=== PATIENT | female | born 1945 | race Caucasian/White ===

== ENCOUNTER 2017-05-16 16:28 | Inpatient (IN) | payer OTHER, BC ==
[2017-05-16 17:01] VITALS: BMI 24.7
--- NOTE | 2017-05-16 17:20 | PDOC ---
History of Present Illness - General History Source: Family Exam Limitations: Other - History of Present Illness Initial Comments: 05/16/17 18:31 The patient is a 71 year old female, with a significant past medical history of , who presents to the emergency department accompanied by family members with signs of altered mental status for an unknown period of time. As per sister who arrived to the patients home from [place] today, the patient was found to be increasingly confused and with multiple lesions to the head, feet, and other extremities. Sister reports patient was able to recognize her and open the door. Family reports the patient lives at home with her brother. As per brother , patient visited her father at the hospital 1 week ago, and since then she has not wanted to leave the house, has been pulling her hair out, missing meals, and not bathing. Family states patient has been under a lot of stress over the past 6 months, as she has been hypervigilant over her father who has been at a retirement facility. Brother reports patient was last known well one week ago. The patient's brother reports she has had multiple episodes of urinary incontinence and she has complained of dysuria. Patient states the words are not making sense. Patients history is limited due to clinical condition. Allergies: Unable to obtain Past Surgical History: None reported Social History: Unknown if ever smoked, any ETOH or recreational drug use. <Nayan Cao - Last Filed: 05/17/17 00:01> <Cesario Smith - Last Filed: 05/17/17 00:07> - General Chief Complaint: Altered Mental Status Stated Complaint: ALTERED MENTAL STATUS Time Seen by Provider: 05/16/17 17:20 Past History <Nayan Cao - Last Filed: 05/17/17 00:01> - Suicide/Smoking/Psychosocial Hx Smoking History: Unknown if ever smoked <Cesario Smith - Last Filed: 05/17/17 00:07> - Past Medical History Allergies/Adverse Reactions: Allergies Allergy/AdvReac Type Severity Reaction Status Date / Time No Allergy Information Allergy Verified 05/16/17 16:50 Available Home Medications: Ambulatory Orders NK [No Known Home Medication] 05/16/17 Review of Systems - Review of Systems Able to Perform ROS?: No Comments:: 05/16/17 18:31 Pt's history is limited due to clinical condition. <Mary Ellen Caoroccophilip - Last Filed: 05/17/17 00:01> *Physical Exam - Vital Signs Last Vital Signs Temp Pulse Resp BP Pulse Ox 108 H 16 156/86 97 05/16/17 16:50 05/16/17 16:50 05/16/17 16:50 05/16/17 16:50 <Nayan Cao - Last Filed: 05/17/17 00:01> - Vital Signs Last Vital Signs Temp Pulse Resp BP Pulse Ox 108 H 16 156/86 97 05/16/17 16:50 05/16/17 16:50 05/16/17 16:50 05/16/17 16:50 - Physical Exam Comments: 05/16/17 17:06 EXAMINATION on initial evaluation CONSTITUTIONAL: Awake and alert; confused, disheveled, in no apparent distress HEAD: Normocephalic; atraumatic; + numerous excoriated circular lesions to the scalp; EYES: PERRL; EOM intact; no photophobia ENMT: External appears normal; mm-dry NECK: Supple; non-tender; no cervical lymphadenopathy; CARD: Normal S1, S2; no murmurs, rubs, or gallops RESP: Normal chest excursion with respiration; breath sounds clear and equal bilaterally; no wheezes, rhonchi, or rales ABD: Soft, non-distended; non-tender; no palpable organomegaly, no palpable hernias EXT: Normal ROM in all four extremities; non-tender to palpation; distal pulses intact SKIN: Warm, dry, + numerous circular (approximately 0.5 cm in diameter), excoriated lesions to upper chest, upper and mid back and lower extremities; NEURO: Patient oriented to self and place only; confused to date; uncooperative , moving all extremities symmetrically, gait-deferred; <Cesario Smith - Last Filed: 05/17/17 00:07> ED Treatment Course - LABORATORY CBC & Chemistry Diagram: 05/16/17 18:00 05/16/17 22:50 - ADDITIONAL ORDERS Additional order review: 05/16/17 18:00 RBC 5.71 H MCV 89.2 MCHC 32.0 RDW 14.4 MPV 9.9 Neutrophils % 77.9 Lymphocytes % 13.4 Monocytes % 7.9 Eosinophils % 0.3 Basophils % 0.5 - RADIOLOGY Radiograph Interpretation: 05/16/17 20:05 EXAM: CXR REVIEWED BY: Dr. Smith IMPRESSION: No acute pathology. EXAM: Head CT INTERPRETED BY: Dr. Valiente REVIEWED BY: Dr. Smith IMPRESSION: There is no evidence of acute infarction. There is no hemorrhage. If symptoms persist or worsen, consider follow brain MRI. - Medications Given in the ED: ED Medications Discontinued Medications Generic Name Dose Route Start Last Admin Trade Name Lina PRN Reason Stop Dose Admin Lorazepam 1 mg 05/16/17 17:36 05/16/17 17:45 Ativan Injection - IVPUSH 05/16/17 17:37 1 mg ONCE ONE Administration <Nayan Cao - Last Filed: 05/17/17 00:01> - LABORATORY CBC & Chemistry Diagram: 05/16/17 18:00 05/16/17 22:50 <Cesario Smith - Last Filed: 05/17/17 00:07> Medical Decision Making - Medical Decision Making 05/16/17 19:59 Patient 71-year-old female without previous medical history who presents to the ER with altered mental status of unknown duration, appearing confused, disheveled, with dry mucous membranes, with multiple excoriated lesions to scalp , chest, back and extremities (likely self-induced). Will rule out organic cause of the patient's delirium; will obtain CT of head; we'll obtain CBC/CMP/ alcohol level/drug screen/UA/urine culture. EKG shows sinus rhythm at 94, without evidence of acute ischemia; I suspect an acute psychotic break. Patient will likely require admission and a psychiatric evaluation inpatient. 05/16/17 20:08 After several attempts at verbal reassurance, patient received 1 mg of Ativan IV for sedation for expectant management. Upon initial evaluation, patient refused vital signs, evaluation by M.D. or an EKG. After administration of Ativan, patient was minimally somnolent but easily arousable, with oxygen saturation of 98% on room air. 05/16/17 20:37 Patient somnolent, easily arousable, does not cooperate at this time. CT of head and is shown mild atrophy but no evidence of acute intracranial pathology. There are no meningeal signs and I do not believe patient requires an LP at this time. I do not suspect meningoencephalitis. CBC shows elevated hemoglobin and hematocrit likely related to hemoconcentration. CMP reveals significant hyponatremia of 155 with elevated BUN and creatinine. Urinalysis shows no evidence of pyuria. Will stop normal saline infusion and will initiate D5W infusion at 125 mL an hour. Will admit with continuous hydration and psychiatric evaluation. 05/17/17 00:07 Repeat CMP reveals sodium 151 and potassium of 3. We'll administer 40 meq of kdur. <Cesario Smith - Last Filed: 05/17/17 00:07> *DC/Admit/Observation/Transfer - Attestations Scribe Attestion: 05/16/17 18:31 Documentation prepared by Nayan Cao, acting as biomedical field service engineer for Cesario Smith MD. <Nayan Cao - Last Filed: 05/17/17 00:01> - Discharge Dispostion Admit: Yes - Attestations Physician Attestion: 05/16/17 19:50 The documentation was prepared by the scribe under my direct supervision. I have reviewed the documentation which correctly represents the findings, medical decision-making and critical action taken by me. <Cesario Smith - Last Filed: 05/17/17 00:07> Diagnosis at time of Disposition: Hypernatremia Altered mental status Qualifiers: Altered mental status type: unspecified Qualified Code(s): R41.82 - Altered mental status, unspecified - Discharge Dispostion Condition at time of disposition: Fair
[2017-05-16] MEDS ORDERED: LORazepam 2 MG/ML SDV VIAL ONE (17:31)
[2017-05-16 18:11] LABS: BASOPHIL 0.5 % (0-2.0); EOSINOPHIL 0.3 % (0-4.5); MCH 28.5 pg (25.7-33.7); MEAN CELL VOLUME 89.2 fl (80-96); MEAN PLT VOLUME 9.9 fl (7.5-11.1); NEUTROPHILS 77.9 % (42.8-82.8); PLATELET COUNT 266 K/MM3 (134-434); RDW 14.4 % (11.6-15.6); WHITE BLOOD COUNT 11.4 K/mm3 (4.0-10.0)
[2017-05-16] MEDS ORDERED: SODIUM CHLORIDE 1,000 ML IV STA (18:20)
[2017-05-16 18:29] LABS: INR 1.18 (0.82-1.09); PROTHROMBIN TIME (PATIENT) 13.3 SEC (9.98-11.88)
[2017-05-16 18:48] LABS: ALBUMIN 3.7 g/dl (3.4-5.0); ANION GAP 10 (8-16); BILIRUBIN,TOTAL 0.9 mg/dL (0.2-1.0); CALCIUM 9.7 mg/dL (8.5-10.1); CO2 27 mmol/L (21-32); CREATININE 1.2 mg/dL (0.55-1.02); GLUCOSE,RANDOM 188 mg/dL (74-106); MAGNESIUM 2.8 mg/dL (1.8-2.4); SGOT/AST 30 U/L (15-37); SGPT/ALT 57 U/L (12-78); TOT PROT 7.6 g/dl (6.4-8.2)
[2017-05-16 18:51] LABS: ALK PHOS 89 U/L (45-117); CPK 106 IU/L (26-192); TROPONIN I < 0.02 ng/ml (0.00-0.05)
[2017-05-16 19:13] LABS: SALICYLATE < 4.0 mg/dl (0.0-30.0)
[2017-05-16] MEDS ORDERED: DEXTROSE 5%-WATER - 1,000 ML IV SCH ×2 (19:15→23:45)
[2017-05-16 20:09] LABS: URINE APPEARANCE SLCLOUDY; URINE BILIRUBIN NEGATIVE (NEGATIVE); URINE BLOOD NEGATIVE (NEGATIVE); URINE COLOR AMBER; URINE GLUCOSE (UA) 1+ (NEGATIVE); URINE KETONE TRACE (NEGATIVE); URINE NITRITE NEGATIVE (NEGATIVE)
[2017-05-16 20:10] LABS: URINE PROTEIN 1+ (NEGATIVE)
[2017-05-16 20:19] LABS: URINE BACTERIA RARE /hpf (NONE SEEN); URINE HYALINE CAST 9 /lpf; URINE MUCUS FEW; URINE RBC 1 /hpf (0-3); URINE WBC 4 /hpf (3-5)
[2017-05-16 20:22] LABS: URINE MARIJUANA THC NEGATIVE ng/ml (CUTOFF=50)
[2017-05-16 23:18] LABS: URINE LEUK ESTERASE Negative (NEGATIVE)
[2017-05-16 23:34] LABS: ANION GAP 9 (8-16); CALCIUM 8.9 mg/dL (8.5-10.1); CO2 28 mmol/L (21-32); CREATININE 1.1 mg/dL (0.55-1.02); GLUCOSE,RANDOM 271 mg/dL (74-106)
--- NOTE | 2017-05-16 23:35 | HP ---
CHIEF COMPLAINT: Altered Mental Status PCP: None HISTORY OF PRESENT ILLNESS: Ms Ramey is a 71yo F with no significant PMHx, no psychiatric history, who was brought to the ER by her sister due to AMS. History was taken from sister and from ER records of what brother states. 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 The sister (who lives out of town) would talk to her over the phone, and slowly notice a decline in her mental status over the past 1 month, stating her words would get shorter, and her thoughts would make less sense. For the past week she did not want to leave her house, and has been pulling her hair out, skipping meals, not drinking water, or bathing. When the sister came to visit, she saw the patient dry, eyes sunken , unkempt, with urine on the floor, and noticeably paranoia saying "you all are not real". ER course was notable for: (1) VSS, Na+ 155 --> given 1L of D5W in ER --> repeat (2) CT head - mild atrophy, no acute infarction, no hemorrhage (3) 2mg Ativan PAST MEDICAL HISTORY: None PAST SURGICAL HISTORY: None Social History: Lives w/ brother Smoking: Unable to obtain Alcohol: Unable to obtain Drugs: Unable to obtain Family History: No family psych history Allergies No Allergy Information Available Allergy (Verified 05/16/17 16:50) REVIEW OF SYSTEMS Unable to be obtained 2/2 sedation from Ativan Vital Signs Temperature Pulse Rate 108 H 05/16/17 16:50 Respiratory Rate 16 05/16/17 16:50 Blood Pressure 156/86 05/16/17 16:50 O2 Sat by Pulse Oximetry (%) 97 05/16/17 16:50 PHYSICAL EXAMINATION GEN: Sleeping, moves head during head and neck exam HEENT: Unable to assess pupils due to head movements during exam, visible excoriations on scalp CV: S1, S2, RRR LUNG: CTABL anteriorly ABD: Soft, NT, ND, normoactive BS MSK: Scattered excoriations along body NEURO: Unable to assess, pt sleeping Laboratory Last Values WBC 11.4 K/mm3 (4.0-10.0) H 05/16/17 18:00 RBC 5.71 M/mm3 (3.60-5.2) H 05/16/17 18:00 Hgb 16.3 GM/dL (10.7-15.3) H 05/16/17 18:00 Hct 51.0 % (32.4-45.2) H 05/16/17 18:00 MCV 89.2 fl (80-96) 05/16/17 18:00 MCH 28.5 pg (25.7-33.7) 05/16/17 18:00 MCHC 32.0 g/dl (32.0-36.0) 05/16/17 18:00 RDW 14.4 % (11.6-15.6) 05/16/17 18:00 Plt Count 266 K/MM3 (134-434) 05/16/17 18:00 MPV 9.9 fl (7.5-11.1) 05/16/17 18:00 Neutrophils % 77.9 % (42.8-82.8) 05/16/17 18:00 Lymphocytes % 13.4 % (8-40) 05/16/17 18:00 Monocytes % 7.9 % (3.8-10.2) 05/16/17 18:00 Eosinophils % 0.3 % (0-4.5) 05/16/17 18:00 Basophils % 0.5 % (0-2.0) 05/16/17 18:00 PT with INR 13.30 SEC (9.98-11.88) H 05/16/17 18:00 INR 1.18 (0.82-1.09) H 05/16/17 18:00 Sodium 155 mmol/L (136-145) H 05/16/17 18:00 Potassium 3.4 mmol/L (3.5-5.1) L 05/16/17 18:00 Chloride 118 mmol/L (98-107) H 05/16/17 18:00 Carbon Dioxide 27 mmol/L (21-32) 05/16/17 18:00 Anion Gap 10 (8-16) 05/16/17 18:00 BUN 50 mg/dL (7-18) H 05/16/17 18:00 Creatinine 1.2 mg/dL (0.55-1.02) H 05/16/17 18:00 Creat Clearance w eGFR 44.54 (>60) 05/16/17 18:00 Random Glucose 188 mg/dL (74-106) H 05/16/17 18:00 Calcium 9.7 mg/dL (8.5-10.1) 05/16/17 18:00 Magnesium 2.8 mg/dL (1.8-2.4) H 05/16/17 18:00 Total Bilirubin 0.9 mg/dL (0.2-1.0) 05/16/17 18:00 AST 30 U/L (15-37) 05/16/17 18:00 ALT 57 U/L (12-78) 05/16/17 18:00 Alkaline Phosphatase 89 U/L (45-117) 05/16/17 18:00 Ammonia 12.16 umol/L (11-32) 05/16/17 18:00 Creatine Kinase 106 IU/L (26-192) 05/16/17 18:00 Troponin I < 0.02 ng/ml (0.00-0.05) 05/16/17 18:00 Total Protein 7.6 g/dl (6.4-8.2) 05/16/17 18:00 Albumin 3.7 g/dl (3.4-5.0) 05/16/17 18:00 Urine Color Isi 05/16/17 19:52 Urine Appearance Slcloudy 05/16/17 19:52 Urine pH 5.0 (5.0-8.0) 05/16/17 19:52 Urine Protein 1+ (NEGATIVE) H 05/16/17 19:52 Urine Glucose (UA) 1+ (NEGATIVE) H 05/16/17 19:52 Urine Ketones Trace (NEGATIVE) H 05/16/17 19:52 Urine Blood Negative (NEGATIVE) 05/16/17 19:52 Urine Nitrite Negative (NEGATIVE) 05/16/17 19:52 Urine Bilirubin Negative (NEGATIVE) 05/16/17 19:52 Urine Urobilinogen 2.0 mg/dL (0.2-1.0) H 05/16/17 19:52 Urine RBC 1 /hpf (0-3) 05/16/17 19:52 Urine WBC 4 /hpf (3-5) 05/16/17 19:52 Ur Epithelial Cells Rare /hpf (FEW) 05/16/17 19:52 Urine Bacteria Rare /hpf (NONE SEEN) 05/16/17 19:52 Hyaline Casts 9 /lpf 05/16/17 19:52 Urine Mucus Few 05/16/17 19:52 Salicylates < 4.0 mg/dl (0.0-30.0) 05/16/17 18:00 Opiates Screen Negative ng/ml (GZUPUE=426) 05/16/17 18:00 Methadone Screen Negative ng/ml (FQSKAV=629) 05/16/17 18:00 Acetaminophen < 2.0 ug/ml (10.0-30.0) L 05/16/17 18:00 Barbiturate Screen Negative ng/ml (ORZNKC=799) 05/16/17 18:00 Phencyclidine Screen Negative ng/ml (CUTOFF=25) 05/16/17 18:00 Ur Amphetamines Screen Negative ng/ml (YZSCEC=754) 05/16/17 18:00 MDMA (Ecstasy) Screen Negative ng/ml (ZPBVXJ=040) 05/16/17 18:00 Benzodiazepines Screen Negative ng/ml (SCZDZH=317) 05/16/17 18:00 Cocaine Screen Negative ng/ml (AWVHMV=637) 05/16/17 18:00 U Marijuana (THC) Screen Negative ng/ml (CUTOFF=50) 05/16/17 18:00 Alcohol, Quantitative < 5.0 mg/dl (0-5) 05/16/17 18:00 ASSESSMENT/PLAN: Ms Ramey is a 71yo F with no significant PMHx, no psychiatric history, who was brought to the ER by her sister due to gradual onset AMS after poor PO intake. Found to have significant hypernatremia of 155. # Acute Psychosis - likely 2/2 progressive hyperNa due to dehydration (Uosm high ), Utox neg, UA neg, CXR neg, NH3 WNL, unlikely new onset schizo - Free Water deficit 3.4L, s/p 1L of D5W in ER, will stop all fluids, repeat BMPs during night, avoid overcorrecting >10meq in 24hr, restart D5W in AM - Psychiatry on board # Hypokalemia - repleted w/ 40mg PO, corrected w/ latest BMP # FEN - Hold fluids until repeat BMP, diabetic diet # PPx - Heparin SQ TID, PT ordered # Dispo - Admit to med/surg, await new BMP, expect improvement in mental status w/ Na+ correction d/w Dr Ra Matt MD - Internal Medicine Visit type - Emergency Visit Emergency Visit: Yes ED Registration Date: 05/16/17 Care time: The patient presented to the Emergency Department on the above date and was hospitalized for further evaluation of their emergent condition. - New Patient This patient is new to me today: Yes Date on this admission: 05/17/17 - Critical Care Critical Care patient: No
[2017-05-16] MEDS ORDERED: POTASSIUM CHLORIDE TABS 20 MEQ TABLET.ER (FP) PO ONE (23:50)
[2017-05-16] MEDS ORDERED: POTASSIUM CHLORIDE TABS 10 MEQ TABLET.ER (FP) ONE (23:53)
--- NOTE | 2017-05-17 01:11 | PN ---
Teaching Attending Note Name of Resident: Agapito Matt ATTENDING PHYSICIAN STATEMENT I saw and evaluated the patient. I reviewed the resident's note and discussed the case with the resident. I agree with the resident's findings and plan as documented with modifications below. SUBJECTIVE: 71-year-old female without previous medical history brought to ER after her sister who came from [place], noticed that she exhibited unusual behavior and was say that "this is not real". She appeared unkept a home, and was "not making sense". She was brought in to the hospital for further evaluation. As per patient's sister, patient had no history of eating disorder, psych disorder , or substance abuse. She lived at home and cared for her father. Pt found to have hypernatremia- 155meq Na, given 1 L NS IV in ER. It was calculated that she has about 2.5 L free water deficit. OBJECTIVE: Last Vital Signs Temp Pulse Resp BP Pulse Ox 108 H 16 156/86 97 05/16/17 16:50 05/16/17 16:50 05/16/17 16:50 05/16/17 16:50 general- drowsy, unkept heent -excoriations found on head neck -supple, no masses cv-s1+s2+ RRR chest cta b/l abdomen- soft, nontender, BS+ extremities- no pitting edema noted Abnormal Lab Results 05/16/17 05/16/17 05/16/17 18:00 18:00 18:00 WBC 11.4 H RBC 5.71 H Hgb 16.3 H Hct 51.0 H PT with INR 13.30 H INR 1.18 H Sodium 155 H Potassium 3.4 L Chloride 118 H BUN 50 H Creatinine 1.2 H Random Glucose 188 H Magnesium 2.8 H Urine Protein Urine Glucose (UA) Urine Ketones Urine Urobilinogen Acetaminophen 05/16/17 05/16/17 05/16/17 18:00 19:52 22:50 WBC RBC Hgb Hct PT with INR INR Sodium 151 H Potassium 3.0 L Chloride 114 H BUN 47 H Creatinine 1.1 H Random Glucose 271 H D Magnesium Urine Protein 1+ H Urine Glucose (UA) 1+ H Urine Ketones Trace H Urine Urobilinogen 2.0 H Acetaminophen < 2.[address] -negative for acute insults ASSESSMENT AND PLAN: #Altered mental status likely 2/[address] wnl. utox negative. Hypernatremia likely over 48hrs and therefore considered chronic. free water defcit of about 2.5 L. Patient given 1L NS in ER. Na has decreased from 154 to 151 Meq. -STOP IV fluids at this time as we do not want to drop sodium too rapidly -repeat BMP with am labs -can restart IVF in after am labs if a appropriate -would subsequently infuse D5W at about 80cc/hr, being careful NOT to drop Na by more than 12 Meq in 24 hrs -I discussed this with ER atng and housestaff. #Hypokalemia -supplement K PRN #hyperglycemia -insulin sliding scale #SHELL -already received IVF -avoid nephrotoxins #DVT ppx -heparin sc
[2017-05-17] MEDS: HEPARIN NA (PORCINE) 5,000 UNITS/ML 1ML VIAL SQ SCH ×3 (02:21→17:22)
[2017-05-17 03:12] LABS: ANION GAP 8 (8-16); CALCIUM 8.9 mg/dL (8.5-10.1); CO2 30 mmol/L (21-32); CREATININE 0.9 mg/dL (0.55-1.02); GLUCOSE,RANDOM 101 mg/dL (74-106)
[2017-05-17 07:35] LABS: BASOPHIL 0.5 % (0-2.0); EOSINOPHIL 1.3 % (0-4.5); MCH 29.5 pg (25.7-33.7); MCHC 33.4 g/dl (32.0-36.0); MEAN CELL VOLUME 88.1 fl (80-96); MEAN PLT VOLUME 9.6 fl (7.5-11.1); NEUTROPHILS 72.6 % (42.8-82.8); PLATELET COUNT 224 K/MM3 (134-434); RDW 14.4 % (11.6-15.6); WHITE BLOOD COUNT 10.2 K/mm3 (4.0-10.0)
[2017-05-17 08:19] LABS: ANION GAP 9 (8-16); CALCIUM 9.2 mg/dL (8.5-10.1); CO2 28 mmol/L (21-32); GLUCOSE,RANDOM 89 mg/dL (74-106)
[2017-05-17 08:21] LABS: CREATININE 0.8 mg/dL (0.55-1.02)
[2017-05-17] MEDS ORDERED: PT OWN MED DRAWER 7, Y5N ONE ×2 (09:02→11:04)
[2017-05-17] MEDS ORDERED: HALOPERIDOL DECANOATE 100 MG/ML IM ONE ×2 (09:13→10:00)
[2017-05-17] MEDS ORDERED: DEXTROSE 5%-WATER - 1,000 ML IV SCH (09:15)
[2017-05-17] MEDS ORDERED: HALOPERIDOL LACTATE 5 MG/ML IM ONE (10:15)
[2017-05-17] MEDS ORDERED: HALOPERIDOL LACTATE 5 MG/ML IM SCH (10:15)
[2017-05-17] MEDS: DEXTROSE 5%-WATER - 1,000 ML IV SCH (11:30)
--- NOTE | 2017-05-17 11:36 | CON.PSY ---
Psychiatry Consult Chief Complaint: Asked to see this patient, a 71 year old female with change in mental status. History of Present Problem: Patient at her bedside Chart reviewed Labs reviewed Nursing input reviewed Patient was found to be confused at home when her sister came to visit her from [place]. She has no hx of psychiatric illnesses and lives wit her brother. According to chart, patient was lately very active and busy visiting her father at the [place]. Symptoms: reports: Other (Very confused unable to give subjective history) - Current Medications Current Medications: Active Medications Haloperidol (Haldol Injection (Fast Acting) -) 2.5 mg IM ONCE MOJGAN Last Admin: 05/17/17 11:17 Dose: 2.5 mg Heparin Sodium (Porcine) (Heparin -) 5,000 unit SQ Q8H-IV MOJGAN Last Admin: 05/17/17 09:10 Dose: 5,000 unit Dextrose (D5w -) 1,000 mls @ 83 mls/hr IV .Q12H3M MOJGAN - Allergies Allergies: Allergies Allergy/AdvReac Type Severity Reaction Status Date / Time No Allergy Information Allergy Verified 05/16/17 16:50 Available - Current Living Status Usual Living Arrangement: Other (With brother) - Current Mental Status Evaluation Appearance: Bizarre Attitude: Suspicious - Affect Affect: Other (congruent) Appropriateness: Not Appropriate - Mood Mood: Anxious - Speech/Language Expressive: Coherent, Incoherent Receptive: Unable to Receive/Comprehend Spoken Words - Psychomotor Activity Psychomotor Activity: Slowed - Thought Process Thought Process: Loosening of Associations, Transgential - Thought Content Hallucinations: Absent Delusions: Present (" We are all in a cave!") Type: Bizarre - Cognition Attention: Other (Attention gained) Memory, Immediate Recall: Impaired Memory, Remote: Impaired - Abstraction Proverb Interpretation: Impaired Judgement: Severely Impaired - Insight Insight: Impaired - Suicidal Ideation Suicidal Ideation: No - Homicidal Ideation Homicidal Ideation: No Assessment/Plan Patient may have an underlying dementia which an affect her ability to recognize thirst as she may be too confused to know that she is thirsty. Doubt delirium as attention was gained, there was no fluctuating in level of consciousness and speech was intact. Rec: Treat hypernatremia/ Follow up with urine C&S t Stop Ativan Stop Haldol and follow mental status.
[2017-05-17 13:30] LABS: ANION GAP 9 (8-16); CALCIUM 9.3 mg/dL (8.5-10.1); CO2 29 mmol/L (21-32); CREATININE 0.8 mg/dL (0.55-1.02); GLUCOSE,RANDOM 111 mg/dL (74-106)
--- NOTE | 2017-05-17 16:49 | PN ---
Teaching Attending Note Name of Resident: Lana Triplett ATTENDING PHYSICIAN STATEMENT SUBJECTIVE: Patient seen and examined, oriented to self and place, but goes on tangential conversations, does answer most questions appropriately, denies any pain or discomfort. OBJECTIVE: Vital Signs Period Temp Pulse Resp BP Sys/Garrido Pulse Ox Last 24 Hr 97.3 F-98.6 F 84-108 16-20 107-156/70-88 97-97 Intake & Output 05/14/17 05/15/17 05/16/17 05/17/17 23:59 23:59 23:59 23:59 Intake Total 200 Balance 200 Weight 140 lb 140 lb General sitting in chair in no acute distress CVS S1S2 regular Chest CTAB, no rales or wheezing abdomen soft, NT, ND, positive bowel sounds, no CVA tenderness extremities no edema Neuro AA, oriented to self and place, power 5/5, EOMI, facial symmetry, sensation exam limited, no gross focal deficit Current Medications Haloperidol (Haldol Injection (Fast Acting) -) 2.5 mg IM ONCE [facility] Last Admin: 05/17/17 11:17 Dose: 2.5 mg Heparin Sodium (Porcine) (Heparin -) 5,000 unit SQ Q8H-IV MOJGAN Last Admin: 05/17/17 09:10 Dose: 5,000 unit Dextrose (D5w -) 1,000 mls @ 83 mls/hr IV .Q12H3M [facility] Laboratory Results - last 24 hr 05/16/17 05/16/17 05/16/17 18:00 18:00 18:00 WBC 11.4 H RBC 5.71 H Hgb 16.3 H Hct 51.0 H MCV 89.2 MCH 28.5 MCHC 32.0 RDW 14.4 Plt Count 266 MPV 9.9 Neutrophils % 77.9 Lymphocytes % 13.4 Monocytes % 7.9 Eosinophils % 0.3 Basophils % 0.5 PT with INR 13.30 H INR 1.18 H Sodium 155 H Potassium 3.4 L Chloride 118 H Carbon Dioxide 27 Anion Gap 10 BUN 50 H Creatinine 1.2 H Creat Clearance w eGFR 44.54 Random Glucose 188 H Calcium 9.7 Magnesium 2.8 H Total Bilirubin 0.9 AST 30 ALT 57 Alkaline Phosphatase 89 Ammonia Creatine Kinase 106 Troponin I < 0.02 Total Protein 7.6 Albumin 3.7 Urine Color Urine Appearance Urine pH Ur Specific [place] Urine Protein Urine Glucose (UA) Urine Ketones Urine Blood Urine Nitrite Urine Bilirubin Urine Urobilinogen Ur Leukocyte Esterase Urine RBC Urine WBC Ur Epithelial Cells Urine Bacteria Hyaline Casts Urine Mucus Urine Osmolality Ur Random Sodium Salicylates Opiates Screen Methadone Screen Acetaminophen Barbiturate Screen Phencyclidine Screen Ur Amphetamines Screen MDMA (Ecstasy) Screen Benzodiazepines Screen Cocaine Screen U Marijuana (THC) Screen Alcohol, Quantitative 05/16/17 05/16/17 05/16/17 18:00 18:00 18:00 WBC RBC Hgb Hct MCV MCH MCHC RDW Plt Count MPV Neutrophils % Lymphocytes % Monocytes % Eosinophils % Basophils % PT with INR INR Sodium Potassium Chloride Carbon Dioxide Anion Gap BUN Creatinine Creat Clearance w eGFR Random Glucose Calcium Magnesium Total Bilirubin AST ALT Alkaline Phosphatase Ammonia 12.16 Creatine Kinase Troponin I Total Protein Albumin Urine Color Urine Appearance Urine pH Ur Specific [place] Urine Protein Urine Glucose (UA) Urine Ketones Urine Blood Urine Nitrite Urine Bilirubin Urine Urobilinogen Ur Leukocyte Esterase Urine RBC Urine WBC Ur Epithelial Cells Urine Bacteria Hyaline Casts Urine Mucus Urine Osmolality Ur Random Sodium Salicylates Opiates Screen Negative Methadone Screen Negative Acetaminophen Barbiturate Screen Negative Phencyclidine Screen Negative Ur Amphetamines Screen Negative MDMA (Ecstasy) Screen Negative Benzodiazepines Screen Negative Cocaine Screen Negative U Marijuana (THC) Screen Negative Alcohol, Quantitative < 5.0 05/16/17 05/16/17 05/16/17 18:00 19:52 22:50 WBC RBC Hgb Hct MCV MCH MCHC RDW Plt Count MPV Neutrophils % Lymphocytes % Monocytes % Eosinophils % Basophils % PT with INR INR Sodium 151 H Potassium 3.0 L Chloride 114 H Carbon Dioxide 28 Anion Gap 9 BUN 47 H Creatinine 1.1 H Creat Clearance w eGFR Random Glucose 271 H D Calcium 8.9 Magnesium Total Bilirubin AST ALT Alkaline Phosphatase Ammonia Creatine Kinase Troponin I Total Protein Albumin Urine Color Isi Urine Appearance Slcloudy Urine pH 5.0 Ur Specific [place] 1.025 Urine Protein 1+ H Urine Glucose (UA) 1+ H Urine Ketones Trace H Urine Blood Negative Urine Nitrite Negative Urine Bilirubin Negative Urine Urobilinogen 2.0 H Ur Leukocyte Esterase Negative Urine RBC 1 Urine WBC 4 Ur Epithelial Cells Rare Urine Bacteria Rare Hyaline Casts 9 Urine Mucus Few Urine Osmolality Ur Random Sodium Salicylates < 4.0 Opiates Screen Methadone Screen Acetaminophen < 2.0 L Barbiturate Screen Phencyclidine Screen Ur Amphetamines Screen MDMA (Ecstasy) Screen Benzodiazepines Screen Cocaine Screen U Marijuana (THC) Screen Alcohol, Quantitative 05/16/17 05/16/17 05/17/17 23:37 23:37 02:46 WBC RBC Hgb Hct MCV MCH MCHC RDW Plt Count MPV Neutrophils % Lymphocytes % Monocytes % Eosinophils % Basophils % PT with INR INR Sodium 151 H Potassium 4.0 D Chloride 113 H Carbon Dioxide 30 Anion Gap 8 BUN 42 H Creatinine 0.9 Creat Clearance w eGFR Random Glucose 101 D Calcium 8.9 Magnesium Total Bilirubin AST ALT Alkaline Phosphatase Ammonia Creatine Kinase Troponin I Total Protein Albumin Urine Color Urine Appearance Urine pH Ur Specific [place] Urine Protein Urine Glucose (UA) Urine Ketones Urine Blood Urine Nitrite Urine Bilirubin Urine Urobilinogen Ur Leukocyte Esterase Urine RBC Urine WBC Ur Epithelial Cells Urine Bacteria Hyaline Casts Urine Mucus Urine Osmolality 1208 H Ur Random Sodium 223 Salicylates Opiates Screen Methadone Screen Acetaminophen Barbiturate Screen Phencyclidine Screen Ur Amphetamines Screen MDMA (Ecstasy) Screen Benzodiazepines Screen Cocaine Screen U Marijuana (THC) Screen Alcohol, Quantitative 05/17/17 05/17/17 05/17/17 06:00 06:00 12:35 WBC 10.2 H RBC 4.88 Hgb 14.4 D Hct 43.0 D MCV 88.1 MCH 29.5 MCHC 33.4 RDW 14.4 Plt Count 224 MPV 9.6 Neutrophils % 72.6 Lymphocytes % 16.3 D Monocytes % 9.3 Eosinophils % 1.3 D Basophils % 0.5 PT with INR INR Sodium 151 H 151 H Potassium 3.7 3.7 Chloride 114 H 113 H Carbon Dioxide 28 29 Anion Gap 9 9 BUN 41 H 38 H Creatinine 0.8 0.8 Creat Clearance w eGFR Random Glucose 89 111 H D Calcium 9.2 9.3 Magnesium Total Bilirubin AST ALT Alkaline Phosphatase Ammonia Creatine Kinase Troponin I Total Protein Albumin Urine Color Urine Appearance Urine pH Ur Specific [place] Urine Protein Urine Glucose (UA) Urine Ketones Urine Blood Urine Nitrite Urine Bilirubin Urine Urobilinogen Ur Leukocyte Esterase Urine RBC Urine WBC Ur Epithelial Cells Urine Bacteria Hyaline Casts Urine Mucus Urine Osmolality Ur Random Sodium Salicylates Opiates Screen Methadone Screen Acetaminophen Barbiturate Screen Phencyclidine Screen Ur Amphetamines Screen MDMA (Ecstasy) Screen Benzodiazepines Screen Cocaine Screen U Marijuana (THC) Screen Alcohol, Quantitative ASSESSMENT AND PLAN: 71 yof with AMS/paranoia, Hypernatremia. -AMS, ?enecephalopathy from hypernatremia, vs Acute psychosis from recent stressors that was exacerbated by her dehydration/hypernatremia -Hypovolumic hypernatremia Plan Resumed D5wat 80 ml/hr this AM, repeat Na unchanged, increase to 100 ml/hr, repeat BMP at 8 pm today, encourage PO intake, Neuro checks. Psychiatry input appreciated. Hold ativan and haldol. urinalysis neg, unlikely that UTI is contributing to current symptoms. Monitor for now. Change heparin to lovenox for DVTPPx. Dispo pending improvement in hypernatremia. Further dispo outpatient vs psych to be determined based on hospital course.
[2017-05-17 21:01] LABS: ANION GAP 8 (8-16); CALCIUM 9.3 mg/dL (8.5-10.1); CO2 28 mmol/L (21-32); CREATININE 0.8 mg/dL (0.55-1.02); GLUCOSE,RANDOM 128 mg/dL (74-106)
[2017-05-17] MEDS ORDERED: POTASSIUM CHLORIDE TABS 20 MEQ TABLET.ER (FP) PO ONE (22:48)
[2017-05-18] MEDS: DEXTROSE 5%-WATER - 1,000 ML IV SCH ×2 (00:43→13:45)
[2017-05-18] MEDS: HEPARIN NA (PORCINE) 5,000 UNITS/ML 1ML VIAL SQ SCH (02:04)
[2017-05-18] MEDS ORDERED: POTASSIUM CHLORIDE TABS 20 MEQ TABLET.ER (FP) PO ONE (07:43)
[2017-05-18 08:09] LABS: BASOPHIL 0.6 % (0-2.0); EOSINOPHIL 1.9 % (0-4.5); MCH 29.4 pg (25.7-33.7); MCHC 33.7 g/dl (32.0-36.0); MEAN CELL VOLUME 87.4 fl (80-96); MEAN PLT VOLUME 11.5 fl (7.5-11.1); NEUTROPHILS 63.6 % (42.8-82.8); PLATELET COUNT 153 K/MM3 (134-434); RDW 14.4 % (11.6-15.6); WHITE BLOOD COUNT 8.4 K/mm3 (4.0-10.0)
[2017-05-18 08:40] LABS: ALBUMIN 3.2 g/dl (3.4-5.0); ANION GAP 8 (8-16); CALCIUM 8.7 mg/dL (8.5-10.1); CO2 26 mmol/L (21-32); GLUCOSE,RANDOM 136 mg/dL (74-106)
[2017-05-18 08:44] LABS: ALK PHOS 77 U/L (45-117); BILIRUBIN,TOTAL 1.5 mg/dL (0.2-1.0); CREATININE 0.7 mg/dL (0.55-1.02); SGOT/AST 66 U/L (15-37); SGPT/ALT 83 U/L (12-78); TOT PROT 6.3 g/dl (6.4-8.2)
[2017-05-18] MEDS: ENOXAPARIN NA (PORCINE) 40 MG/0.4 ML DISP.SYRIN SQ SCH (09:58)
[2017-05-18 16:06] LABS: ANION GAP 7 (8-16); CALCIUM 9.1 mg/dL (8.5-10.1); CO2 28 mmol/L (21-32); CREATININE 0.7 mg/dL (0.55-1.02); GLUCOSE,RANDOM 117 mg/dL (74-106)
--- NOTE | 2017-05-18 17:07 | PN ---
Teaching Attending Note Name of Resident: Agapito Matt ATTENDING PHYSICIAN STATEMENT time of evaluation 9:30 AM I saw and evaluated the patient. I reviewed the resident's note and discussed the case with the resident. I agree with the resident's findings and plan as documented. SUBJECTIVE: patient seen and examined, oriented to self only, feels has not been alive for a few weeks, tangential conversations, though responds to ROS appropriately. No complaints. OBJECTIVE: Vital Signs Period Temp Pulse Resp BP Sys/Garrido Pulse Ox Last 24 Hr 97.3 F-98.9 F 84-99 18-20 116-158/56-94 97-98 Intake & Output 05/15/17 05/16/17 05/17/17 05/18/17 23:59 23:59 23:59 23:59 Intake Total 1736 0 Output Total 600 Balance 1736 -600 Weight 140 lb 140 lb general lying in bed in no acute distress CVS S1S2 regular Chest CTAB, no rales or wheezing abdomen soft, NT, ND, positive bowel sounds extremities no edema Neuro AA, oriented to self, but tangential in her conversations, facial symmetry , power 5/5, sensation positive to light touch, no pronator drift Current Medications Enoxaparin Sodium (Lovenox -) 40 mg SQ DAILY [facility] Last Admin: 05/18/17 09:58 Dose: 40 mg Dextrose/Sodium Chloride (D5-1/2ns -) 1,000 mls @ 75 mls/hr IV ASDIR [facility] Laboratory Results - last 24 hr 05/17/17 05/18/17 05/18/17 20:00 07:00 07:00 WBC 8.4 RBC 4.68 Hgb 13.8 Hct 40.9 MCV 87.4 MCH 29.4 MCHC 33.7 RDW 14.4 Plt Count 153 D MPV 11.5 H D Neutrophils % 63.6 Lymphocytes % 24.9 D Monocytes % 9.0 Eosinophils % 1.9 Basophils % 0.6 Sodium 149 H 146 H Potassium 3.4 L 3.6 Chloride 113 H 112 H Carbon Dioxide 28 26 Anion Gap 8 8 BUN 32 H 26 H Creatinine 0.8 0.7 Creat Clearance w eGFR > 60 Random Glucose 128 H 136 H Calcium 9.3 8.7 Total Bilirubin 1.5 H D Direct Bilirubin Cancelled AST 66 H D ALT 83 H D Alkaline Phosphatase 77 Total Protein 6.3 L Albumin 3.2 L 10/30/17 14:40 WBC RBC Hgb Hct MCV MCH MCHC RDW Plt Count MPV Neutrophils % Lymphocytes % Monocytes % Eosinophils % Basophils % Sodium 144 Potassium 3.8 Chloride 109 H Carbon Dioxide 28 Anion Gap 7 L BUN 19 H D Creatinine 0.7 Creat Clearance w eGFR Random Glucose 117 H Calcium 9.1 Total Bilirubin Direct Bilirubin AST ALT Alkaline Phosphatase Total Protein Albumin ASSESSMENT AND PLAN: 71 yof with AMS/paranoia, Hypernatremia. -AMS, ?Encephalopathy from hypernatremia, vs Acute psychosis from recent stressors that was exacerbated by her dehydration/hypernatremia -Hypovolumic hypernatremia Plan Na improving, change IVF to D51/2NS, repeat Na in AM. suspect all from poor po intake and hypovolumia. Encourage oral intake. Psychiatry input appreciated. Hold ativan and haldol. urinalysis neg, unlikely that UTI is contributing to current symptoms. Monitor for now. Dispo Continues to be paranoid inspite of appropriate Na correction. Unlikely metabolic. suspect underlying psychiatric concerns exacerbated from above. Discuss with psychiatry about disposition plan,?inpatient psych.
--- NOTE | 2017-05-18 17:09 | PN ---
Physical Exam: SUBJECTIVE: Patient seen and examined this AM. States she feels she is , and we are all ghosts. Not oriented. Calm, not combative. OBJECTIVE: Vital Signs Period Temp Pulse Resp BP Sys/Garrido Pulse Ox Last 24 Hr 97.3 F-98.9 F 84-99 18-20 116-158/56-94 97-98 GEN: Awake, alert, not oriented, believes she is , tangential with conversations, not combative HEENT: PERRLA, EOMi CV: S1, S2, RRR LUNG: CTABL ABD: Soft, NT, ND, normoactive BS MSK: Scattered excoriations along body NEURO: Difficult to assess, patient is tangential in thoughts Laboratory Last Values WBC 8.4 K/mm3 (4.0-10.0) 05/18/17 07:00 RBC 4.68 M/mm3 (3.60-5.2) 05/18/17 07:00 Hgb 13.8 GM/dL (10.7-15.3) 05/18/17 07:00 Hct 40.9 % (32.4-45.2) 05/18/17 07:00 MCV 87.4 fl (80-96) 05/18/17 07:00 MCH 29.4 pg (25.7-33.7) 05/18/17 07:00 MCHC 33.7 g/dl (32.0-36.0) 05/18/17 07:00 RDW 14.4 % (11.6-15.6) 05/18/17 07:00 Plt Count 153 K/MM3 (134-434) D 05/18/17 07:00 MPV 11.5 fl (7.5-11.1) H D 05/18/17 07:00 Neutrophils % 63.6 % (42.8-82.8) 05/18/17 07:00 Lymphocytes % 24.9 % (8-40) D 05/18/17 07:00 Monocytes % 9.0 % (3.8-10.2) 05/18/17 07:00 Eosinophils % 1.9 % (0-4.5) 05/18/17 07:00 Basophils % 0.6 % (0-2.0) 05/18/17 07:00 PT with INR 13.30 SEC (9.98-11.88) H 05/16/17 18:00 INR 1.18 (0.82-1.09) H 05/16/17 18:00 Sodium 144 mmol/L (136-145) 05/18/17 14:40 Potassium 3.8 mmol/L (3.5-5.1) 05/18/17 14:40 Chloride 109 mmol/L (98-107) H 05/18/17 14:40 Carbon Dioxide 28 mmol/L (21-32) 05/18/17 14:40 Anion Gap 7 (8-16) L 05/18/17 14:40 BUN 19 mg/dL (7-18) H D 05/18/17 14:40 Creatinine 0.7 mg/dL (0.55-1.02) 05/18/17 14:40 Creat Clearance w eGFR > 60 (>60) 05/18/17 07:00 Random Glucose 117 mg/dL (74-106) H 05/18/17 14:40 Calcium 9.1 mg/dL (8.5-10.1) 05/18/17 14:40 Magnesium 2.8 mg/dL (1.8-2.4) H 05/16/17 18:00 Total Bilirubin 1.5 mg/dL (0.2-1.0) H D 05/18/17 07:00 Direct Bilirubin Cancelled 05/18/17 07:00 AST 66 U/L (15-37) H D 05/18/17 07:00 ALT 83 U/L (12-78) H D 05/18/17 07:00 Alkaline Phosphatase 77 U/L (45-117) 05/18/17 07:00 Ammonia 12.16 umol/L (11-32) 05/16/17 18:00 Creatine Kinase 106 IU/L (26-192) 05/16/17 18:00 Troponin I < 0.02 ng/ml (0.00-0.05) 05/16/17 18:00 Total Protein 6.3 g/dl (6.4-8.2) L 05/18/17 07:00 Albumin 3.2 g/dl (3.4-5.0) L 05/18/17 07:00 Urine Color Isi 05/16/17 19:52 Urine Appearance Slcloudy 05/16/17 19:52 Urine pH 5.0 (5.0-8.0) 05/16/17 19:52 Ur Specific [place] 1.025 (1.005-1.025) 05/16/17 19:52 Urine Protein 1+ (NEGATIVE) H 05/16/17 19:52 Urine Glucose (UA) 1+ (NEGATIVE) H 05/16/17 19:52 Urine Ketones Trace (NEGATIVE) H 05/16/17 19:52 Urine Blood Negative (NEGATIVE) 05/16/17 19:52 Urine Nitrite Negative (NEGATIVE) 05/16/17 19:52 Urine Bilirubin Negative (NEGATIVE) 05/16/17 19:52 Urine Urobilinogen 2.0 mg/dL (0.2-1.0) H 05/16/17 19:52 Ur Leukocyte Esterase Negative (NEGATIVE) 05/16/17 19:52 Urine RBC 1 /hpf (0-3) 05/16/17 19:52 Urine WBC 4 /hpf (3-5) 05/16/17 19:52 Ur Epithelial Cells Rare /hpf (FEW) 05/16/17 19:52 Urine Bacteria Rare /hpf (NONE SEEN) 05/16/17 19:52 Hyaline Casts 9 /lpf 05/16/17 19:52 Urine Mucus Few 05/16/17 19:52 Urine Osmolality 1208 mosm/kg (300-900) H 05/16/17 23:37 Ur Random Sodium 223 MMOL/L 05/16/17 23:37 Salicylates < 4.0 mg/dl (0.0-30.0) 05/16/17 18:00 Opiates Screen Negative ng/ml (SSAQGP=558) 05/16/17 18:00 Methadone Screen Negative ng/ml (UCWOND=939) 05/16/17 18:00 Acetaminophen < 2.0 ug/ml (10.0-30.0) L 05/16/17 18:00 Barbiturate Screen Negative ng/ml (ENFBJT=571) 05/16/17 18:00 Phencyclidine Screen Negative ng/ml (CUTOFF=25) 05/16/17 18:00 Ur Amphetamines Screen Negative ng/ml (KLJRJC=163) 05/16/17 18:00 MDMA (Ecstasy) Screen Negative ng/ml (KZTJNO=741) 05/16/17 18:00 Benzodiazepines Screen Negative ng/ml (RZEJKM=424) 05/16/17 18:00 Cocaine Screen Negative ng/ml (BOUAVP=739) 05/16/17 18:00 U Marijuana (THC) Screen Negative ng/ml (CUTOFF=50) 05/16/17 18:00 Alcohol, Quantitative < 5.0 mg/dl (0-5) 05/16/17 18:00 Active Medications Generic Name Dose Route Start Last Admin Trade Name Lina PRN Reason Stop Dose Admin Enoxaparin Sodium 40 mg 05/18/17 10:00 05/18/17 09:58 Lovenox - SQ 40 mg DAILY MOJGAN Administration Dextrose/Sodium Chloride 1,000 mls @ 75 mls/hr 05/18/17 16:30 D5-1/2ns - IV ASDIR MOJGAN ASSESSMENT/PLAN: Ms Ramey is a 71yo F with no significant PMHx, no psychiatric history, who was brought to the ER by her sister due to gradual onset AMS after poor PO intake. Found to have significant hypernatremia of 155. # Acute on Chronic Encephalopathy - likely underlying dementia or psychiatric condition exacerbated by progressive hyperNa due to dehydration, Utox neg, UA neg, CXR neg, NH3 WNL - s/p D5W, Na+ corrected, changed to D5-1/2NS, still confused, Psychiatry believes underlying non-metabolic process ?dementia ?psychiatric condition, will discuss long-term care w/ family # Hypokalemia - resolved # FEN - D5 1/2NS, diabetic diet # PPx - Heparin SQ TID, PT ordered # Dispo - Psychiatry to see today, if recommend long-term care will have discussion w/ family tmrw with CM on board d/w Dr Uziel Matt MD - Internal Medicine Visit type - Emergency Visit Emergency Visit: No - New Patient This patient is new to me today: No - Critical Care Critical Care patient: No - Discharge Referral Referred to [facility] No
[2017-05-18] MEDS: DEXTROSE 5%-0.45% SALINE 1,000 ML IV SCH (18:11)
--- NOTE | 2017-05-18 18:49 | PN ---
Progress Note (short form) - Note Progress Note: Psych follow up. Patient seen, case reviewed, case discussed with . 71 year old female admitted with an acute onset of paranoia, confusion and paranoia. hypernatremia has been corrected , However swhe continues to be confused, disoriented and with some delusional thoughts. she is also accusing people being imposters. Refusing to eat because4 she feels her vfood is poisoned. Consusion aPPEARS TO BE THE PREDOMINANT SYMPTOM AT TYHIS TIME. Past Psych: No history of any previuos psych Illness. She had been actively involved in caring for ailing father, who apparantly . Rec: will start Zyprexa 5mg po hs fpr paranoia and restlessness. 2) patient clearly needs Shelter care to stabilize her physical and mental status. [facility] probably the best place for this captient due to her severe cognitive impairment. 3) would suggest Neuro consult with .
[2017-05-18] MEDS: OLANZapine 5 MG TABLET PO SCH (21:09)
[2017-05-18] MEDS ORDERED: OLANZapine 5 MG TABLET PO SCH (22:00)
--- NOTE | 2017-05-19 09:16 | PN ---
Physical Exam: SUBJECTIVE: Patient seen and examined. Still believes she is . Believes we are poisoning her food. Still AAOx0. Refused Zyprexa last night. No CP, SOB. Not eating food well. OBJECTIVE: Vital Signs Period Temp Pulse Resp BP Sys/Garrido Pulse Ox Last 24 Hr 97.6 F-98.4 F 82-99 18-20 133-147/72-94 98 GEN: Awake, alert, not oriented, believes she is not alive and everyone is poisoning her, tangential with conversations, not combative HEENT: PERRLA, EOMi CV: S1, S2, RRR LUNG: CTABL ABD: Soft, NT, ND, normoactive BS MSK: Scattered excoriations along body NEURO: Difficult to assess, patient is still tangential in thoughts Laboratory Results - last 24 hr 05/18/17 05/18/17 07:00 14:40 Sodium 146 H 144 Potassium 3.6 3.8 Chloride 112 H 109 H Carbon Dioxide 26 28 Anion Gap 8 7 L BUN 26 H 19 H D Creatinine 0.7 0.7 Creat Clearance w eGFR > 60 Random Glucose 136 H 117 H Calcium 8.7 9.1 Total Bilirubin 1.5 H D Direct Bilirubin Cancelled AST 66 H D ALT 83 H D Alkaline Phosphatase 77 Total Protein 6.3 L Albumin 3.2 L Active Medications Generic Name Dose Route Start Last Admin Trade Name Freq PRN Reason Stop Dose Admin Enoxaparin Sodium 40 mg 05/18/17 10:00 05/18/17 09:58 Lovenox - SQ 40 mg DAILY MOJGAN Administration Dextrose/Sodium Chloride 1,000 mls @ 75 mls/hr 05/18/17 16:30 05/18/17 18:11 D5-1/2ns - IV 75 mls/hr ASDIR MOJGAN Administration Olanzapine 5 mg 05/18/17 22:00 05/18/17 21:09 Zyprexa - PO Not Given HS MOJGAN ASSESSMENT/PLAN: Ms Ramey is a 71yo F with no significant PMHx, no psychiatric history, who was brought to the ER by her sister due to gradual onset AMS after poor PO intake. Found to have significant hypernatremia of 155. # Acute on Chronic Encephalopathy - metabolic w/u negative, likely underlying dementia or psychiatric condition exacerbated by recent stressors - Na+ corrected, on D5-1/2NS, still confused, likely underlying non- metabolic process ?dementia ?psychiatric condition - Discussed with pts family who agrees to SNF placement as for now; Pt did fail PT so qualifies for SNF, SW on the case - Will d/c claudia vest for now due to hopeful SNF placement tmrw - Avoid haldol, ativan; encourage night-time Zyprexa # Hypokalemia - resolved # FEN - D5 1/2NS @ 75cc/hr, diabetic diet # PPx - Heparin SQ TID, PT ordered # Dispo - Hopeful transfer to SNF tmrw, failed PT, will need long-term care for psychiatric disease Agapito Matt MD - Internal Medicine Visit type - Emergency Visit Emergency Visit: No - New Patient This patient is new to me today: No - Critical Care Critical Care patient: No - Discharge Referral Referred to [facility] No
[2017-05-19] MEDS: DEXTROSE 5%-0.45% SALINE 1,000 ML IV SCH (10:12)
[2017-05-19] MEDS: ENOXAPARIN NA (PORCINE) 40 MG/0.4 ML DISP.SYRIN SQ SCH (10:13)
[2017-05-19 11:25] LABS: ANION GAP 7 (8-16); CALCIUM 8.7 mg/dL (8.5-10.1); CO2 29 mmol/L (21-32); CREATININE 0.7 mg/dL (0.55-1.02); GLUCOSE,RANDOM 121 mg/dL (74-106)
--- NOTE | 2017-05-19 13:07 | CONSULT ---
Consult - text type - Consultation Consultation Note: Neurology History of Present Illness The patient is a 71 year old female, with reportedly no significant past medical history who presented to the emergency department reportedly accompanied by family members with signs of altered mental status for an unknown period of time. As per sister who arrived to the patients home from [place] n day of admission, the patient was found to be increasingly confused and with multiple lesions to the head, feet, and other extremities. Sister reports patient was able to recognize her and open the door. Family reports the patient lives at home with her brother. As per brother, patient visited her father at the hospital 1 week ago, and since then she has not wanted to leave the house, has been pulling her hair out, missing meals, and not bathing. Family states patient has been under a lot of stress over the past 6 months, as she has been hypervigilant over her father who has been at a retirement facility. The patient's brother reports she has had multiple episodes of urinary incontinence and she has complained of dysuria. Patient states the words are not making sense. the patient was admitted for further evaluation and management. She completed a noncontrast head CT which did not show any acute changes. During my evaluation, she was minimally verbal and if I asked what was bothering her she would not respond. She was asking if it will ever end, if asked hat she meant by that, she would say will the day ever end? She was seen by psychiatry and has been put on medication. She seems very guarded during my evaluation and possibly internally preoccupied. Unclear if recent stressors may have but will evaluate for any organic etiology. Past History - Suicide/Smoking/Psychosocial Hx Smoking History: Unknown if ever smoked - Past Medical History Allergies/Adverse Reactions: Allergies Allergy/AdvReac Type Severity Reaction Status Date / Time No Allergy Information Allergy Verified 05/16/17 16:50 Available Home Medications: Ambulatory Orders NK [No Known Home Medication] 05/16/17 Review of Systems Pt's history is limited due to clinical condition. *Physical Exam Vital Signs Period Temp Pulse Resp BP Sys/Garrido Pulse Ox Last 24 Hr 97.6 F-97.9 F 75-95 18-20 114-139/72-77 98-98 CONSTITUTIONAL: Awake and alert; confused, disheveled, in no apparent distress HEAD: Normocephalic; atraumatic; + numerous excoriated circular lesions to the scalp; EYES: PERRL; EOM intact; no photophobia ENMT: External appears normal; mm-dry NECK: Supple; non-tender; no cervical lymphadenopathy; CARD: Normal S1, S2; no murmurs, rubs, or gallops RESP: Normal chest excursion with respiration; breath sounds clear and equal bilaterally; no wheezes, rhonchi, or rales ABD: Soft, non-distended; non-tender; no palpable organomegaly, no palpable hernias EXT: Normal ROM in all four extremities; non-tender to palpation; distal pulses intact SKIN: Warm, dry, + numerous circular (approximately 0.5 cm in diameter), excoriated lesions to upper chest, upper and mid back and lower extremities; NEURO: Patient oriented to self and place only; confused to date; uncooperative , moving all extremities symmetrically, gait-deferred; CBCD WBC 8.4 K/mm3 (4.0-10.0) 05/18/17 07:00 RBC 4.68 M/mm3 (3.60-5.2) 05/18/17 07:00 Hgb 13.8 GM/dL (10.7-15.3) 05/18/17 07:00 Hct 40.9 % (32.4-45.2) 05/18/17 07:00 MCV 87.4 fl (80-96) 05/18/17 07:00 MCHC 33.7 g/dl (32.0-36.0) 05/18/17 07:00 RDW 14.4 % (11.6-15.6) 05/18/17 07:00 Plt Count 153 K/MM3 (134-434) D 05/18/17 07:00 MPV 11.5 fl (7.5-11.1) H D 05/18/17 07:00 CMP Sodium 143 mmol/L (136-145) 05/19/17 10:40 Potassium 4.2 mmol/L (3.5-5.1) 05/19/17 10:40 Chloride 107 mmol/L (98-107) 05/19/17 10:40 Carbon Dioxide 29 mmol/L (21-32) 05/19/17 10:40 Anion Gap 7 (8-16) L 05/19/17 10:40 BUN 13 mg/dL (7-18) D 05/19/17 10:40 Creatinine 0.7 mg/dL (0.55-1.02) 05/19/17 10:40 Creat Clearance w eGFR > 60 (>60) 05/18/17 07:00 Calcium 8.7 mg/dL (8.5-10.1) 05/19/17 10:40 Total Bilirubin 1.5 mg/dL (0.2-1.0) H D 05/18/17 07:00 AST 66 U/L (15-37) H D 05/18/17 07:00 ALT 83 U/L (12-78) H D 05/18/17 07:00 Alkaline Phosphatase 77 U/L (45-117) 05/18/17 07:00 Total Protein 6.3 g/dl (6.4-8.2) L 05/18/17 07:00 Albumin 3.2 g/dl (3.4-5.0) L 05/18/17 07:00 - RADIOLOGY EXAM: CXR IMPRESSION: No acute pathology. EXAM: Head CT INTERPRETED BY: Dr. Valiente IMPRESSION: There is no evidence of acute infarction. There is no hemorrhage. If symptoms persist or worsen, consider follow brain MRI. Medical Decision Making 71 year old female, with reportedly no significant past medical history who presented to the emergency department reportedly accompanied by family members with signs of altered mental status for an unknown period of time. She completed a noncontrast head CT which did not show any acute changes. She was seen by psychiatry and has been put on medication. Follow up Psych recommendation She seems very guarded during my evaluation and possibly internally preoccupied. Unclear if recent stressors may have but will evaluate for any organic etiology. MRI brain ordered Monitor labs/lytes Check for possible sources of infection Hypernatremia has improved Increased PO and IV hydration Reorientation as much as able
--- NOTE | 2017-05-19 20:33 | PN ---
Teaching Attending Note Name of Resident: Agapito Matt ATTENDING PHYSICIAN STATEMENT I saw and evaluated the patient. I reviewed the resident's note and discussed the case with the resident. I agree with the resident's findings and plan as documented. SUBJECTIVE: Patient comfortable lying in bed. She is alert, oriented to person. At times, she is paranoid. OBJECTIVE: Vital Signs Period Temp Pulse Resp BP Sys/Garrido Pulse Ox Last 24 Hr 97.6 F-98.5 F 75-88 18-20 114-139/72-78 98-98 HEART: S1S2, RRR LUNGS: Clear ABDOMEN: Soft, non-tender, non-distended, normal BS EXTREMITIES: No edema Current Medications Generic Name Dose Route Start Last Admin Trade Name Freq PRN Reason Stop Dose Admin Enoxaparin Sodium 40 mg 05/18/17 10:00 05/19/17 10:13 Lovenox - SQ 40 mg DAILY MOJGAN Administration Dextrose/Sodium Chloride 1,000 mls @ 75 mls/hr 05/18/17 16:30 05/19/17 10:12 D5-1/2ns - IV 75 mls/hr ASDIR MOJGAN Administration Olanzapine 5 mg 05/18/17 22:00 05/18/17 21:09 Zyprexa - PO Not Given HS MOJGAN ASSESSMENT AND PLAN: This is a 71 year old woman with no significant medical history who presented to the ER with confusion and poor oral intake. 1. Encephalopathy with paranoia - Etiology unclear - Remains confused after sodium has been corrected - Continue Zyprexa - Possible dementia - MRI of brain ordered 2. Hypernatremia - Improved 3. Hypokalemia - Improved
[2017-05-19] MEDS: OLANZapine 5 MG TABLET PO SCH ×2 (22:26→22:31)
[2017-05-20] MEDS: DEXTROSE 5%-0.45% SALINE 1,000 ML IV SCH ×2 (01:54→18:06)
--- NOTE | 2017-05-20 08:37 | CON.PSL ---
Psychology Consult Consult Specialty:: Clinical Psychology and Neuropsychology Reason for Consultation:: Pt. exhibits mental confusion, no appetite and unable to care for personal needs. History Provided By: Patient Limitations to Obtaining History: Clinical Condition Current Medications: Active Medications Enoxaparin Sodium (Lovenox -) 40 mg SQ DAILY [facility] Last Admin: 05/19/17 10:13 Dose: 40 mg Dextrose/Sodium Chloride (D5-1/2ns -) 1,000 mls @ 75 mls/hr IV ASDIR [facility] Last Admin: 05/20/17 01:54 Dose: 75 mls/hr Olanzapine (Zyprexa -) 5 mg PO HS [facility] Last Admin: 05/19/17 22:31 Dose: Not Given Allergies: Allergies Allergy/AdvReac Type Severity Reaction Status Date / Time No Known Allergies Allergy Verified 05/18/17 19:19 Does patient have pain?: No (Pt. denies pain.) Hx Alcohol Use: No Hx Substance Use: No Hx Substance Use Treatment: No - Family History Family History: Unremarkable (The patient did not indicate any issues regarding her family. She stated that she lived with her brother. 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 It did not appear to be a language barrier but a processing deficit.) Danger to Self and Others: No (She denied thoughts of sucidality and does not present as a danger to others.) Sleep: Poorly Appetite: Poor Serial Sevens Intact: No (She could not spell world backwards either.) Repeats 3 words told earlier: 2/3 Support System: Family (She could not state if she engaged in pleasurable activities. The patient was very confused about many of the questions posed to her.) Assessment/Plan The patient demonstrated limited awareness of her conditions, understanding of questions posed to her and ability to perform basic arithmetic as well as recall of three simple words. The patient indicated that she experiences auditory hallucinations but they are not command hallucinations. A Brain MRI is recommended to ascertain if a lesion can account for her altered mental state. It is recommended that she receive a neuropsychological assessment if she is transferred to a rehabilitation facility. The patient is incapable of making decisions for herself at this time. The patient will be seen again while she remains in this facility.
[2017-05-20 09:36] LABS: ANION GAP 9 (8-16); CALCIUM 8.5 mg/dL (8.5-10.1); CO2 26 mmol/L (21-32); CREATININE 0.6 mg/dL (0.55-1.02); GLUCOSE,RANDOM 112 mg/dL (74-106)
[2017-05-20] MEDS: ENOXAPARIN NA (PORCINE) 40 MG/0.4 ML DISP.SYRIN SQ SCH (09:43)
--- NOTE | 2017-05-20 10:39 | PN ---
Progress Note (short form) - Note Progress Note: Neurology History of Present Illness The patient is a 71 year old female, with reportedly no significant past medical history who presented to the emergency department reportedly accompanied by family members with signs of altered mental status for an unknown period of time. As per sister who arrived to the patients home from [place] n day of admission, the patient was found to be increasingly confused and with multiple lesions to the head, feet, and other extremities. Sister reports patient was able to recognize her and open the door. Family reports the patient lives at home with her brother. As per brother, patient visited her father at the hospital 1 week ago, and since then she has not wanted to leave the house, has been pulling her hair out, missing meals, and not bathing. Family states patient has been under a lot of stress over the past 6 months, as she has been hypervigilant over her father who has been at a [place] [facility] facility. The patient's brother reported she has had multiple episodes of urinary incontinence and she has complained of dysuria. Patient states the words are not making sense. the patient was admitted for further evaluation and management. She completed a noncontrast head CT which did not show any acute changes. During my evaluation, she was minimally verbal but more alert and cooperative today. Seen by neuropsychologist who deemed patient does not have capacity. Also noted auditory hallucinations. Unclear if recent stressors may have but will evaluate for any organic etiology and planning for MRI brain today. Active Medications Enoxaparin Sodium (Lovenox -) 40 mg SQ DAILY [facility] Last Admin: 05/20/17 09:43 Dose: 40 mg Dextrose/Sodium Chloride (D5-1/2ns -) 1,000 mls @ 75 mls/hr IV ASDIR [facility] Last Admin: 05/20/17 01:54 Dose: 75 mls/hr Olanzapine (Zyprexa -) 5 mg PO HS [facility] Last Admin: 05/19/17 22:31 Dose: Not Given *Physical Exam Vital Signs Period Temp Pulse Resp BP Sys/Garrido Pulse Ox Last 24 Hr 97.9 F-98.5 F 75-80 18-20 114-134/72-80 98 CONSTITUTIONAL: Awake and alert; confused, disheveled, in no apparent distress HEAD: Normocephalic; atraumatic; + numerous excoriated circular lesions to the scalp; EYES: PERRL; EOM intact; no photophobia ENMT: External appears normal; mm-dry NECK: Supple; non-tender; no cervical lymphadenopathy; CARD: Normal S1, S2; no murmurs, rubs, or gallops RESP: Normal chest excursion with respiration; breath sounds clear and equal bilaterally; no wheezes, rhonchi, or rales ABD: Soft, non-distended; non-tender; no palpable organomegaly, no palpable hernias EXT: Normal ROM in all four extremities; non-tender to palpation; distal pulses intact SKIN: Warm, dry, + numerous circular (approximately 0.5 cm in diameter), excoriated lesions to upper chest, upper and mid back and lower extremities; NEURO: Patient oriented to self and place only; confused to date; uncooperative , moving all extremities symmetrically, gait-deferred; CBCD WBC 8.4 K/mm3 (4.0-10.0) 05/18/17 07:00 RBC 4.68 M/mm3 (3.60-5.2) 05/18/17 07:00 Hgb 13.8 GM/dL (10.7-15.3) 05/18/17 07:00 Hct 40.9 % (32.4-45.2) 05/18/17 07:00 MCV 87.4 fl (80-96) 05/18/17 07:00 MCHC 33.7 g/dl (32.0-36.0) 05/18/17 07:00 RDW 14.4 % (11.6-15.6) 05/18/17 07:00 Plt Count 153 K/MM3 (134-434) D 05/18/17 07:00 MPV 11.5 fl (7.5-11.1) H D 05/18/17 07:00 CMP Sodium 141 mmol/L (136-145) 05/20/17 08:10 Potassium 3.6 mmol/L (3.5-5.1) 05/20/17 08:10 Chloride 106 mmol/L (98-107) 05/20/17 08:10 Carbon Dioxide 26 mmol/L (21-32) 05/20/17 08:10 Anion Gap 9 (8-16) 05/20/17 08:10 BUN 11 mg/dL (7-18) 05/20/17 08:10 Creatinine 0.6 mg/dL (0.55-1.02) 05/20/17 08:10 Creat Clearance w eGFR > 60 (>60) 05/18/17 07:00 Calcium 8.5 mg/dL (8.5-10.1) 05/20/17 08:10 Total Bilirubin 1.5 mg/dL (0.2-1.0) H D 05/18/17 07:00 AST 66 U/L (15-37) H D 05/18/17 07:00 ALT 83 U/L (12-78) H D 05/18/17 07:00 Alkaline Phosphatase 77 U/L (45-117) 05/18/17 07:00 Total Protein 6.3 g/dl (6.4-8.2) L 05/18/17 07:00 Albumin 3.2 g/dl (3.4-5.0) L 05/18/17 07:00 - RADIOLOGY EXAM: CXR IMPRESSION: No acute pathology. EXAM: Head CT INTERPRETED BY: Dr. Valiente IMPRESSION: There is no evidence of acute infarction. There is no hemorrhage. If symptoms persist or worsen, consider follow brain MRI. Medical Decision Making 71 year old female, with reportedly no significant past medical history who presented to the emergency department reportedly accompanied by family members with signs of altered mental status for an unknown period of time. She completed a noncontrast head CT which did not show any acute changes. She was seen by psychiatry and has been put on medication. Follow up Psych recommendation, likely to be etiology of her condition Has been put on Zyprexa Neuropsych note reviewed as well Deemed not to have decision making capacity Unclear if recent stressors may have but will evaluate for any organic etiology. MRI brain ordered Monitor labs/lytes Check for possible sources of infection Hypernatremia has improved Increased PO and IV hydration Reorientation as much as able
--- NOTE | 2017-05-20 10:44 | PN ---
Physical Exam: SUBJECTIVE: Patient seen and examined. She was off claudia vest last night without trouble. She refused Zyprexa again last night. Has no complaints currently. OBJECTIVE: Vital Signs Period Temp Pulse Resp BP Sys/Garrido Pulse Ox Last 24 Hr 97.9 F-98.5 F 75-80 18-20 114-134/72-80 98 GEN: Awake, alert, oriented to person, place, month, not to year. Memory intact , but seems internally preoccupied, endorses auditory hallucinations HEENT: PERRLA, EOMi CV: S1, S2, RRR LUNG: CTABL ABD: Soft, NT, ND, normoactive BS MSK: Scattered excoriations along body NEURO: Difficult to assess, patient is still tangential in thoughts Laboratory Results - last 24 hr 05/19/17 05/19/17 05/20/17 10:40 20:31 08:10 Sodium 143 141 Potassium 4.2 3.6 Chloride 107 106 Carbon Dioxide 29 26 Anion Gap 7 L 9 BUN 13 D 11 Creatinine 0.7 0.6 POC Glucometer 94 Random Glucose 121 H 112 H Calcium 8.7 8.5 Active Medications Generic Name Dose Route Start Last Admin Trade Name Freq PRN Reason Stop Dose Admin Enoxaparin Sodium 40 mg 05/18/17 10:00 05/20/17 09:43 Lovenox - SQ 40 mg DAILY MOJGAN Administration Dextrose/Sodium Chloride 1,000 mls @ 75 mls/hr 05/18/17 16:30 05/20/17 01:54 D5-1/2ns - IV 75 mls/hr ASDIR MOJGAN Administration Olanzapine 5 mg 05/18/17 22:00 05/19/17 22:31 Zyprexa - PO Not Given HS MOJGAN ASSESSMENT/PLAN: Ms Ramey is a 71yo F with no significant PMHx, no psychiatric history, who was brought to the ER by her sister due to gradual onset AMS after poor PO intake. Found to have significant hypernatremia of 155. # Acute on Chronic Encephalopathy - metabolic w/u negative, likely underlying psychiatric condition exacerbated by recent stressors - Na+ corrected, on D5-1/2NS, still confused, likely underlying psychiatric condition, MRI negative - Would like to d/c home with VNS, but need psychiatry clearance first, if unsafe will find other d/c plan - [place] vest d/c'd for now - Encourage night-time Zyprexa # Hypokalemia - resolved # FEN - D5 1/2NS @ 75cc/hr, diabetic diet # PPx - Heparin SQ TID, PT ordered # Dispo - If psych clears her, she can be discharged home tmrw with VNS. Agapito Matt MD - Internal Medicine Visit type - Emergency Visit Emergency Visit: No - New Patient This patient is new to me today: No - Critical Care Critical Care patient: No - Discharge Referral Referred to [facility] Med P.C.: No
[2017-05-20] MEDS ORDERED: LORazepam 2 MG/ML SDV VIAL IVPUSH ONE (14:45)
--- NOTE | 2017-05-20 18:06 | PN ---
Teaching Attending Note Name of Resident: Agapito Matt ATTENDING PHYSICIAN STATEMENT I saw and evaluated the patient. I reviewed the resident's note and discussed the case with the resident. I agree with the resident's findings and plan as documented. SUBJECTIVE:asymptomatic. states that she has not heard the man's voice while she has been in the hospital. but was giving her commands which was very stressful because she was unable to carry out everything that she told her. she stopped eating because "its a sign you have money and then people will steal from you". also was told she had to live on [address] because she was a felon and not allowed to sleep in her house anymore. As per RN she claims she was hearing voices earlier in the day. OBJECTIVE: Last Vital Signs Temp Pulse Resp BP Pulse Ox 98.4 F 84 20 120/54 95 05/20/17 17:16 05/20/17 17:16 05/20/17 17:16 05/20/17 17:16 05/20/17 09:00 General paranoid, flight of ideas CV S1 S2 RRR no murmur/rub/gallop Lungs CTA B/L no wheezing/rales/rhonchi ASSESSMENT AND PLAN: 71 yo F with no significant medical history who presented to the ER with confusion and poor oral intake. 1. Encephalopathy with paranoia- remains paranoid. MRI done which is negative for acute pathology. concerning with ongoing hallucinations if pt is a threat to herself or others. will need to discuss with psych to confirm does not need inpatient psych placement vs [facility] placement. appears brother declined truck terminal manager placmeent at this time. pt will need more close monitoring. unclear if brother will be able to provide this. on zyprexa. 2. Hypernatremia-due to poor oral intake. resolved. d/c ivf 3. Hypokalemia- Improved 4, leukocytosis- likely reactive. no signs of infection. resolved 5. DVT ppx- lovenox 6. pt is medically optimized to leave acute care setting. however concern about placement. will need to d/w psych about dispo
[2017-05-20] MEDS: OLANZapine 5 MG TABLET PO SCH (21:22)
[2017-05-21] MEDS ORDERED: PT OWN MED DRAWER 7, Y5N ONE (06:56)
--- NOTE | 2017-05-21 08:33 | PN ---
Physical Exam: SUBJECTIVE: Patient seen and examined OBJECTIVE: Vital Signs Period Temp Pulse Resp BP Sys/Garrido Pulse Ox Last 24 Hr 96.7 F-98.4 F 67-86 18-20 107-120/54-76 95-96 GENERAL: The patient is awake, alert, and fully oriented, in no acute distress. HEAD: Normal with no signs of trauma. EYES: PERRL, extraocular movements intact, sclera anicteric, conjunctiva clear. No ptosis. ENT: Ears normal, nares patent, oropharynx clear without exudates, moist mucous membranes. NECK: Trachea midline, full range of motion, supple. LUNGS: Breath sounds equal, clear to auscultation bilaterally, no wheezes, no crackles, no accessory muscle use. HEART: Regular rate and rhythm, S1, S2 without murmur, rub or gallop. ABDOMEN: Soft, nontender, nondistended, normoactive bowel sounds, no guarding, no rebound, no hepatosplenomegaly, no masses. EXTREMITIES: 2+ pulses, warm, well-perfused, no edema. NEUROLOGICAL: Cranial nerves II through XII grossly intact. Normal speech, gait not observed. PSYCH: Normal mood, normal affect. SKIN: Warm, dry, normal turgor, no rashes or lesions noted Laboratory Results - last 24 hr 05/20/17 08:10 Sodium 141 Potassium 3.6 Chloride 106 Carbon Dioxide 26 Anion Gap 9 BUN 11 Creatinine 0.6 Random Glucose 112 H Calcium 8.5 Active Medications Generic Name Dose Route Start Last Admin Trade Name Freq PRN Reason Stop Dose Admin Enoxaparin Sodium 40 mg 05/18/17 10:00 05/20/17 09:43 Lovenox - SQ 40 mg DAILY MOJGAN Administration Olanzapine 5 mg 05/18/17 22:00 05/20/17 21:22 Zyprexa - PO 5 mg HS MOJGAN Administration ASSESSMENT/PLAN: Ms Ramey is a 71yo F with no significant PMHx, no psychiatric history, who was brought to the ER by her sister due to gradual onset AMS after poor PO intake. Found to have significant hypernatremia of 155. # Acute on Chronic Encephalopathy - metabolic w/u negative, likely underlying psychiatric condition exacerbated by recent stressors - Na+ corrected, on D5-1/2NS, still confused, likely underlying psychiatric condition, MRI negative - Would like to d/c home with VNS, but need psychiatry clearance first, if unsafe will find other d/c plan - [facility] d/c'd for now # Hypokalemia - resolved # FEN - D5 1/2NS @ 75cc/hr, diabetic diet # PPx - Heparin SQ TID, PT ordered # Dispo - If psych clears her, she can be discharged home today with VNS. Agapito Matt MD - Internal Medicine
[2017-05-21 08:47] LABS: ANION GAP 10 (8-16); CALCIUM 8.7 mg/dL (8.5-10.1); CO2 28 mmol/L (21-32); CREATININE 0.8 mg/dL (0.55-1.02); GLUCOSE,RANDOM 123 mg/dL (74-106)
[2017-05-21] MEDS: ENOXAPARIN NA (PORCINE) 40 MG/0.4 ML DISP.SYRIN SQ SCH (09:34)
--- NOTE | 2017-05-21 09:44 | PN ---
Progress Note (short form) - Note Progress Note: Neurology History of Present Illness The patient is a 71 year old female, with reportedly no significant past medical history who presented to the emergency department reportedly accompanied by family members with signs of altered mental status for an unknown period of time. As per sister who arrived to the patients home from [place] n day of admission, the patient was found to be increasingly confused and with multiple lesions to the head, feet, and other extremities. Sister reports patient was able to recognize her and open the door. Family reports the patient lives at home with her brother. As per brother, patient visited her father at the hospital 1 week ago, and since then she has not wanted to leave the house, has been pulling her hair out, missing meals, and not bathing. Family states patient has been under a lot of stress over the past 6 months, as she has been hypervigilant over her father who has been at a care home facility. The patient's brother reported she has had multiple episodes of urinary incontinence and she has complained of dysuria. Patient states the words are not making sense. the patient was admitted for further evaluation and management. She completed a noncontrast head CT which did not show any acute changes. During my evaluation, she was minimally verbal but more alert and cooperative today. Seen by neuropsychologist who deemed patient does not have capacity. Also noted auditory hallucinations. Unclear if recent stressors may have but will evaluate for any organic etiology and MRI brain completed and reviewed in detail. The patient was more awake and alert and interactive today, writing letter but still seems to be having hallucinations of a "man that expects her to pay" and states she does not have the money. Active Medications Enoxaparin Sodium (Lovenox -) 40 mg SQ DAILY [facility] Last Admin: 05/21/17 09:34 Dose: 40 mg Olanzapine (Zyprexa -) 5 mg PO HS [facility] Last Admin: 05/20/17 21:22 Dose: 5 mg *Physical Exam Vital Signs Period Temp Pulse Resp BP Sys/Garrido Pulse Ox Last 24 Hr 97.9 F-98.5 F 75-80 18-20 114-134/72-80 98 CONSTITUTIONAL: Awake and alert; confused, disheveled, in no apparent distress HEAD: Normocephalic; atraumatic; + numerous excoriated circular lesions to the scalp; EYES: PERRL; EOM intact; no photophobia ENMT: External appears normal; mm-dry NECK: Supple; non-tender; no cervical lymphadenopathy; CARD: Normal S1, S2; no murmurs, rubs, or gallops RESP: Normal chest excursion with respiration; breath sounds clear and equal bilaterally; no wheezes, rhonchi, or rales ABD: Soft, non-distended; non-tender; no palpable organomegaly, no palpable hernias EXT: Normal ROM in all four extremities; non-tender to palpation; distal pulses intact SKIN: Warm, dry, + numerous circular (approximately 0.5 cm in diameter), excoriated lesions to upper chest, upper and mid back and lower extremities; NEURO: Patient oriented to self and place only; confused to date; uncooperative , moving all extremities symmetrically, gait-deferred; CBCD WBC 8.4 K/mm3 (4.0-10.0) 05/18/17 07:00 RBC 4.68 M/mm3 (3.60-5.2) 05/18/17 07:00 Hgb 13.8 GM/dL (10.7-15.3) 05/18/17 07:00 Hct 40.9 % (32.4-45.2) 05/18/17 07:00 MCV 87.4 fl (80-96) 05/18/17 07:00 MCHC 33.7 g/dl (32.0-36.0) 05/18/17 07:00 RDW 14.4 % (11.6-15.6) 05/18/17 07:00 Plt Count 153 K/MM3 (134-434) D 05/18/17 07:00 MPV 11.5 fl (7.5-11.1) H D 05/18/17 07:00 CMP Sodium 142 mmol/L (136-145) 05/21/17 06:30 Potassium 3.2 mmol/L (3.5-5.1) L 05/21/17 06:30 Chloride 104 mmol/L (98-107) 05/21/17 06:30 Carbon Dioxide 28 mmol/L (21-32) 05/21/17 06:30 Anion Gap 10 (8-16) 05/21/17 06:30 BUN 26 mg/dL (7-18) H D 05/21/17 06:30 Creatinine 0.8 mg/dL (0.55-1.02) D 05/21/17 06:30 Creat Clearance w eGFR > 60 (>60) 05/18/17 07:00 Calcium 8.7 mg/dL (8.5-10.1) 05/21/17 06:30 Total Bilirubin 1.5 mg/dL (0.2-1.0) H D 05/18/17 07:00 AST 66 U/L (15-37) H D 05/18/17 07:00 ALT 83 U/L (12-78) H D 05/18/17 07:00 Alkaline Phosphatase 77 U/L (45-117) 05/18/17 07:00 Total Protein 6.3 g/dl (6.4-8.2) L 05/18/17 07:00 Albumin 3.2 g/dl (3.4-5.0) L 05/18/17 07:00 - RADIOLOGY EXAM: CXR IMPRESSION: No acute pathology. EXAM: Head CT INTERPRETED BY: Dr. Valiente IMPRESSION: There is no evidence of acute infarction. There is no hemorrhage. If symptoms persist or worsen, consider follow brain MRI. Medical Decision Making 71 year old female, with reportedly no significant past medical history who presented to the emergency department reportedly accompanied by family members with signs of altered mental status for an unknown period of time. She completed a noncontrast head CT which did not show any acute changes. She was seen by psychiatry and has been put on medication. Follow up Psych recommendation, likely to be etiology of her condition Has been put on Zyprexa Neuropsych note reviewed as well Deemed not to have decision making capacity Unclear if recent stressors may have been significant contributer She is more interactive and conversive but not at baseline MRI brain reviewed in detail and with age related changes but no acute abnormalities Hypernatremia has improved Increased PO and IV hydration Reorientation as much as able
--- NOTE | 2017-05-21 11:40 | PN ---
Physical Exam: SUBJECTIVE: Patient seen and examined. Alert, talking more this AM. States a man is talking to her and asking her to bring all of her family to him and to pay him money. The voice does not directly tell her to harm other people, but may be hinting at it. Will ask psych to re-evaluate. OBJECTIVE: Vital Signs Period Temp Pulse Resp BP Sys/Garrido Pulse Ox Last 24 Hr 96.7 F-98.4 F 80-86 20-20 107-120/54-76 96 GEN: Awake, alert, oriented to person, place, month, not to year. Memory intact , but seems internally preoccupied, endorses auditory hallucinations HEENT: PERRLA, EOMi CV: S1, S2, RRR LUNG: CTABL ABD: Soft, NT, ND, normoactive BS MSK: Scattered excoriations along body NEURO: Difficult to assess, patient is still tangential in thoughts Laboratory Results - last 24 hr 05/21/17 06:30 Sodium 142 Potassium 3.2 L Chloride 104 Carbon Dioxide 28 Anion Gap 10 BUN 26 H D Creatinine 0.8 D Random Glucose 123 H Calcium 8.7 Active Medications Generic Name Dose Route Start Last Admin Trade Name Freq PRN Reason Stop Dose Admin Enoxaparin Sodium 40 mg 05/18/17 10:00 05/21/17 09:34 Lovenox - SQ 40 mg DAILY MOJGAN Administration Olanzapine 5 mg 05/18/17 22:00 05/20/17 21:22 Zyprexa - PO 5 mg HS MOJGAN Administration ASSESSMENT/PLAN: Ms Ramey is a 71yo F with no significant PMHx, no psychiatric history, who was brought to the ER by her sister due to gradual onset AMS after poor PO intake. Found to have significant hypernatremia of 155. # Acute on Chronic Encephalopathy - metabolic w/u negative, likely underlying psychiatric condition exacerbated by recent stressors - Na+ corrected, on D5-1/2NS, still confused, likely underlying psychiatric condition, MRI negative, on PM zyprexa - At this time, the pt is having auditory hallucinations possible hinting of harming others, unsure if d/c home is safe at this pt, will ask Dr. Blackman to re-evaluate, if unsafe will transfer to inpatient psych facility, if safe will d /c home w/ VNS # Hypokalemia - will replete w/ 20meq PO # FEN - D5 1/2NS @ 75cc/hr, diabetic diet # PPx - Heparin SQ TID, PT ordered # Dispo - As per psych, d/c to inpatient psych facility vs home w/ VNS Agapito Matt MD - Internal Medicine Visit type - Emergency Visit Emergency Visit: No - New Patient This patient is new to me today: No - Critical Care Critical Care patient: No - Discharge Referral Referred to [facility] Med P.C.: No
[2017-05-21] MEDS ORDERED: POTASSIUM CHLORIDE TABS 20 MEQ TABLET.ER (FP) PO ONE (11:45)
--- NOTE | 2017-05-21 12:18 | PN ---
Progress Note (short form) - Note Progress Note: Psych follow up: atient seen for psych re evaluation. She continues to display severe Depressive mood with hallucinations and delusional thinking. keep talking and writing about and great devastations that are happening the world. preoccupied with of her Father. she took care of him for some time. Claims he was a Felon. Appears to taljk a lot about and bad things in the world. Cognition essentially intact. 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 Rec: Needs in patient psych Hospitalization.
--- NOTE | 2017-05-21 14:39 | PN ---
Teaching Attending Note Name of Resident: Agapito Matt ATTENDING PHYSICIAN STATEMENT I saw and evaluated the patient. I reviewed the resident's note and discussed the case with the resident. I agree with the resident's findings and plan as documented. SUBJECTIVE:asymptomatic. admits to hearing voices and being told commands. scared that his ultimate plan is that she may have to hurt someone in order to appease the voice in her head. that he has not given the direct demand to do so but believes that's what he wants to rectify the evil things her family has done in the past. expresses concern of finding her fathers body. denies Cp, SOB , fever, chills, N/V/C/D, OBJECTIVE: Last Vital Signs Temp Pulse Resp BP Pulse Ox 98.1 F 97 H 18 104/62 97 05/21/17 10:00 05/21/17 10:00 05/21/17 10:00 05/21/17 10:00 05/21/17 09:00 General paranoid, flight of ideas ASSESSMENT AND PLAN: 71 yo F with no significant medical history who presented to the ER with confusion and poor oral intake. 1. Encephalopathy with paranoia- remains paranoid. MRI done which is negative for acute pathology. concern that she is threat to others due to auditory hallucinations. will request psych to come back to re-evaluate. d/w this with brother present at bedside whom she lives with. states that he was unaware that the voices were giving her commands but knew that she was hearing a voice. states her symptoms appeared several months ago once their father went to a [facility]. on zyprexa. 2. Hypernatremia-due to poor oral intake. resolved. 3. Hypokalemia- Improved 4, leukocytosis- likely reactive. no signs of infection. resolved 5. DVT ppx- lovenox 6. believe this pt may require involuntary commitment to psychiatric center. will d/w psychiatry as she is pre-occupied with and goal to appease her hallucinations. discussed plan with brother who agrees with plan. on questions answered.
--- NOTE | 2017-05-21 17:06 | EKG ---
Test Reason : Blood Pressure : / mmHG Vent. Rate : 077 BPM Atrial Rate : 077 BPM P-R Int : 174 ms QRS Dur : 096 ms QT Int : 370 ms P-R-T Axes : 046 034 019 degrees QTc Int : 418 ms NORMAL SINUS RHYTHM MINIMAL VOLTAGE CRITERIA FOR LVH, MAY BE NORMAL VARIANT BORDERLINE ECG WHEN COMPARED WITH ECG OF 16-MAY-2017 18:11, NO SIGNIFICANT CHANGE WAS FOUND Confirmed by JYOTI RUBY, AMEE ([id number]) on 05/21/2017 5:06:16 PM Referred By: ODALIS RAJPUT Confirmed By:AMEE MONTES MD
[2017-05-21] MEDS: OLANZapine 5 MG TABLET PO SCH (21:26)
--- NOTE | 2017-05-22 06:35 | PN ---
Physical Exam: SUBJECTIVE: Patient seen and examined this AM. States she is . No further complaints. Has written letters to the [facility] speaking of OBJECTIVE: Vital Signs Period Temp Pulse Resp BP Sys/Garrido Pulse Ox Last 24 Hr 98 F-98.5 F 80-98 18-20 104-121/60-68 97-97 GEN: Awake, alert, oriented to person, place, month, not to year. Believes she is . HEENT: PERRLA, EOMi CV: S1, S2, RRR LUNG: CTABL ABD: Soft, NT, ND, normoactive BS MSK: Scattered excoriations along body NEURO: Difficult to assess, patient is still tangential in thoughts Laboratory Results - last 24 hr 05/21/17 06:30 Sodium 142 Potassium 3.2 L Chloride 104 Carbon Dioxide 28 Anion Gap 10 BUN 26 H D Creatinine 0.8 D Random Glucose 123 H Calcium 8.7 Active Medications Generic Name Dose Route Start Last Admin Trade Name Freq PRN Reason Stop Dose Admin Enoxaparin Sodium 40 mg 05/18/17 10:00 05/21/17 09:34 Lovenox - SQ 40 mg DAILY [facility] Administration Olanzapine 5 mg 05/18/17 22:00 05/21/17 21:26 Zyprexa - PO 5 mg HS [facility] Administration ASSESSMENT/PLAN: Ms Ramey is a 71yo F with no significant PMHx, no psychiatric history, who was brought to the ER by her sister due to gradual onset AMS after poor PO intake. Found to have significant hypernatremia of 155. # Acute on Chronic Encephalopathy - metabolic w/u negative, likely underlying psychiatric condition exacerbated by recent stressors - Likely underlying psychiatric condition, MRI negative, Na+ corrected, on PM zyprexa - Pt will be transferred to inpatient psych involuntarily, papers signed, 1:1 , awaiting bed, Jez in agreement # Hypokalemia - will replete PRN, Mg level tmrw # Transaminitis - no abd pain, possible rare sfx of zyprexa, will monitor tmrw # FEN - D5 1/2NS @ 75cc/hr, diabetic diet # PPx - Heparin SQ TID, PT ordered # Dispo - As per psych, d/c to inpatient psych facility, awaiting bed Agapito Matt MD - Internal Medicine Visit type - Emergency Visit Emergency Visit: No - New Patient This patient is new to me today: No - Critical Care Critical Care patient: No - Discharge Referral Referred to [facility] Med P.C.: No
[2017-05-22 08:50] LABS: ANION GAP 7 (8-16); CALCIUM 8.7 mg/dL (8.5-10.1); CO2 30 mmol/L (21-32); GLUCOSE,RANDOM 85 mg/dL (74-106)
[2017-05-22 08:51] LABS: CREATININE 0.5 mg/dL (0.55-1.02)
--- NOTE | 2017-05-22 09:28 | PN ---
Progress Note (short form) - Note Progress Note: Neurology History of Present Illness The patient is a 71 year old female, with reportedly no significant past medical history who presented to the emergency department reportedly accompanied by family members with signs of altered mental status for an unknown period of time. As per sister who arrived to the patients home from [place] n day of admission, the patient was found to be increasingly confused and with multiple lesions to the head, feet, and other extremities. Sister reports patient was able to recognize her and open the door. Family reports the patient lives at home with her brother. As per brother, patient visited her father at the hospital 1 week ago, and since then she has not wanted to leave the house, has been pulling her hair out, missing meals, and not bathing. Family states patient has been under a lot of stress over the past 6 months, as she has been hypervigilant over her father who has been at a [facility] facility. The patient's brother reported she has had multiple episodes of urinary incontinence and she has complained of dysuria. Patient states the words are not making sense. the patient was admitted for further evaluation and management. She completed a noncontrast head CT which did not show any acute changes. During my evaluation, she was minimally verbal but more alert and cooperative today. Seen by neuropsychologist who deemed patient does not have capacity. Also noted auditory hallucinations. Unclear if recent stressors may have but will evaluate for any organic etiology and MRI brain completed and reviewed in detail. The patient was more awake and alert and interactive. Seen again by psych and having hallucinations and depression per note. Plan is for inpatient psych admission given her ongoing symtoms and concern for safety. Active Medications Generic Name Dose Route Start Last Admin Trade Name Lina PRN Reason Stop Dose Admin Enoxaparin Sodium 40 mg 05/18/17 10:00 05/21/17 09:34 Lovenox - SQ 40 mg DAILY [facility] Administration Olanzapine 5 mg 05/18/17 22:00 05/21/17 21:26 Zyprexa - PO 5 mg HS MOJGAN Administration *Physical Exam Vital Signs Temperature 98.0 F 05/21/17 22:00 Pulse Rate 84 05/21/17 22:00 Respiratory Rate 18 05/21/17 22:00 Blood Pressure 120/60 05/21/17 22:00 O2 Sat by Pulse Oximetry (%) 97 05/21/17 21:00 CONSTITUTIONAL: Awake and alert; confused, disheveled, in no apparent distress HEAD: Normocephalic; atraumatic; + numerous excoriated circular lesions to the scalp; EYES: PERRL; EOM intact; no photophobia ENMT: External appears normal; mm-dry NECK: Supple; non-tender; no cervical lymphadenopathy; CARD: Normal S1, S2; no murmurs, rubs, or gallops RESP: Normal chest excursion with respiration; breath sounds clear and equal bilaterally; no wheezes, rhonchi, or rales ABD: Soft, non-distended; non-tender; no palpable organomegaly, no palpable hernias EXT: Normal ROM in all four extremities; non-tender to palpation; distal pulses intact SKIN: Warm, dry, + numerous circular (approximately 0.5 cm in diameter), excoriated lesions to upper chest, upper and mid back and lower extremities; NEURO: Patient oriented to self and place only; confused to date; uncooperative , moving all extremities symmetrically, gait-deferred; CBCD WBC 8.4 K/mm3 (4.0-10.0) 05/18/17 07:00 RBC 4.68 M/mm3 (3.60-5.2) 05/18/17 07:00 Hgb 13.8 GM/dL (10.7-15.3) 05/18/17 07:00 Hct 40.9 % (32.4-45.2) 05/18/17 07:00 MCV 87.4 fl (80-96) 05/18/17 07:00 MCHC 33.7 g/dl (32.0-36.0) 05/18/17 07:00 RDW 14.4 % (11.6-15.6) 05/18/17 07:00 Plt Count 153 K/MM3 (134-434) D 05/18/17 07:00 MPV 11.5 fl (7.5-11.1) H D 05/18/17 07:00 CMP Sodium 141 mmol/L (136-145) 05/22/17 07:00 Potassium 3.3 mmol/L (3.5-5.1) L 05/22/17 07:00 Chloride 104 mmol/L (98-107) 05/22/17 07:00 Carbon Dioxide 30 mmol/L (21-32) 05/22/17 07:00 Anion Gap 7 (8-16) L 05/22/17 07:00 BUN 23 mg/dL (7-18) H 05/22/17 07:00 Creatinine 0.5 mg/dL (0.55-1.02) L D 05/22/17 07:00 Creat Clearance w eGFR > 60 (>60) 05/18/17 07:00 Calcium 8.7 mg/dL (8.5-10.1) 05/22/17 07:00 Total Bilirubin 1.5 mg/dL (0.2-1.0) H D 05/18/17 07:00 AST 66 U/L (15-37) H D 05/18/17 07:00 ALT 83 U/L (12-78) H D 05/18/17 07:00 Alkaline Phosphatase 77 U/L (45-117) 05/18/17 07:00 Total Protein 6.3 g/dl (6.4-8.2) L 05/18/17 07:00 Albumin 3.2 g/dl (3.4-5.0) L 05/18/17 07:00 - RADIOLOGY EXAM: CXR IMPRESSION: No acute pathology. EXAM: Head CT INTERPRETED BY: Dr. Valiente IMPRESSION: There is no evidence of acute infarction. There is no hemorrhage. If symptoms persist or worsen, consider follow brain MRI. Medical Decision Making 71 year old female, with reportedly no significant past medical history who presented to the emergency department reportedly accompanied by family members with signs of altered mental status for an unknown period of time. She completed a noncontrast head CT which did not show any acute changes. She was seen by psychiatry and has been put on medication. Psych note reviewed, depression with hallucinations Has been put on Zyprexa Neuropsych note reviewed Deemed not to have decision making capacity Unclear if recent stressors may have been significant contributer MRI brain reviewed in detail and with age related changes but no acute abnormalities Hypernatremia has improved Increased PO and IV hydration Plan for inpatient psych admission
[2017-05-22] MEDS: ENOXAPARIN NA (PORCINE) 40 MG/0.4 ML DISP.SYRIN SQ SCH (09:46)
--- NOTE | 2017-05-22 09:49 | EKG ---
Test Reason : Blood Pressure : / mmHG Vent. Rate : 094 BPM Atrial Rate : 094 BPM P-R Int : 132 ms QRS Dur : 088 ms QT Int : 362 ms P-R-T Axes : 060 021 014 degrees QTc Int : 452 ms NORMAL SINUS RHYTHM POSSIBLE LEFT ATRIAL ENLARGEMENT NONSPECIFIC ST ABNORMALITY ABNORMAL ECG NO PREVIOUS ECGS AVAILABLE Confirmed by EPHRAIM GALLEGOS MD ([id number]) on 05/22/2017 9:49:10 AM Referred By: Confirmed By:EPRHAIM GALLEGOS MD
--- NOTE | 2017-05-22 12:49 | PN ---
Teaching Attending Note Name of Resident: Agapito Matt ATTENDING PHYSICIAN STATEMENT I saw and evaluated the patient. I reviewed the resident's note and discussed the case with the resident. I agree with the resident's findings and plan as documented. SUBJECTIVE:asymptomatic. denies CP, SOB< fever, chills, N/V/C?D OBJECTIVE: Last Vital Signs Temp Pulse Resp BP Pulse Ox 98.2 F 82 18 140/56 98 05/22/17 10:00 05/22/17 10:00 05/22/17 10:00 05/22/17 10:00 05/22/17 09:00 General resting comfortable. less talkative today, responsive and states she tired ASSESSMENT AND PLAN: 71 yo F with no significant medical history who presented to the ER with confusion and poor oral intake. 1. Encephalopathy with paranoia- remains paranoid. workup negative. pt poses risk to others due to hallucinations and commands. needs 1:1 observation. 2 PC committed. awaiting bed availability at [facility] psych. on zyprexa. 2. Hypernatremia-due to poor oral intake. resolved. 3. Hypokalemia- Improved 4, leukocytosis- likely reactive. no signs of infection. resolved 5. DVT ppx- lovenox
[2017-05-22] MEDS ORDERED: POTASSIUM CHLORIDE TABS 20 MEQ TABLET.ER (FP) PO ONE (13:30)
[2017-05-22 13:51] LABS: BASOPHIL 0.9 % (0-2.0); EOSINOPHIL 2.8 % (0-4.5); MCH 28.8 pg (25.7-33.7); MCHC 32.8 g/dl (32.0-36.0); NEUTROPHILS 45.6 % (42.8-82.8); PLATELET COUNT 149 K/MM3 (134-434); RDW 14.4 % (11.6-15.6); WHITE BLOOD COUNT 7.3 K/mm3 (4.0-10.0)
[2017-05-22 13:54] LABS: ALBUMIN 2.8 g/dl (3.4-5.0); ALK PHOS 118 U/L (45-117); BILIRUBIN,DIRECT 0.2 mg/dL (0.0-0.2); BILIRUBIN,TOTAL 0.6 mg/dL (0.2-1.0); SGOT/AST 116 U/L (15-37); SGPT/ALT 225 U/L (12-78); TOT PROT 5.7 g/dl (6.4-8.2)
--- NOTE | 2017-05-22 15:12 | PN ---
Progress Note (short form) - Note Progress Note: Pt. was euthymic today. Her immediate memory was 3/3 but her short term memory was 2/3. She appeared to be alert and attentive to our conversation but she was not aware of the day of the week. She also appeared to be confused at times stating that there was a man in her room and other times referring to patients in neighboring rooms. The patient stated several times that we were going to kill her. In addition, she apparently told another doctor that there was a voice in her head stating that she should take her life. Her brother met with me and shared more history about her past. The patient had fallen a few years ago on the posterior region of her head. She was said not to have suffered a concussion and did not black out. She also experienced the loss of her boyfriend a few years ago. According to her brother that may have been the cause of the onset of her mental deterioration. We discussed the possibility of him bringing in a picture of her boyfriend to see if that might help her work through feelings of loss. In any case, her delusions of persecution, suicidal ideation and auditory hallucinations are indications for treatment at a psychiatric inpatient facility. Her brother and this psychologist will meet with the patient next week to continue to see if we can help her.
[2017-05-22] MEDS ORDERED: PT OWN MED DRAWER 7, Y5N ONE (21:27)
[2017-05-22] MEDS: OLANZapine 5 MG TABLET PO SCH (22:10)
[2017-05-23 08:54] LABS: ALBUMIN 2.9 g/dl (3.4-5.0); ALK PHOS 124 U/L (45-117); ANION GAP 7 (8-16); BILIRUBIN,TOTAL 0.7 mg/dL (0.2-1.0); CALCIUM 8.9 mg/dL (8.5-10.1); CO2 29 mmol/L (21-32); CREATININE 0.6 mg/dL (0.55-1.02); GLUCOSE,RANDOM 88 mg/dL (74-106); MAGNESIUM 2.1 mg/dL (1.8-2.4); SGOT/AST 128 U/L (15-37); SGPT/ALT 235 U/L (12-78); TOT PROT 5.8 g/dl (6.4-8.2)
--- NOTE | 2017-05-23 09:37 | PN ---
Progress Note (short form) - Note Progress Note: asymptomatic. requesting to leave. states she is still hearing the man and that "they say" to gather people that they have to pay. deneis Cp, SOB, fever, chills , abdominal pain, N/V/C/D Current Medications Generic Name Dose Route Start Last Admin Trade Name Lina PRN Reason Stop Dose Admin Enoxaparin Sodium 40 mg 05/18/17 10:00 05/22/17 09:46 Lovenox - SQ 40 mg DAILY MOJGAN Administration Olanzapine 5 mg 05/18/17 22:00 05/22/17 22:10 Zyprexa - PO 5 mg HS MOJGAN Administration Last Vital Signs Temp Pulse Resp BP Pulse Ox 97.5 F L 77 16 124/60 98 05/23/17 07:44 05/23/17 07:44 05/23/17 07:44 05/23/17 07:44 05/22/17 20:59 General resting comfortable. ASSESSMENT AND PLAN: 71 yo F with no significant medical history who presented to the ER with confusion and poor oral intake. 1. Encephalopathy with paranoia- remains paranoid. workup negative. pt poses risk to others due to hallucinations and commands. on 1:1 observation. 2 PC committed. awaiting bed availability at [facility]. on zyprexa. 2. Acute transaminitis- possible due to zyprexa. however due to improvement on zyprexa would not want to quickly switch this medication at this time. however are stable from yesterday to today. will check hepatitis panel. will cont to monitor while hospitalized and if continues to rise will switch to another agent. however does not warrant workup at this time. 3. Hypernatremia-due to poor oral intake. resolved. 4. Hypokalemia- Improved 5, leukocytosis- likely reactive. no signs of infection. resolved 6. DVT ppx- lovenox 7. pt is medically optimized for transfer to psych facility. spoke with CM Visit type - Emergency Visit Emergency Visit: Yes ED Registration Date: 05/16/17 Care time: The patient presented to the Emergency Department on the above date and was hospitalized for further evaluation of their emergent condition. - New Patient This patient is new to me today: No - Critical Care Critical Care patient: No - Discharge Referral Referred to [facility] Med P.C.: No
[2017-05-23] MEDS: ENOXAPARIN NA (PORCINE) 40 MG/0.4 ML DISP.SYRIN SQ SCH (09:56)
[2017-05-23] MEDS: OLANZapine 5 MG TABLET PO SCH (21:31)
[2017-05-24 09:08] LABS: ALBUMIN 2.9 g/dl (3.4-5.0); ALK PHOS 114 U/L (45-117); ANION GAP 10 (8-16); BILIRUBIN,TOTAL 0.7 mg/dL (0.2-1.0); CO2 25 mmol/L (21-32); CREATININE 0.6 mg/dL (0.55-1.02); GLUCOSE,RANDOM 94 mg/dL (74-106); MAGNESIUM 2.3 mg/dL (1.8-2.4); SGOT/AST 94 U/L (15-37); SGPT/ALT 208 U/L (12-78); TOT PROT 5.9 g/dl (6.4-8.2)
--- NOTE | 2017-05-24 10:36 | PN ---
Progress Note (short form) - Note Progress Note: asymptomatic. deneis Cp, SOB, fever, chills, abdominal pain, N/V/C/D Current Medications Generic Name Dose Route Start Last Admin Trade Name Lina PRN Reason Stop Dose Admin Enoxaparin Sodium 40 mg 05/18/17 10:00 05/23/17 09:56 Lovenox - SQ 40 mg DAILY MOJGAN Administration Olanzapine 5 mg 05/18/17 22:00 05/23/17 21:31 Zyprexa - PO 5 mg HS MOJGAN Administration Last Vital Signs Temp Pulse Resp BP Pulse Ox 97.9 F 83 18 126/67 98 05/23/17 22:00 05/23/17 22:00 05/23/17 22:00 05/23/17 22:00 05/23/17 21:00 General resting comfortable. CMP Sodium 142 mmol/L (136-145) 05/24/17 07:00 Potassium 3.8 mmol/L (3.5-5.1) 05/24/17 07:00 Chloride 107 mmol/L (98-107) 05/24/17 07:00 Carbon Dioxide 25 mmol/L (21-32) 05/24/17 07:00 Anion Gap 10 (8-16) 05/24/17 07:00 BUN 16 mg/dL (7-18) 05/24/17 07:00 Creatinine 0.6 mg/dL (0.55-1.02) 05/24/17 07:00 Creat Clearance w eGFR > 60 (>60) 05/24/17 07:00 Calcium 9.0 mg/dL (8.5-10.1) 05/24/17 07:00 Total Bilirubin 0.7 mg/dL (0.2-1.0) 05/24/17 07:00 AST 94 U/L (15-37) H D 05/24/17 07:00 ALT 208 U/L (12-78) H 05/24/17 07:00 Alkaline Phosphatase 114 U/L (45-117) 05/24/17 07:00 Total Protein 5.9 g/dl (6.4-8.2) L 05/24/17 07:00 Albumin 2.9 g/dl (3.4-5.0) L 05/24/17 07:00 ASSESSMENT AND PLAN: 71 yo F with no significant medical history who presented to the ER with confusion and poor oral intake. 1. Encephalopathy with paranoia- remains paranoid. workup negative. pt poses risk to others due to hallucinations and commands. on 1:1 observation. 2 PC committed. awaiting bed availability at inpatient psych. on zyprexa. 2. Acute transaminitis- possible due to zyprexa. however due to improvement on zyprexa would not want to quickly switch this medication at this time. continues to trend down. hepatitis panel pending. does not warrant workup at this time. 3. Hypernatremia-due to poor oral intake. resolved. 4. Hypokalemia- Improved 5, leukocytosis- likely reactive. no signs of infection. resolved 6. DVT ppx- lovenox 7. Multiple calls to [facility] yesterday with no return call. Called this AM and claimed they called me back but personal cell was given. Awaiting to hear back from Dr Kahn who is communication lecturer physician for today. Visit type - Emergency Visit Emergency Visit: Yes ED Registration Date: 05/16/17 Care time: The patient presented to the Emergency Department on the above date and was hospitalized for further evaluation of their emergent condition. - New Patient This patient is new to me today: No - Critical Care Critical Care patient: No - Discharge Referral Referred to [facility] Med P.C.: No
[2017-05-24] MEDS: ENOXAPARIN NA (PORCINE) 40 MG/0.4 ML DISP.SYRIN SQ SCH (10:46)
[2017-05-24] MEDS ORDERED: POTASSIUM CHLORIDE ORAL LIQUID 20 MEQ/15 ML PO ONE (10:50)
[2017-05-24] MEDS: OLANZapine 5 MG TABLET PO SCH (21:11)
--- NOTE | 2017-05-25 07:30 | PN ---
Physical Exam: SUBJECTIVE: Patient seen and examined. Initially stated she cannot talk, but reassured that examiner can hear the pt. Then states that she "feels someone on top of her". Is noticeably paranoid, she understands her hallucinations are not real and that we do not hear them. On orientation questions, is AAOx3. Eating better according to nurses OBJECTIVE: Vital Signs Period Temp Pulse Resp BP Sys/Garrido Pulse Ox Last 24 Hr 97.5 F-98.5 F 76-106 18-18 105-142/60-70 98-99 GEN: Awake, alert, oriented to person, place, month, year, immediate memory recall intact, but noticeably paranoid HEENT: PERRLA, EOMi CV: S1, S2, RRR LUNG: CTABL ABD: Soft, NT, ND, normoactive BS MSK: Scattered excoriations along body NEURO: Difficult to assess, patient is still tangential in thoughts. But MSK and sensation intact. Laboratory Last Values WBC 7.3 K/mm3 (4.0-10.0) 05/22/17 13:29 RBC 4.64 M/mm3 (3.60-5.2) 05/22/17 13:29 Hgb 13.4 GM/dL (10.7-15.3) 05/22/17 13:29 Hct 40.8 % (32.4-45.2) 05/22/17 13:29 MCV 88.0 fl (80-96) 05/22/17 13:29 MCH 28.8 pg (25.7-33.7) 05/22/17 13:29 MCHC 32.8 g/dl (32.0-36.0) 05/22/17 13:29 RDW 14.4 % (11.6-15.6) 05/22/17 13:29 Plt Count 149 K/MM3 (134-434) 05/22/17 13:29 MPV 11.0 fl (7.5-11.1) 05/22/17 13:29 Neutrophils % 45.6 % (42.8-82.8) D 05/22/17 13:29 Lymphocytes % 39.3 % (8-40) D 05/22/17 13:29 Monocytes % 11.4 % (3.8-10.2) H 05/22/17 13:29 Eosinophils % 2.8 % (0-4.5) 05/22/17 13:29 Basophils % 0.9 % (0-2.0) 05/22/17 13:29 RBC Morphology 05/22/17 13:29 PT with INR 13.30 SEC (9.98-11.88) H 05/16/17 18:00 INR 1.18 (0.82-1.09) H 05/16/17 18:00 Sodium 142 mmol/L (136-145) 05/24/17 07:00 Potassium 3.8 mmol/L (3.5-5.1) 05/24/17 07:00 Chloride 107 mmol/L (98-107) 05/24/17 07:00 Carbon Dioxide 25 mmol/L (21-32) 05/24/17 07:00 Anion Gap 10 (8-16) 05/24/17 07:00 BUN 16 mg/dL (7-18) 05/24/17 07:00 Creatinine 0.6 mg/dL (0.55-1.02) 05/24/17 07:00 Creat Clearance w eGFR > 60 (>60) 05/24/17 07:00 POC Glucometer 94 UNITS (()) 05/19/17 20:31 Random Glucose 94 mg/dL (74-106) 05/24/17 07:00 Calcium 9.0 mg/dL (8.5-10.1) 05/24/17 07:00 Magnesium 2.3 mg/dL (1.8-2.4) 05/24/17 07:00 Total Bilirubin 0.7 mg/dL (0.2-1.0) 05/24/17 07:00 Direct Bilirubin 0.2 mg/dL (0.0-0.2) 05/22/17 07:00 AST 94 U/L (15-37) H D 05/24/17 07:00 ALT 208 U/L (12-78) H 05/24/17 07:00 Alkaline Phosphatase 114 U/L (45-117) 05/24/17 07:00 Ammonia 12.16 umol/L (11-32) 05/16/17 18:00 Creatine Kinase 106 IU/L (26-192) 05/16/17 18:00 Troponin I < 0.02 ng/ml (0.00-0.05) 05/16/17 18:00 Total Protein 5.9 g/dl (6.4-8.2) L 05/24/17 07:00 Albumin 2.9 g/dl (3.4-5.0) L 05/24/17 07:00 Urine Color Isi 05/16/17 19:52 Urine Appearance Slcloudy 05/16/17 19:52 Urine pH 5.0 (5.0-8.0) 05/16/17 19:52 Ur Specific [place] 1.025 (1.005-1.025) 05/16/17 19:52 Urine Protein 1+ (NEGATIVE) H 05/16/17 19:52 Urine Glucose (UA) 1+ (NEGATIVE) H 05/16/17 19:52 Urine Ketones Trace (NEGATIVE) H 05/16/17 19:52 Urine Blood Negative (NEGATIVE) 05/16/17 19:52 Urine Nitrite Negative (NEGATIVE) 05/16/17 19:52 Urine Bilirubin Negative (NEGATIVE) 05/16/17 19:52 Urine Urobilinogen 2.0 mg/dL (0.2-1.0) H 05/16/17 19:52 Ur Leukocyte Esterase Negative (NEGATIVE) 05/16/17 19:52 Urine RBC 1 /hpf (0-3) 05/16/17 19:52 Urine WBC 4 /hpf (3-5) 05/16/17 19:52 Ur Epithelial Cells Rare /hpf (FEW) 05/16/17 19:52 Urine Bacteria Rare /hpf (NONE SEEN) 05/16/17 19:52 Hyaline Casts 9 /lpf 05/16/17 19:52 Urine Mucus Few 05/16/17 19:52 Urine Osmolality 1208 mosm/kg (300-900) H 05/16/17 23:37 Ur Random Sodium 223 MMOL/L 05/16/17 23:37 Salicylates < 4.0 mg/dl (0.0-30.0) 05/16/17 18:00 Opiates Screen Negative ng/ml (RPIYFU=235) 05/16/17 18:00 Methadone Screen Negative ng/ml (UQOIWP=006) 05/16/17 18:00 Acetaminophen < 2.0 ug/ml (10.0-30.0) L 05/16/17 18:00 Barbiturate Screen Negative ng/ml (AAHMOZ=088) 05/16/17 18:00 Phencyclidine Screen Negative ng/ml (CUTOFF=25) 05/16/17 18:00 Ur Amphetamines Screen Negative ng/ml (EKRRFP=138) 05/16/17 18:00 MDMA (Ecstasy) Screen Negative ng/ml (LTEZHU=732) 05/16/17 18:00 Benzodiazepines Screen Negative ng/ml (UVTFBP=469) 05/16/17 18:00 Cocaine Screen Negative ng/ml (ZKEPNP=985) 05/16/17 18:00 U Marijuana (THC) Screen Negative ng/ml (CUTOFF=50) 05/16/17 18:00 Alcohol, Quantitative < 5.0 mg/dl (0-5) 05/16/17 18:00 Active Medications Generic Name Dose Route Start Last Admin Trade Name Freq PRN Reason Stop Dose Admin Enoxaparin Sodium 40 mg 05/18/17 10:00 05/24/17 10:46 Lovenox - SQ 40 mg DAILY MOJGAN Administration Olanzapine 5 mg 05/18/17 22:00 05/24/17 21:11 Zyprexa - PO 5 mg HS MOJGAN Administration ASSESSMENT/PLAN: Ms Ramey is a 71yo F with no significant PMHx, no psychiatric history, who was brought to the ER by her sister due to gradual onset AMS after poor PO intake. Found to have significant hypernatremia of 155. # Acute on Chronic Encephalopathy - metabolic w/u negative, likely underlying psychiatric condition exacerbated by recent stressors, MRI negative, Na+ corrected - Continue PM Zyprexa, involuntarily transfer to inpatient psych, papers signed, 1:1, awaiting bed, Dr. Story in agreement # Hypernatremia improved, was due to poor PO intake on admission # Hypokalemia - will replete PRN, normal Mg level # Transaminitis - no abd pain, trending down, possible rare sfx of zyprexa, but due to improvement on Zyprexa would hesitate to d/c, hepatitis panel pending # FEN - No IVF, diabetic diet # PPx - Heparin SQ TID, PT ordered # Dispo Awaiting acceptance at inpatient psych facility. [facility] is reviewing the case d/w Dr Jenny Matt MD - PGY1 Internal Medicine Visit type - Emergency Visit Emergency Visit: No - New Patient This patient is new to me today: No - Critical Care Critical Care patient: No - Discharge Referral Referred to [facility] Med P.C.: No
[2017-05-25 08:25] LABS: ALK PHOS 109 U/L (45-117); ANION GAP 9 (8-16); BILIRUBIN,TOTAL 0.7 mg/dL (0.2-1.0); CALCIUM 9.1 mg/dL (8.5-10.1); CO2 26 mmol/L (21-32); CREATININE 0.6 mg/dL (0.55-1.02); GLUCOSE,RANDOM 84 mg/dL (74-106); MAGNESIUM 2.2 mg/dL (1.8-2.4); SGOT/AST 69 U/L (15-37); SGPT/ALT 169 U/L (12-78); TOT PROT 5.8 g/dl (6.4-8.2)
[2017-05-25 09:42] LABS: CPK 22 IU/L (26-192)
--- NOTE | 2017-05-25 09:56 | PN ---
Progress Note (short form) - Note Progress Note: Neurology History of Present Illness The patient is a 71 year old female, with reportedly no significant past medical history who presented to the emergency department reportedly accompanied by family members with signs of altered mental status for an unknown period of time. As per sister who arrived to the patients home from [place] n day of admission, the patient was found to be increasingly confused and with multiple lesions to the head, feet, and other extremities. Sister reports patient was able to recognize her and open the door. Family reports the patient lives at home with her brother. As per brother, patient visited her father at the hospital 1 week ago, and since then she has not wanted to leave the house, has been pulling her hair out, missing meals, and not bathing. Family states patient has been under a lot of stress over the past 6 months, as she has been hypervigilant over her father who has been at a residential facility. The patient's brother reported she has had multiple episodes of urinary incontinence and she has complained of dysuria. Patient states the words are not making sense. the patient was admitted for further evaluation and management. She completed a noncontrast head CT which did not show any acute changes. During my evaluation, she was minimally verbal but more alert and cooperative today. Seen by neuropsychologist who deemed patient does not have capacity. Also noted auditory hallucinations. Unclear if recent stressors may have but will evaluate for any organic etiology and MRI brain completed and reviewed in detail. The patient was more awake and alert and interactive. No acute events over the weekend. Plan is for inpatient psych admission given her ongoing symtoms and concern for safety. Neurologically she is stable and without focal issues. Active Medications Enoxaparin Sodium (Lovenox -) 40 mg SQ DAILY [facility] Last Admin: 05/24/17 10:46 Dose: 40 mg Olanzapine (Zyprexa -) 5 mg PO HS [facility] Last Admin: 05/24/17 21:11 Dose: 5 mg *Physical Exam Vital Signs Temperature 97.8 F 05/25/17 07:47 Pulse Rate 72 05/25/17 07:47 Respiratory Rate 20 05/25/17 07:47 Blood Pressure 139/67 05/25/17 07:47 O2 Sat by Pulse Oximetry (%) 99 05/24/17 20:14 CONSTITUTIONAL: Awake and alert; confused, disheveled, in no apparent distress HEAD: Normocephalic; atraumatic; + numerous excoriated circular lesions to the scalp; EYES: PERRL; EOM intact; no photophobia ENMT: External appears normal; mm-dry NECK: Supple; non-tender; no cervical lymphadenopathy; CARD: Normal S1, S2; no murmurs, rubs, or gallops RESP: Normal chest excursion with respiration; breath sounds clear and equal bilaterally; no wheezes, rhonchi, or rales ABD: Soft, non-distended; non-tender; no palpable organomegaly, no palpable hernias EXT: Normal ROM in all four extremities; non-tender to palpation; distal pulses intact SKIN: Warm, dry, + numerous circular (approximately 0.5 cm in diameter), excoriated lesions to upper chest, upper and mid back and lower extremities; NEURO: Patient oriented to self and place only; confused to date; uncooperative , moving all extremities symmetrically, gait-deferred; CBCD WBC 7.3 K/mm3 (4.0-10.0) 05/22/17 13:29 RBC 4.64 M/mm3 (3.60-5.2) 05/22/17 13:29 Hgb 13.4 GM/dL (10.7-15.3) 05/22/17 13:29 Hct 40.8 % (32.4-45.2) 05/22/17 13:29 MCV 88.0 fl (80-96) 05/22/17 13:29 MCHC 32.8 g/dl (32.0-36.0) 05/22/17 13:29 RDW 14.4 % (11.6-15.6) 05/22/17 13:29 Plt Count 149 K/MM3 (134-434) 05/22/17 13:29 MPV 11.0 fl (7.5-11.1) 05/22/17 13:29 CMP Sodium 141 mmol/L (136-145) 05/25/17 07:00 Potassium 4.1 mmol/L (3.5-5.1) 05/25/17 07:00 Chloride 106 mmol/L (98-107) 05/25/17 07:00 Carbon Dioxide 26 mmol/L (21-32) 05/25/17 07:00 Anion Gap 9 (8-16) 05/25/17 07:00 BUN 15 mg/dL (7-18) 05/25/17 07:00 Creatinine 0.6 mg/dL (0.55-1.02) 05/25/17 07:00 Creat Clearance w eGFR > 60 (>60) 05/25/17 07:00 Calcium 9.1 mg/dL (8.5-10.1) 05/25/17 07:00 Total Bilirubin 0.7 mg/dL (0.2-1.0) 05/25/17 07:00 AST 69 U/L (15-37) H D 05/25/17 07:00 ALT 169 U/L (12-78) H 05/25/17 07:00 Alkaline Phosphatase 109 U/L (45-117) 05/25/17 07:00 Total Protein 5.8 g/dl (6.4-8.2) L 05/25/17 07:00 Albumin 3.0 g/dl (3.4-5.0) L 05/25/17 07:00 - RADIOLOGY EXAM: CXR IMPRESSION: No acute pathology. EXAM: Head CT INTERPRETED BY: Dr. Valiente IMPRESSION: There is no evidence of acute infarction. There is no hemorrhage. If symptoms persist or worsen, consider follow brain MRI. Medical Decision Making 71 year old female, with reportedly no significant past medical history who presented to the emergency department reportedly accompanied by family members with signs of altered mental status for an unknown period of time. She completed a noncontrast head CT which did not show any acute changes. She was seen by psychiatry and has been put on medication. Psych note reviewed, depression with hallucinations Has been put on Zyprexa Deemed not to have decision making capacity Unclear if recent stressors may have been significant contributer MRI brain reviewed in detail and with age related changes but no acute abnormalities Hypernatremia has improved Increased PO and IV hydration Plan for inpatient psych admission Neurologically stable and without focal deficits Agree with psych admission plan
[2017-05-25] MEDS: ENOXAPARIN NA (PORCINE) 40 MG/0.4 ML DISP.SYRIN SQ SCH (09:58)
--- NOTE | 2017-05-25 12:49 | PN ---
Teaching Attending Note Name of Resident: Agapito Matt ATTENDING PHYSICIAN STATEMENT I saw and evaluated the patient. I reviewed the resident's note and discussed the case with the resident. I agree with the resident's findings and plan as documented. SUBJECTIVE:stressed over voices she hears in the hallways. concerned if other people are also hearing them. states she is still hearing the man speak to her. will not divuldge at this time what he is saying. denies CP, SOB, fever, or chills OBJECTIVE: Last Vital Signs Temp Pulse Resp BP Pulse Ox 97.8 F 81 17 141/71 98 05/25/17 10:00 05/25/17 10:00 05/25/17 10:00 05/25/17 10:00 05/25/17 09:00 General NAD ASSESSMENT AND PLAN: 71 yo F with no significant medical history who presented to the ER with confusion and poor oral intake. 1. Encephalopathy with paranoia- remains paranoid. workup negative. pt poses risk to others due to hallucinations and commands. on 1:1 observation. 2 PC committed. awaiting bed availability at inpatient psych. on zyprexa. 2. Acute transaminitis- possible due to zyprexa. now trending down and almost normalized. hepatits panel pending however low suspicion that this would be cause. llikely transient increase due to medication. no indication for workup at this time. 3. Hypernatremia-due to poor oral intake. resolved. 4. Hypokalemia- Resolved 5, leukocytosis- likely reactive. no signs of infection. resolved 6. DVT ppx- lovenox 7. Information to be re-faxed to [facility] to see if they are now agreeable to transfer. pt medically optimized and no workup necessary at this time.
[2017-05-25] MEDS: OLANZapine 5 MG TABLET PO SCH (22:28)
[2017-05-26] MEDS: AMINO ACIDS/PROTEIN HYDROLYS 30 ML LIQUID.PKT PO SCH ×2 (08:40→17:23)
--- NOTE | 2017-05-26 08:48 | PN ---
Physical Exam: SUBJECTIVE: Patient seen and examined. AAOx3 with good memory recall, but still paranoid. States that a "man" is asking her for something, she cannot repay him , and she is in debt. Has improved appetite. OBJECTIVE: Vital Signs Period Temp Pulse Resp BP Sys/Garrido Pulse Ox Last 24 Hr 97.2 F-98.6 F 67-87 17-20 121-141/51-81 98-98 GEN: Awake, alert, oriented to person, place, month, year, immediate memory recall intact, but noticeably paranoid HEENT: PERRLA, EOMi CV: S1, S2, RRR LUNG: CTABL ABD: Soft, NT, ND, normoactive BS MSK: Scattered excoriations along body NEURO: Difficult to assess, patient is still tangential in thoughts. But MSK and sensation intact. Laboratory Last Values WBC 7.3 K/mm3 (4.0-10.0) 05/22/17 13:29 RBC 4.64 M/mm3 (3.60-5.2) 05/22/17 13:29 Hgb 13.4 GM/dL (10.7-15.3) 05/22/17 13:29 Hct 40.8 % (32.4-45.2) 05/22/17 13:29 MCV 88.0 fl (80-96) 05/22/17 13:29 MCH 28.8 pg (25.7-33.7) 05/22/17 13:29 MCHC 32.8 g/dl (32.0-36.0) 05/22/17 13:29 RDW 14.4 % (11.6-15.6) 05/22/17 13:29 Plt Count 149 K/MM3 (134-434) 05/22/17 13:29 MPV 11.0 fl (7.5-11.1) 05/22/17 13:29 Neutrophils % 45.6 % (42.8-82.8) D 05/22/17 13:29 Lymphocytes % 39.3 % (8-40) D 05/22/17 13:29 Monocytes % 11.4 % (3.8-10.2) H 05/22/17 13:29 Eosinophils % 2.8 % (0-4.5) 05/22/17 13:29 Basophils % 0.9 % (0-2.0) 05/22/17 13:29 RBC Morphology 05/22/17 13:29 PT with INR 13.30 SEC (9.98-11.88) H 05/16/17 18:00 INR 1.18 (0.82-1.09) H 05/16/17 18:00 Sodium 141 mmol/L (136-145) 05/25/17 07:00 Potassium 4.1 mmol/L (3.5-5.1) 05/25/17 07:00 Chloride 106 mmol/L (98-107) 05/25/17 07:00 Carbon Dioxide 26 mmol/L (21-32) 05/25/17 07:00 Anion Gap 9 (8-16) 05/25/17 07:00 BUN 15 mg/dL (7-18) 05/25/17 07:00 Creatinine 0.6 mg/dL (0.55-1.02) 05/25/17 07:00 Creat Clearance w eGFR > 60 (>60) 05/25/17 07:00 POC Glucometer 94 UNITS (()) 05/19/17 20:31 Random Glucose 84 mg/dL (74-106) 05/25/17 07:00 Calcium 9.1 mg/dL (8.5-10.1) 05/25/17 07:00 Magnesium 2.2 mg/dL (1.8-2.4) 05/25/17 07:00 Total Bilirubin 0.7 mg/dL (0.2-1.0) 05/25/17 07:00 Direct Bilirubin 0.2 mg/dL (0.0-0.2) 05/22/17 07:00 AST 69 U/L (15-37) H D 05/25/17 07:00 ALT 169 U/L (12-78) H 05/25/17 07:00 Alkaline Phosphatase 109 U/L (45-117) 05/25/17 07:00 Ammonia 12.16 umol/L (11-32) 05/16/17 18:00 Creatine Kinase 22 IU/L (26-192) L 05/25/17 07:00 Troponin I < 0.02 ng/ml (0.00-0.05) 05/16/17 18:00 Total Protein 5.8 g/dl (6.4-8.2) L 05/25/17 07:00 Albumin 3.0 g/dl (3.4-5.0) L 05/25/17 07:00 Urine Color Isi 05/16/17 19:52 Urine Appearance Slcloudy 05/16/17 19:52 Urine pH 5.0 (5.0-8.0) 05/16/17 19:52 Ur Specific [place] 1.025 (1.005-1.025) 05/16/17 19:52 Urine Protein 1+ (NEGATIVE) H 05/16/17 19:52 Urine Glucose (UA) 1+ (NEGATIVE) H 05/16/17 19:52 Urine Ketones Trace (NEGATIVE) H 05/16/17 19:52 Urine Blood Negative (NEGATIVE) 05/16/17 19:52 Urine Nitrite Negative (NEGATIVE) 05/16/17 19:52 Urine Bilirubin Negative (NEGATIVE) 05/16/17 19:52 Urine Urobilinogen 2.0 mg/dL (0.2-1.0) H 05/16/17 19:52 Ur Leukocyte Esterase Negative (NEGATIVE) 05/16/17 19:52 Urine RBC 1 /hpf (0-3) 05/16/17 19:52 Urine WBC 4 /hpf (3-5) 05/16/17 19:52 Ur Epithelial Cells Rare /hpf (FEW) 05/16/17 19:52 Urine Bacteria Rare /hpf (NONE SEEN) 05/16/17 19:52 Hyaline Casts 9 /lpf 05/16/17 19:52 Urine Mucus Few 05/16/17 19:52 Urine Osmolality 1208 mosm/kg (300-900) H 05/16/17 23:37 Ur Random Sodium 223 MMOL/L 05/16/17 23:37 Salicylates < 4.0 mg/dl (0.0-30.0) 05/16/17 18:00 Opiates Screen Negative ng/ml (JSJPXO=722) 05/16/17 18:00 Methadone Screen Negative ng/ml (IBSJIB=856) 05/16/17 18:00 Acetaminophen < 2.0 ug/ml (10.0-30.0) L 05/16/17 18:00 Barbiturate Screen Negative ng/ml (ABBEUY=430) 05/16/17 18:00 Phencyclidine Screen Negative ng/ml (CUTOFF=25) 05/16/17 18:00 Ur Amphetamines Screen Negative ng/ml (LQWNLT=973) 05/16/17 18:00 MDMA (Ecstasy) Screen Negative ng/ml (MWCUTJ=317) 05/16/17 18:00 Benzodiazepines Screen Negative ng/ml (RFNDGH=907) 05/16/17 18:00 Cocaine Screen Negative ng/ml (VDICWI=989) 05/16/17 18:00 U Marijuana (THC) Screen Negative ng/ml (CUTOFF=50) 05/16/17 18:00 Alcohol, Quantitative < 5.0 mg/dl (0-5) 05/16/17 18:00 Hepatitis A IgM Ab Negative (Negative) 05/24/17 07:54 Hep Bs Antigen Negative (Negative) 05/24/17 07:54 Hep B Core IgM Ab Negative (Negative) 05/24/17 07:54 Hepatitis C Ab (EIA) <0.1 s/co ratio (0.0-0.9) 05/24/17 07:54 Active Medications Generic Name Dose Route Start Last Admin Trade Name Freq PRN Reason Stop Dose Admin Amino Acids 30 ml 05/26/17 08:00 Prosource No Carb Liquid Pkt PO BID@0800,1730 MOJGAN Multivitamins/Minerals/Vitamin C 1 tab 05/26/17 10:00 Tab-A-Vit - PO DAILY MOJGAN Olanzapine 5 mg 05/18/17 22:00 05/25/17 22:28 Zyprexa - PO 5 mg HS MOJGAN Administration ASSESSMENT/PLAN: Ms Ramey is a 71yo F with no significant PMHx, no psychiatric history, who was brought to the ER by her sister due to gradual onset AMS after poor PO intake. Found to have significant hypernatremia of 155. # Acute on Chronic Encephalopathy - metabolic w/u neg, likely underlying psych condition exacerbated by stressors, MRI negative, Na+ corrected - Continue PM Zyprexa, involuntarily transfer to inpatient psych, papers signed, 1:1, awaiting bed, Dr. Story in agreement - Pt is on waiting list at [facility] in [place] # Transaminitis - no abd pain, hep panel negative, trending down, no concern # Hypernatremia improved, was due to poor PO intake on admission # Hypokalemia - will replete PRN, normal Mg level # FEN - No IVF, sodium controlled diet # PPx - Heparin SQ TID, PT ordered # Dispo Pt is medically stable for transfer to inpatient psych, multiple calls made, no inpatient beds available, pt is on waiting list at [facility]. will d/w Dr Triplett and Dr Jez Matt MD - PGY1 Internal Medicine Visit type - Emergency Visit Emergency Visit: No - New Patient This patient is new to me today: No - Critical Care Critical Care patient: No - Discharge Referral Referred to [facility] Med P.C.: No
[2017-05-26 09:08] LABS: ALBUMIN 3.1 g/dl (3.4-5.0); ALK PHOS 109 U/L (45-117); ANION GAP 12 (8-16); BILIRUBIN,TOTAL 0.7 mg/dL (0.2-1.0); CALCIUM 9.7 mg/dL (8.5-10.1); CO2 24 mmol/L (21-32); CREATININE 0.5 mg/dL (0.55-1.02); GLUCOSE,RANDOM 88 mg/dL (74-106); SGOT/AST 59 U/L (15-37); SGPT/ALT 148 U/L (12-78); TOT PROT 6.2 g/dl (6.4-8.2)
--- NOTE | 2017-05-26 09:21 | PN ---
Progress Note (short form) - Note Progress Note: Neurology History of Present Illness The patient is a 71 year old female, with reportedly no significant past medical history who presented to the emergency department reportedly accompanied by family members with signs of altered mental status for an unknown period of time. As per sister who arrived to the patients home from [place] n day of admission, the patient was found to be increasingly confused and with multiple lesions to the head, feet, and other extremities. Sister reports patient was able to recognize her and open the door. Family reports the patient lives at home with her brother. As per brother, patient visited her father at the hospital 1 week ago, and since then she has not wanted to leave the house, has been pulling her hair out, missing meals, and not bathing. Family states patient has been under a lot of stress over the past 6 months, as she has been hypervigilant over her father who has been at a snf facility. The patient's brother reported she has had multiple episodes of urinary incontinence and she has complained of dysuria. Patient states the words are not making sense. the patient was admitted for further evaluation and management. She completed a noncontrast head CT which did not show any acute changes. During my evaluation, she was minimally verbal but more alert and cooperative today. Seen by neuropsychologist who deemed patient does not have capacity. Also noted auditory hallucinations. Unclear if recent stressors may have but will evaluate for any organic etiology and MRI brain completed and reviewed in detail without significant structural abnormalities. The patient was more awake and alert and interactive through clinical course. Plan is for inpatient psych admission as she continues to have auditory hallucinations. Active Medications Amino Acids (Prosource No Carb Liquid Pkt) 30 ml PO BID@0800,1730 [facility] Last Admin: 05/26/17 08:40 Dose: 30 ml Multivitamins/Minerals/Vitamin C (Tab-A-Vit -) 1 tab PO DAILY [facility] Olanzapine (Zyprexa -) 5 mg PO HS [facility] Last Admin: 05/25/17 22:28 Dose: 5 mg *Physical Exam Vital Signs Period Temp Pulse Resp BP Sys/Garrido Pulse Ox Last 24 Hr 97.2 F-98.6 F 67-87 17-20 121-141/51-81 98 CONSTITUTIONAL: Awake and alert; confused, disheveled, in no apparent distress HEAD: Normocephalic; atraumatic; + numerous excoriated circular lesions to the scalp; EYES: PERRL; EOM intact; no photophobia ENMT: External appears normal; mm-dry NECK: Supple; non-tender; no cervical lymphadenopathy; CARD: Normal S1, S2; no murmurs, rubs, or gallops RESP: Normal chest excursion with respiration; breath sounds clear and equal bilaterally; no wheezes, rhonchi, or rales ABD: Soft, non-distended; non-tender; no palpable organomegaly, no palpable hernias EXT: Normal ROM in all four extremities; non-tender to palpation; distal pulses intact SKIN: Warm, dry, + numerous circular (approximately 0.5 cm in diameter), excoriated lesions to upper chest, upper and mid back and lower extremities; NEURO: Patient oriented to self and place only; hearing voices, confused to date ; uncooperative, moving all extremities symmetrically, gait-deferred; CBCD WBC 7.3 K/mm3 (4.0-10.0) 05/22/17 13:29 RBC 4.64 M/mm3 (3.60-5.2) 05/22/17 13:29 Hgb 13.4 GM/dL (10.7-15.3) 05/22/17 13:29 Hct 40.8 % (32.4-45.2) 05/22/17 13:29 MCV 88.0 fl (80-96) 05/22/17 13:29 MCHC 32.8 g/dl (32.0-36.0) 05/22/17 13:29 RDW 14.4 % (11.6-15.6) 05/22/17 13:29 Plt Count 149 K/MM3 (134-434) 05/22/17 13:29 MPV 11.0 fl (7.5-11.1) 05/22/17 13:29 CMP Sodium 139 mmol/L (136-145) 05/26/17 06:30 Potassium 3.9 mmol/L (3.5-5.1) 05/26/17 06:30 Chloride 103 mmol/L (98-107) 05/26/17 06:30 Carbon Dioxide 24 mmol/L (21-32) 05/26/17 06:30 Anion Gap 12 (8-16) 05/26/17 06:30 BUN 16 mg/dL (7-18) 05/26/17 06:30 Creatinine 0.5 mg/dL (0.55-1.02) L 05/26/17 06:30 Creat Clearance w eGFR > 60 (>60) 05/26/17 06:30 Calcium 9.7 mg/dL (8.5-10.1) 05/26/17 06:30 Total Bilirubin 0.7 mg/dL (0.2-1.0) 05/26/17 06:30 AST 59 U/L (15-37) H 05/26/17 06:30 ALT 148 U/L (12-78) H 05/26/17 06:30 Alkaline Phosphatase 109 U/L (45-117) 05/26/17 06:30 Total Protein 6.2 g/dl (6.4-8.2) L 05/26/17 06:30 Albumin 3.1 g/dl (3.4-5.0) L 05/26/17 06:30 - RADIOLOGY CT head as reported MRI brain as reported Medical Decision Making 71 year old female, with reportedly no significant past medical history who presented to the emergency department reportedly accompanied by family members with signs of altered mental status for an unknown period of time. She completed a noncontrast head CT which did not show any acute changes. She was seen by psychiatry and has been put on Zyprexa Psych note reviewed, depression with hallucinations Deemed not to have decision making capacity Unclear if recent stressors may have been significant contributer MRI brain reviewed in detail and with age related changes but no acute abnormalities Hypernatremia has improved Increased PO and IV hydration Plan for inpatient psych admission Neurologically stable and without focal deficits Agree with psych admission plan
[2017-05-26] MEDS: MULTIVITAMINS (DAILY MVI) TABLET (FP) PO SCH (09:28)
--- NOTE | 2017-05-26 10:31 | PN ---
Progress Note (short form) - Note Progress Note: Pt. was alert and communicative but still displayed the presence of paranoid delusions. She felt that people were going to kill her. She also stated that we were computer generated replications of people. On a positive note, she recalled 1/3 words presented to her last week. The patient still appears very anxious and exhibits a depressed affect. She stated that she did not take one of her medications for fear that it would harm her. The patient continues to require 1:1 coverage by a sitter as she is a potential danger to herself.
--- NOTE | 2017-05-26 11:55 | PN ---
Teaching Attending Note Name of Resident: Agapito Matt ATTENDING PHYSICIAN STATEMENT Time evaluation: 9:30 AM I saw and evaluated the patient. I reviewed the resident's note and discussed the case with the resident. I agree with the resident's findings and plan as documented. SUBJECTIVE: Patient seen and examined. AAOX3, however paranoid, expressed concerns that everybody was 'laughing at her'. No complaints otherwise. OBJECTIVE: Vital Signs Period Temp Pulse Resp BP Sys/Garrido Pulse Ox Last 24 Hr 97.2 F-98.6 F 67-87 18-20 121-138/51-81 98 Intake & Output 05/24/17 05/24/17 05/25/17 05/26/17 00:59 23:59 23:59 23:59 Intake Total 250 Balance 250 General: ambulating in hallway, in no acute distress CVS S1S2 regular Chest CTAB, no rales or wheezing abdomen -soft, NT, Positive bowel sounds, no CVA tenderness neuro AAOX3, power 5/5, facial symmetry, no gross deficit. Active Medications Generic Name Dose Route Start Last Admin Trade Name Markusq PRN Reason Stop Dose Admin Amino Acids 30 ml 05/26/17 08:00 05/26/17 08:40 Prosource No Carb Liquid Pkt PO 30 ml BID@0800,1730 MOJGAN Administration Multivitamins/Minerals/Vitamin C 1 tab 05/26/17 10:00 05/26/17 09:28 Tab-A-Vit - PO 1 tab DAILY [facility]JGAN Administration Olanzapine 5 mg 05/18/17 22:00 05/25/17 22:28 Zyprexa - PO 5 mg HS [facility] Administration Laboratory Results - last 24 hr 05/24/17 05/26/17 07:54 06:30 Sodium 139 Potassium 3.9 Chloride 103 Carbon Dioxide 24 Anion Gap 12 BUN 16 Creatinine 0.5 L Creat Clearance w eGFR > 60 Random Glucose 88 Calcium 9.7 Total Bilirubin 0.7 AST 59 H ALT 148 H Alkaline Phosphatase 109 Total Protein 6.2 L Albumin 3.1 L Hepatitis A IgM Ab Negative Hep Bs Antigen Negative Hep B Core IgM Ab Negative Hepatitis C Ab (EIA) <0.1 ASSESSMENT AND PLAN: 71 yo F with no significant medical history who presented to the ER with confusion and poor oral intake, found hypernatremic, later course complicated by abnormal LFts. -Major Depressive disorder with psychotic features/Paranoia -Encephalopathy -Hypovolumic hypernatremia -Acute transaminitis, likely medication induced from zyprexa -Hypokalemia, resolved -Leucocytosis, likely reactive/From hemoconcentration, resolved Plan: Psych/neurology input noted. MRI brain neg for acute concerns. Deemed to not have decision making capacity currently. Hypernatremia resolved. LFts trending down, patient with no abdominal symptoms or new concerns. NO additional inpatient medical work up warranted at this time, ok to be transferred to inpatient psychiatry facility with interval liver function monitoring. Discuss with CM and accepting facility. Anticipate d/c when arranged.
--- NOTE | 2017-05-26 12:14 | PN ---
Progress Note (short form) - Note Progress Note: Psych follow up: patient seen for psych follow up. Case discussed with medical and Nursing staff. . Currantly on 1:1 for disorganized and [id number] thinking. Patient is medically stable, there are no In Patient psych beds in the [facility]. I made several calls to different Hospitals. patient is on the waitiing list MS: Alert, oriented to name but very delusional with depressive affect. crying and unable to engage in any meaningful conversatio. SEvere thought disordered, poor insight and judghement a5t this time> Patient is dangerous to self. PLAN: Continue with Zyprexa. Continue with 1:1 Waiting for In Patient psych Hospitalization.
[2017-05-26] MEDS: OLANZapine 5 MG TABLET PO SCH (21:05)
[2017-05-27] MEDS: AMINO ACIDS/PROTEIN HYDROLYS 30 ML LIQUID.PKT PO SCH ×2 (08:35→18:24)
[2017-05-27] MEDS ORDERED: PT OWN MED DRAWER 7, Y5N ONE (09:33)
[2017-05-27] MEDS: MULTIVITAMINS (DAILY MVI) TABLET (FP) PO SCH (09:36)
[2017-05-27] MEDS: ESCITALOPRAM OXALATE 10 MG TABLET (FP) PO SCH (09:36)
--- NOTE | 2017-05-27 09:43 | PN ---
Progress Note (short form) - Note Progress Note: Neurology History of Present Illness The patient is a 71 year old female, with reportedly no significant past medical history who presented to the emergency department reportedly accompanied by family members with signs of altered mental status for an unknown period of time. As per sister who arrived to the patients home from [place] n day of admission, the patient was found to be increasingly confused and with multiple lesions to the head, feet, and other extremities. Sister reports patient was able to recognize her and open the door. Family reports the patient lives at home with her brother. As per brother, patient visited her father at the hospital 1 week ago, and since then she has not wanted to leave the house, has been pulling her hair out, missing meals, and not bathing. Family states patient has been under a lot of stress over the past 6 months, as she has been hypervigilant over her father who has been at a [facility] facility. The patient's brother reported she has had multiple episodes of urinary incontinence and she has complained of dysuria. Patient states the words are not making sense. the patient was admitted for further evaluation and management. She completed a noncontrast head CT which did not show any acute changes. During my evaluation, she was minimally verbal but more alert and cooperative today. Seen by neuropsychologist who deemed patient does not have capacity. Also noted auditory hallucinations. Unclear if recent stressors may have but will evaluate for any organic etiology and MRI brain completed and reviewed in detail without significant structural abnormalities. Continues to be paranoid and disorganized despite being on Zyprexa, Lexapro also added. Plan is for inpatient psych admission as she continues to have auditory hallucinations. Active Medications Amino Acids (Prosource No Carb Liquid Pkt) 30 ml PO BID@0800,1730 [facility] Last Admin: 05/27/17 08:35 Dose: 30 ml Escitalopram Oxalate (Lexapro -) 10 mg PO DAILY [facility] Last Admin: 05/27/17 09:36 Dose: 10 mg Multivitamins/Minerals/Vitamin C (Tab-A-Vit -) 1 tab PO DAILY [facility] Last Admin: 05/27/17 09:36 Dose: 1 tab Olanzapine (Zyprexa -) 5 mg PO HS [facility] Last Admin: 05/26/17 21:05 Dose: 5 mg *Physical Exam Vital Signs Temperature 98.2 F 05/26/17 22:00 Pulse Rate 77 05/26/17 22:00 Respiratory Rate 18 05/26/17 22:00 Blood Pressure 137/72 05/26/17 22:00 O2 Sat by Pulse Oximetry (%) 97 05/26/17 21:00 CONSTITUTIONAL: Awake and alert; confused, disheveled, in no apparent distress HEAD: Normocephalic; atraumatic; + numerous excoriated circular lesions to the scalp; EYES: PERRL; EOM intact; no photophobia ENMT: External appears normal; mm-dry NECK: Supple; non-tender; no cervical lymphadenopathy; CARD: Normal S1, S2; no murmurs, rubs, or gallops RESP: Normal chest excursion with respiration; breath sounds clear and equal bilaterally; no wheezes, rhonchi, or rales ABD: Soft, non-distended; non-tender; no palpable organomegaly, no palpable hernias EXT: Normal ROM in all four extremities; non-tender to palpation; distal pulses intact SKIN: Warm, dry, + numerous circular (approximately 0.5 cm in diameter), excoriated lesions to upper chest, upper and mid back and lower extremities; NEURO: Patient oriented to self and place only; hearing voices, confused to date ; uncooperative, moving all extremities symmetrically, gait-deferred; CBCD WBC 7.3 K/mm3 (4.0-10.0) 05/22/17 13:29 RBC 4.64 M/mm3 (3.60-5.2) 05/22/17 13:29 Hgb 13.4 GM/dL (10.7-15.3) 05/22/17 13:29 Hct 40.8 % (32.4-45.2) 05/22/17 13:29 MCV 88.0 fl (80-96) 05/22/17 13:29 MCHC 32.8 g/dl (32.0-36.0) 05/22/17 13:29 RDW 14.4 % (11.6-15.6) 05/22/17 13:29 Plt Count 149 K/MM3 (134-434) 05/22/17 13:29 MPV 11.0 fl (7.5-11.1) 05/22/17 13:29 CMP Sodium 139 mmol/L (136-145) 05/26/17 06:30 Potassium 3.9 mmol/L (3.5-5.1) 05/26/17 06:30 Chloride 103 mmol/L (98-107) 05/26/17 06:30 Carbon Dioxide 24 mmol/L (21-32) 05/26/17 06:30 Anion Gap 12 (8-16) 05/26/17 06:30 BUN 16 mg/dL (7-18) 05/26/17 06:30 Creatinine 0.5 mg/dL (0.55-1.02) L 05/26/17 06:30 Creat Clearance w eGFR > 60 (>60) 05/26/17 06:30 Calcium 9.7 mg/dL (8.5-10.1) 05/26/17 06:30 Total Bilirubin 0.7 mg/dL (0.2-1.0) 05/26/17 06:30 AST 59 U/L (15-37) H 05/26/17 06:30 ALT 148 U/L (12-78) H 05/26/17 06:30 Alkaline Phosphatase 109 U/L (45-117) 05/26/17 06:30 Total Protein 6.2 g/dl (6.4-8.2) L 05/26/17 06:30 Albumin 3.1 g/dl (3.4-5.0) L 05/26/17 06:30 - RADIOLOGY CT head as reported MRI brain as reported Medical Decision Making 71 year old female, with reportedly no significant past medical history who presented to the emergency department reportedly accompanied by family members with signs of altered mental status for an unknown period of time. She completed a noncontrast head CT which did not show any acute changes. She was seen by psychiatry and has been put on Zyprexa and Lexapro Psych note reviewed Deemed not to have decision making capacity MRI brain with age related changes but no acute abnormalities Continued PO and IV hydration Plan for inpatient psych admission Neurologically stable and without focal deficits Agree with psych admission plan
--- NOTE | 2017-05-27 14:14 | PN ---
Physical Exam: SUBJECTIVE: Patient seen and examined. Still AAOx3, but paranoid, afraid that examiner will leave her, kept asking examiner not to leave. OBJECTIVE: Vital Signs Period Temp Pulse Resp BP Sys/Garrido Pulse Ox Last 24 Hr 97.8 F-98.4 F 74-81 16-18 118-137/58-77 96-97 GEN: Awake, alert, oriented to person, place, month, year, immediate memory recall intact, but noticeably paranoid HEENT: PERRLA, EOMi CV: S1, S2, RRR LUNG: CTABL ABD: Soft, NT, ND, normoactive BS MSK: Scattered excoriations along body NEURO: Difficult to assess, patient is still tangential in thoughts. But MSK and sensation intact. Active Medications Generic Name Dose Route Start Last Admin Trade Name Freq PRN Reason Stop Dose Admin Amino Acids 30 ml 05/26/17 08:00 05/27/17 08:35 Prosource No Carb Liquid Pkt PO 30 ml BID@0800,1730 [facility]JGAN Administration Escitalopram Oxalate 10 mg 05/27/17 10:00 05/27/17 09:36 Lexapro - PO 10 mg DAILY [facility]JGAN Administration Multivitamins/Minerals/Vitamin C 1 tab 05/26/17 10:00 05/27/17 09:36 Tab-A-Vit - PO 1 tab DAILY [facility] Administration Olanzapine 5 mg 05/18/17 22:00 05/26/17 21:05 Zyprexa - PO 5 mg HS [facility] Administration ASSESSMENT/PLAN: Ms Ramey is a 71yo F with no significant PMHx, no psychiatric history, who was brought to the ER by her sister due to gradual onset AMS after poor PO intake. Found to have significant hypernatremia of 155. # Acute on Chronic Encephalopathy - metabolic w/u neg, likely underlying psych condition exacerbated by stressors, MRI negative, Na+ corrected - Continue PM Zyprexa, involuntarily transfer to inpatient psych, papers signed, 1:1, awaiting bed, Dr. Story in agreement - Pt is on waiting list at [facility] in [place] # Transaminitis - no abd pain, hep panel negative, trending down, no concern # Hypernatremia improved, was due to poor PO intake on admission # Hypokalemia - will replete PRN, normal Mg level # FEN - No IVF, sodium controlled diet # PPx - Heparin SQ TID, PT ordered # Dispo Pt is medically stable for transfer to inpatient psych, calls made to psych facilities further, currently no beds available, pt is on waiting list at [facility] (Behavioral health coordinator at [facility] is Sin Mondragon - ), will give [facility] ctr number [id number] d/w Dr Uziel Matt MD - PGY1 Internal Medicine Visit type - Emergency Visit Emergency Visit: No - New Patient This patient is new to me today: No - Critical Care Critical Care patient: No - Discharge Referral Referred to [facility] Med P.C.: No
--- NOTE | 2017-05-27 16:24 | PN ---
Teaching Attending Note Name of Resident: Agapito Matt ATTENDING PHYSICIAN STATEMENT Time of evaluation: 10:30 AM I saw and evaluated the patient. I reviewed the resident's note and discussed the case with the resident. I agree with the resident's findings and plan as documented. SUBJECTIVE: Patient seen and examined. no complaints OBJECTIVE: Vital Signs Period Temp Pulse Resp BP Sys/Garrido Pulse Ox Last 24 Hr 97.8 F-98.2 F 74-85 16-18 99-137/57-77 96-97 Intake & Output 05/24/17 05/25/17 05/26/17 05/27/17 23:59 23:59 23:59 23:59 Intake Total 250 Balance 250 General: lying in bed in no acute distress Neuro AAOX3, paranoid, unchanged exam Active Medications Generic Name Dose Route Start Last Admin Trade Name Freq PRN Reason Stop Dose Admin Amino Acids 30 ml 05/26/17 08:00 05/27/17 08:35 Prosource No Carb Liquid Pkt PO 30 ml BID@0800,1730 [facility] Administration Escitalopram Oxalate 10 mg 05/27/17 10:00 05/27/17 09:36 Lexapro - PO 10 mg DAILY MOJGAN Administration Multivitamins/Minerals/Vitamin C 1 tab 05/26/17 10:00 05/27/17 09:36 Tab-A-Vit - PO 1 tab DAILY [facility]JGAN Administration Olanzapine 5 mg 05/18/17 22:00 05/26/17 21:05 Zyprexa - PO 5 mg HS [facility]JGAN Administration ASSESSMENT AND PLAN: 71 yo F with no significant medical history who presented to the ER with confusion and poor oral intake, found hypernatremic, later course complicated by abnormal LFts. -Major Depressive disorder with psychotic features/Paranoia -Encephalopathy -Hypovolumic hypernatremia -Acute transaminitis, likely medication induced from zyprexa -Hypokalemia, resolved -Leucocytosis, likely reactive/From hemoconcentration, resolved Plan: Psych/neurology input noted. MRI brain neg for acute concerns. Deemed to not have decision making capacity currently. Hypernatremia resolved. LFTs trending down, patient with no abdominal symptoms or new concerns. No additional inpatient medical work up warranted at this time, ok to be transferred to inpatient psychiatry facility with interval liver function monitoring. Discuss with CM and accepting facility. Anticipate d/c when arranged.
[2017-05-27] MEDS: OLANZapine 5 MG TABLET PO SCH (21:02)
--- NOTE | 2017-05-28 08:06 | PN ---
Physical Exam: SUBJECTIVE: Patient seen and examined. Still paranoid. Denies fevers, chills, CP , SOB. OBJECTIVE: Vital Signs Period Temp Pulse Resp BP Sys/Garrido Pulse Ox Last 24 Hr 96.8 F-98.2 F 70-85 16-20 99-119/54-77 96-96 GEN: Awake, alert, oriented to person, place, month, year, immediate memory recall intact, but noticeably paranoid HEENT: PERRLA, EOMi CV: S1, S2, RRR LUNG: CTABL ABD: Soft, NT, ND, normoactive BS MSK: Scattered excoriations along body NEURO: Difficult to assess, patient is still tangential in thoughts. But MSK and sensation intact. Active Medications Generic Name Dose Route Start Last Admin Trade Name Freq PRN Reason Stop Dose Admin Amino Acids 30 ml 05/26/17 08:00 05/27/17 18:24 Prosource No Carb Liquid Pkt PO 30 ml BID@0800,1730 MOJGAN Administration Escitalopram Oxalate 10 mg 05/27/17 10:00 05/27/17 09:36 Lexapro - PO 10 mg DAILY [facility] Administration Multivitamins/Minerals/Vitamin C 1 tab 05/26/17 10:00 05/27/17 09:36 Tab-A-Vit - PO 1 tab DAILY [facility]JGAN Administration Olanzapine 5 mg 05/18/17 22:00 05/27/17 21:02 Zyprexa - PO 5 mg HS [facility] Administration ASSESSMENT/PLAN: Ms Ramey is a 71yo F with no significant PMHx, no psychiatric history, who was brought to the ER by her sister due to gradual onset AMS after poor PO intake. Found to have significant hypernatremia of 155. # Acute on Chronic Encephalopathy - metabolic w/u neg, likely underlying psych condition exacerbated by stressors, MRI negative, Na+ corrected - Continue PM Zyprexa, involuntarily transfer to inpatient psych, papers signed, 1:1, awaiting bed, Dr. Story in agreement - Pt is on waiting list at multiple facilities # Transaminitis - no abd pain, hep panel negative, trending down, no concern # Hypernatremia improved, was due to poor PO intake on admission # Hypokalemia - resolved, will replete PRN, normal Mg level # FEN - No IVF, sodium controlled diet # PPx - Heparin SQ TID, PT ordered # Dispo Pt is medically stable, continuing to fill out paperwork for transfer for inpatient psych. will d/w Dr Uziel Matt MD - PGY1 Internal Medicine Visit type - Emergency Visit Emergency Visit: No - New Patient This patient is new to me today: No - Critical Care Critical Care patient: No - Discharge Referral Referred to [facility] Med P.C.: No
[2017-05-28] MEDS: AMINO ACIDS/PROTEIN HYDROLYS 30 ML LIQUID.PKT PO SCH ×2 (08:19→17:09)
[2017-05-28] MEDS: MULTIVITAMINS (DAILY MVI) TABLET (FP) PO SCH (10:17)
[2017-05-28] MEDS: ESCITALOPRAM OXALATE 10 MG TABLET (FP) PO SCH (10:17)
--- NOTE | 2017-05-28 10:52 | PN ---
Progress Note (short form) - Note Progress Note: Neurology History of Present Illness The patient is a 71 year old female, with reportedly no significant past medical history who presented to the emergency department reportedly accompanied by family members with signs of altered mental status for an unknown period of time. As per sister who arrived to the patients home from [place] n day of admission, the patient was found to be increasingly confused and with multiple lesions to the head, feet, and other extremities. Sister reports patient was able to recognize her and open the door. Family reports the patient lives at home with her brother. As per brother, patient visited her father at the hospital 1 week ago, and since then she has not wanted to leave the house, has been pulling her hair out, missing meals, and not bathing. Family states patient has been under a lot of stress over the past 6 months, as she has been hypervigilant over her father who has been at a [facility]pc facility. The patient's brother reported she has had multiple episodes of urinary incontinence and she has complained of dysuria. Patient states the words are not making sense. the patient was admitted for further evaluation and management. She completed a noncontrast head CT which did not show any acute changes. During my evaluation, she was minimally verbal but more alert and cooperative today. Seen by neuropsychologist who deemed patient does not have capacity. Also noted auditory hallucinations. Unclear if recent stressors may have but will evaluate for any organic etiology and MRI brain completed and reviewed in detail without significant structural abnormalities. Continues to be paranoid and disorganized despite being on Zyprexa, Lexapro also added. Plan is for inpatient psych admission as she continues to have auditory hallucinations. Awaiting for bed and team has been calling facilities. Spoke to nurse this AM and patient remains on 1:1 for safety. Active Medications Amino Acids (Prosource No Carb Liquid Pkt) 30 ml PO BID@0800,1730 [facility] Last Admin: 05/28/17 08:19 Dose: 30 ml Escitalopram Oxalate (Lexapro -) 10 mg PO DAILY [facility] Last Admin: 05/28/17 10:17 Dose: 10 mg Multivitamins/Minerals/Vitamin C (Tab-A-Vit -) 1 tab PO DAILY [facility] Last Admin: 05/28/17 10:17 Dose: 1 tab Olanzapine (Zyprexa -) 5 mg PO HS [facility] Last Admin: 05/27/17 21:02 Dose: 5 mg *Physical Exam Vital Signs Period Temp Pulse Resp BP Sys/Garrido Pulse Ox Last 24 Hr 96.8 F-98.2 F 70-85 16-20 99-119/54-70 96 CONSTITUTIONAL: Awake and alert; confused, disheveled, in no apparent distress HEAD: Normocephalic; atraumatic; + numerous excoriated circular lesions to the scalp; EYES: PERRL; EOM intact; no photophobia ENMT: External appears normal; mm-dry NECK: Supple; non-tender; no cervical lymphadenopathy; CARD: Normal S1, S2; no murmurs, rubs, or gallops RESP: Normal chest excursion with respiration; breath sounds clear and equal bilaterally; no wheezes, rhonchi, or rales ABD: Soft, non-distended; non-tender; no palpable organomegaly, no palpable hernias EXT: Normal ROM in all four extremities; non-tender to palpation; distal pulses intact SKIN: Warm, dry, + numerous circular (approximately 0.5 cm in diameter), excoriated lesions to upper chest, upper and mid back and lower extremities; NEURO: Patient oriented to self and place only; hearing voices, confused to date ; uncooperative, moving all extremities symmetrically, gait-deferred; CBCD WBC 7.3 K/mm3 (4.0-10.0) 05/22/17 13:29 RBC 4.64 M/mm3 (3.60-5.2) 05/22/17 13:29 Hgb 13.4 GM/dL (10.7-15.3) 05/22/17 13:29 Hct 40.8 % (32.4-45.2) 05/22/17 13:29 MCV 88.0 fl (80-96) 05/22/17 13:29 MCHC 32.8 g/dl (32.0-36.0) 05/22/17 13:29 RDW 14.4 % (11.6-15.6) 05/22/17 13:29 Plt Count 149 K/MM3 (134-434) 05/22/17 13:29 MPV 11.0 fl (7.5-11.1) 05/22/17 13:29 CMP Sodium 139 mmol/L (136-145) 05/26/17 06:30 Potassium 3.9 mmol/L (3.5-5.1) 05/26/17 06:30 Chloride 103 mmol/L (98-107) 05/26/17 06:30 Carbon Dioxide 24 mmol/L (21-32) 05/26/17 06:30 Anion Gap 12 (8-16) 05/26/17 06:30 BUN 16 mg/dL (7-18) 05/26/17 06:30 Creatinine 0.5 mg/dL (0.55-1.02) L 05/26/17 06:30 Creat Clearance w eGFR > 60 (>60) 05/26/17 06:30 Calcium 9.7 mg/dL (8.5-10.1) 05/26/17 06:30 Total Bilirubin 0.7 mg/dL (0.2-1.0) 05/26/17 06:30 AST 59 U/L (15-37) H 05/26/17 06:30 ALT 148 U/L (12-78) H 05/26/17 06:30 Alkaline Phosphatase 109 U/L (45-117) 05/26/17 06:30 Total Protein 6.2 g/dl (6.4-8.2) L 05/26/17 06:30 Albumin 3.1 g/dl (3.4-5.0) L 05/26/17 06:30 - RADIOLOGY CT head as reported MRI brain as reported Medical Decision Making 71 year old female, with reportedly no significant past medical history who presented to the emergency department reportedly accompanied by family members with signs of altered mental status for an unknown period of time. She completed a noncontrast head CT which did not show any acute changes. She was seen by psychiatry and has been put on Zyprexa and Lexapro Psych note reviewed Deemed not to have decision making capacity MRI brain with age related changes but no acute abnormalities Continued PO and IV hydration Plan for inpatient psych admission Neurologically stable and without focal deficits Agree with psych admission plan Awaiting bed at a facility Continue 1:1 monitoring for safety
--- NOTE | 2017-05-28 12:51 | PN ---
Teaching Attending Note Name of Resident: Agapito Matt ATTENDING PHYSICIAN STATEMENT Time of evaluation: 10:00 AM I saw and evaluated the patient. I reviewed the resident's note and discussed the case with the resident. I agree with the resident's findings and plan as documented. SUBJECTIVE: Patient seen and examined. no complaints. Still with paranoia. OBJECTIVE: Vital Signs Period Temp Pulse Resp BP Sys/Garrido Pulse Ox Last 24 Hr 96.8 F-98.4 F 70-85 16-20 99-119/52-70 96 Intake & Output 05/25/17 05/26/17 05/27/17 05/28/17 23:59 23:59 23:59 23:59 Intake Total 250 50 Balance 250 50 General: lying in bed in no acute distress CVS: S1S2 regular Chest: CTAB, no rales or wheezing extremities: no edema Active Medications Generic Name Dose Route Start Last Admin Trade Name Freq PRN Reason Stop Dose Admin Amino Acids 30 ml 05/26/17 08:00 05/28/17 08:19 Prosource No Carb Liquid Pkt PO 30 ml BID@0800,1730 [facility] Administration Escitalopram Oxalate 10 mg 05/27/17 10:00 05/28/17 10:17 Lexapro - PO 10 mg DAILY [facility] Administration Multivitamins/Minerals/Vitamin C 1 tab 05/26/17 10:00 05/28/17 10:17 Tab-A-Vit - PO 1 tab DAILY [facility] Administration Olanzapine 5 mg 05/18/17 22:00 05/27/17 21:02 Zyprexa - PO 5 mg HS [facility] Administration ASSESSMENT AND PLAN: 71 yo F with no significant medical history who presented to the ER with confusion and poor oral intake, found hypernatremic, later course complicated by abnormal LFts. -Major Depressive disorder with psychotic features/Paranoia -Encephalopathy -Hypovolumic hypernatremia -Acute transaminitis, likely medication induced from zyprexa -Hypokalemia, resolved -Leucocytosis, likely reactive/From hemoconcentration, resolved Plan: Psych/neurology input noted. MRI brain neg for acute concerns. Deemed to not have decision making capacity currently. Hypernatremia resolved. LFTs trending down, patient with no abdominal symptoms or new concerns. No additional inpatient medical work up warranted at this time, ok to be transferred to inpatient psychiatry facility with interval liver function monitoring. Discuss with CM and accepting facility. Anticipate d/c when arranged.
--- NOTE | 2017-05-28 18:11 | PN ---
Progress Note (short form) - Note Progress Note: Psychotic thinking and behaviour persists. Medically stable but unable to obtain In Patient psych beds. There appears to be an acute shortage of Psych beds. Patient continues to display. severe thought disorder. Plan: 1) Continue 1:1 2[facility] Plan to transfer to In Patient Psych [facility].
[2017-05-28] MEDS ORDERED: PT OWN MED DRAWER 7, Y5N ONE (20:36)
[2017-05-28] MEDS: OLANZapine 5 MG TABLET PO SCH (21:09)
--- NOTE | 2017-05-29 08:07 | PN ---
Physical Exam: SUBJECTIVE: Patient seen and examined. Pt still paranoid. Still AAOx3. Ate well last night, stated she refused blood draw because the needle was too long, after conversation, pt is agreeable this AM. OBJECTIVE: Vital Signs Period Temp Pulse Resp BP Sys/Agrrido Pulse Ox Last 24 Hr 98.0 F-98.2 F 66-84 16-20 110-146/68-76 96 GEN: AAOx3 immediate memory recall intact, still paranoid HEENT: PERRLA, EOMi CV: S1, S2, RRR LUNG: CTABL ABD: Soft, NT, ND, normoactive BS MSK: Scattered excoriations along body NEURO: Difficult to assess, patient is still tangential in thoughts. But MSK and sensation intact. Laboratory Last Values WBC 7.3 K/mm3 (4.0-10.0) 05/22/17 13:29 RBC 4.64 M/mm3 (3.60-5.2) 05/22/17 13:29 Hgb 13.4 GM/dL (10.7-15.3) 05/22/17 13:29 Hct 40.8 % (32.4-45.2) 05/22/17 13:29 MCV 88.0 fl (80-96) 05/22/17 13:29 MCH 28.8 pg (25.7-33.7) 05/22/17 13:29 MCHC 32.8 g/dl (32.0-36.0) 05/22/17 13:29 RDW 14.4 % (11.6-15.6) 05/22/17 13:29 Plt Count 149 K/MM3 (134-434) 05/22/17 13:29 MPV 11.0 fl (7.5-11.1) 05/22/17 13:29 Neutrophils % 45.6 % (42.8-82.8) D 05/22/17 13:29 Lymphocytes % 39.3 % (8-40) D 05/22/17 13:29 Monocytes % 11.4 % (3.8-10.2) H 05/22/17 13:29 Eosinophils % 2.8 % (0-4.5) 05/22/17 13:29 Basophils % 0.9 % (0-2.0) 05/22/17 13:29 RBC Morphology 05/22/17 13:29 PT with INR 13.30 SEC (9.98-11.88) H 05/16/17 18:00 INR 1.18 (0.82-1.09) H 05/16/17 18:00 Sodium 139 mmol/L (136-145) 05/26/17 06:30 Potassium 3.9 mmol/L (3.5-5.1) 05/26/17 06:30 Chloride 103 mmol/L (98-107) 05/26/17 06:30 Carbon Dioxide 24 mmol/L (21-32) 05/26/17 06:30 Anion Gap 12 (8-16) 05/26/17 06:30 BUN 16 mg/dL (7-18) 05/26/17 06:30 Creatinine 0.5 mg/dL (0.55-1.02) L 05/26/17 06:30 Creat Clearance w eGFR > 60 (>60) 05/26/17 06:30 Random Glucose 88 mg/dL (74-106) 05/26/17 06:30 POC Glucometer 105 UNITS (80-120) 05/28/17 21:21 Calcium 9.7 mg/dL (8.5-10.1) 05/26/17 06:30 Magnesium 2.2 mg/dL (1.8-2.4) 05/25/17 07:00 Total Bilirubin 0.7 mg/dL (0.2-1.0) 05/26/17 06:30 Direct Bilirubin 0.2 mg/dL (0.0-0.2) 05/22/17 07:00 AST 59 U/L (15-37) H 05/26/17 06:30 ALT 148 U/L (12-78) H 05/26/17 06:30 Alkaline Phosphatase 109 U/L (45-117) 05/26/17 06:30 Ammonia 12.16 umol/L (11-32) 05/16/17 18:00 Creatine Kinase 22 IU/L (26-192) L 05/25/17 07:00 Troponin I < 0.02 ng/ml (0.00-0.05) 05/16/17 18:00 Total Protein 6.2 g/dl (6.4-8.2) L 05/26/17 06:30 Albumin 3.1 g/dl (3.4-5.0) L 05/26/17 06:30 Urine Color Isi 05/16/17 19:52 Urine Appearance Slcloudy 05/16/17 19:52 Urine pH 5.0 (5.0-8.0) 05/16/17 19:52 Ur Specific [place] 1.025 (1.005-1.025) 05/16/17 19:52 Urine Protein 1+ (NEGATIVE) H 05/16/17 19:52 Urine Glucose (UA) 1+ (NEGATIVE) H 05/16/17 19:52 Urine Ketones Trace (NEGATIVE) H 05/16/17 19:52 Urine Blood Negative (NEGATIVE) 05/16/17 19:52 Urine Nitrite Negative (NEGATIVE) 05/16/17 19:52 Urine Bilirubin Negative (NEGATIVE) 05/16/17 19:52 Urine Urobilinogen 2.0 mg/dL (0.2-1.0) H 05/16/17 19:52 Ur Leukocyte Esterase Negative (NEGATIVE) 05/16/17 19:52 Urine RBC 1 /hpf (0-3) 05/16/17 19:52 Urine WBC 4 /hpf (3-5) 05/16/17 19:52 Ur Epithelial Cells Rare /hpf (FEW) 05/16/17 19:52 Urine Bacteria Rare /hpf (NONE SEEN) 05/16/17 19:52 Hyaline Casts 9 /lpf 05/16/17 19:52 Urine Mucus Few 05/16/17 19:52 Urine Osmolality 1208 mosm/kg (300-900) H 05/16/17 23:37 Ur Random Sodium 223 MMOL/L 05/16/17 23:37 Salicylates < 4.0 mg/dl (0.0-30.0) 05/16/17 18:00 Opiates Screen Negative ng/ml (TBTVXJ=368) 05/16/17 18:00 Methadone Screen Negative ng/ml (XIZEGW=188) 05/16/17 18:00 Acetaminophen < 2.0 ug/ml (10.0-30.0) L 05/16/17 18:00 Barbiturate Screen Negative ng/ml (XNFFGG=961) 05/16/17 18:00 Phencyclidine Screen Negative ng/ml (CUTOFF=25) 05/16/17 18:00 Ur Amphetamines Screen Negative ng/ml (ODTRYB=775) 05/16/17 18:00 MDMA (Ecstasy) Screen Negative ng/ml (OMIISL=401) 05/16/17 18:00 Benzodiazepines Screen Negative ng/ml (ZZQGNN=466) 05/16/17 18:00 Cocaine Screen Negative ng/ml (NHBHZK=483) 05/16/17 18:00 U Marijuana (THC) Screen Negative ng/ml (CUTOFF=50) 05/16/17 18:00 Alcohol, Quantitative < 5.0 mg/dl (0-5) 05/16/17 18:00 Hepatitis A IgM Ab Negative (Negative) 05/24/17 07:54 Hep Bs Antigen Negative (Negative) 05/24/17 07:54 Hep B Core IgM Ab Negative (Negative) 05/24/17 07:54 Hepatitis C Ab (EIA) <0.1 s/co ratio (0.0-0.9) 05/24/17 07:54 Active Medications Generic Name Dose Route Start Last Admin Trade Name Markusq PRN Reason Stop Dose Admin Amino Acids 30 ml 05/26/17 08:00 05/28/17 17:09 Prosource No Carb Liquid Pkt PO 30 ml BID@0800,1730 [facility] Administration Escitalopram Oxalate 10 mg 05/27/17 10:00 05/28/17 10:17 Lexapro - PO 10 mg DAILY [facility] Administration Multivitamins/Minerals/Vitamin C 1 tab 05/26/17 10:00 05/28/17 10:17 Tab-A-Vit - PO 1 tab DAILY [facility] Administration Olanzapine 2.5 mg 05/29/17 22:00 Zyprexa - PO HS [facility] ASSESSMENT/PLAN: Ms Ramey is a 71yo F with no significant PMHx, no psychiatric history, who was brought to the ER by her sister due to gradual onset AMS after poor PO intake. Found to have significant hypernatremia of 155. # Acute on Chronic Encephalopathy - metabolic w/u neg, likely underlying psych condition exacerbated by stressors, MRI negative, Na+ corrected - Decreased Zyprexa to 2.5mg QD, Lexapro 10mg daily, involuntarily transfer to inpatient psych, papers signed, 1:1, awaiting bed, Dr. Story in agreement - Pt is on waiting list at multiple facilities # Transaminitis - no abd pain, hep panel negative, will get repeat LFTs today to assess trend # Hypernatremia improved, was due to poor PO intake on admission # Hypokalemia - resolved, will replete PRN, normal Mg level # FEN - No IVF, sodium controlled diet # PPx - Heparin SQ TID, PT ordered # Dispo Pt is medically stable, continuing to fill out paperwork for transfer for inpatient psych d/w Dr Uziel Matt MD - PGY1 Internal Medicine Visit type - Emergency Visit Emergency Visit: No - New Patient This patient is new to me today: No - Critical Care Critical Care patient: No - Discharge Referral Referred to [facility] Med P.C.: No
[2017-05-29] MEDS: AMINO ACIDS/PROTEIN HYDROLYS 30 ML LIQUID.PKT PO SCH ×2 (08:14→17:48)
[2017-05-29 08:54] LABS: ALBUMIN 3.2 g/dl (3.4-5.0); BILIRUBIN,DIRECT 0.3 mg/dL (0.0-0.2); BILIRUBIN,TOTAL 0.8 mg/dL (0.2-1.0); TOT PROT 6.3 g/dl (6.4-8.2)
--- NOTE | 2017-05-29 09:42 | PN ---
Progress Note (short form) - Note Progress Note: Neurology History of Present Illness The patient is a 71 year old female, with reportedly no significant past medical history who presented to the emergency department reportedly accompanied by family members with signs of altered mental status for an unknown period of time. As per sister who arrived to the patients home from [place] n day of admission, the patient was found to be increasingly confused and with multiple lesions to the head, feet, and other extremities. Sister reports patient was able to recognize her and open the door. Family reports the patient lives at home with her brother. As per brother, patient visited her father at the hospital 1 week ago, and since then she has not wanted to leave the house, has been pulling her hair out, missing meals, and not bathing. Family states patient has been under a lot of stress over the past 6 months, as she has been hypervigilant over her father who has been at [facility]. The patient's brother reported she has had multiple episodes of urinary incontinence and she has complained of dysuria. Patient states the words are not making sense. the patient was admitted for further evaluation and management. She completed a noncontrast head CT which did not show any acute changes. During my evaluation, she was minimally verbal but more alert and cooperative today. Seen by neuropsychologist who deemed patient does not have capacity. Also noted auditory hallucinations. Unclear if recent stressors may have but will evaluate for any organic etiology and MRI brain completed and reviewed in detail without significant structural abnormalities. Continues to be paranoid and disorganized despite being on Zyprexa, Lexapro also added. Plan is for inpatient involuntary psych admission as she continues to have auditory hallucinations. Awaiting for bed and team has been calling facilities. Spoke to nurse this AM and patient remains on 1:1. Active Medications Amino Acids (Prosource No Carb Liquid Pkt) 30 ml PO BID@0800,1730 [facility] Last Admin: 05/28/17 17:09 Dose: 30 ml Escitalopram Oxalate (Lexapro -) 10 mg PO DAILY [facility] Last Admin: 05/28/17 10:17 Dose: 10 mg Multivitamins/Minerals/Vitamin C (Tab-A-Vit -) 1 tab PO DAILY [facility] Last Admin: 05/28/17 10:17 Dose: 1 tab Olanzapine (Zyprexa -) 2.5 mg PO HS [facility] *Physical Exam Vital Signs Period Temp Pulse Resp BP Sys/Garrido Pulse Ox Last 24 Hr 98.0 F-98.2 F 66-84 16-20 110-146/68-76 96 CONSTITUTIONAL: Awake and alert; confused, disheveled, in no apparent distress HEAD: Normocephalic; atraumatic; + numerous excoriated circular lesions to the scalp; EYES: PERRL; EOM intact; no photophobia ENMT: External appears normal; mm-dry NECK: Supple; non-tender; no cervical lymphadenopathy; CARD: Normal S1, S2; no murmurs, rubs, or gallops RESP: Normal chest excursion with respiration; breath sounds clear and equal bilaterally; no wheezes, rhonchi, or rales ABD: Soft, non-distended; non-tender; no palpable organomegaly, no palpable hernias EXT: Normal ROM in all four extremities; non-tender to palpation; distal pulses intact SKIN: Warm, dry, + numerous circular (approximately 0.5 cm in diameter), excoriated lesions to upper chest, upper and mid back and lower extremities; NEURO: Patient oriented to self and place only; hearing voices, confused to date ; uncooperative, moving all extremities symmetrically, gait-deferred; CBCD WBC 7.3 K/mm3 (4.0-10.0) 05/22/17 13:29 RBC 4.64 M/mm3 (3.60-5.2) 05/22/17 13:29 Hgb 13.4 GM/dL (10.7-15.3) 05/22/17 13:29 Hct 40.8 % (32.4-45.2) 05/22/17 13:29 MCV 88.0 fl (80-96) 05/22/17 13:29 MCHC 32.8 g/dl (32.0-36.0) 05/22/17 13:29 RDW 14.4 % (11.6-15.6) 05/22/17 13:29 Plt Count 149 K/MM3 (134-434) 05/22/17 13:29 MPV 11.0 fl (7.5-11.1) 05/22/17 13:29 CMP Sodium 139 mmol/L (136-145) 05/26/17 06:30 Potassium 3.9 mmol/L (3.5-5.1) 05/26/17 06:30 Chloride 103 mmol/L (98-107) 05/26/17 06:30 Carbon Dioxide 24 mmol/L (21-32) 05/26/17 06:30 Anion Gap 12 (8-16) 05/26/17 06:30 BUN 16 mg/dL (7-18) 05/26/17 06:30 Creatinine 0.5 mg/dL (0.55-1.02) L 05/26/17 06:30 Creat Clearance w eGFR > 60 (>60) 05/26/17 06:30 Calcium 9.7 mg/dL (8.5-10.1) 05/26/17 06:30 Total Bilirubin 0.8 mg/dL (0.2-1.0) 05/29/17 07:40 AST 38 U/L (15-37) H D 05/29/17 07:40 ALT 99 U/L (12-78) H D 05/29/17 07:40 Alkaline Phosphatase 104 U/L (45-117) 05/29/17 07:40 Total Protein 6.3 g/dl (6.4-8.2) L 05/29/17 07:40 Albumin 3.2 g/dl (3.4-5.0) L 05/29/17 07:40 - RADIOLOGY CT head as reported MRI brain as reported Medical Decision Making 71 year old female, with reportedly no significant past medical history who presented to the emergency department reportedly accompanied by family members with signs of altered mental status for an unknown period of time. She completed a noncontrast head CT which did not show any acute changes. She was seen by psychiatry and has been put on Zyprexa and Lexapro Psych note reviewed Deemed not to have decision making capacity MRI brain with age related changes but no acute abnormalities and mild volume loss that is expected for age Continued PO and IV hydration Plan for inpatient psych admission Neurologically stable and without focal deficits Agree with psych admission plan Awaiting bed at a facility Continue 1:1 monitoring for safety No further rec'd at this time
[2017-05-29] MEDS: MULTIVITAMINS (DAILY MVI) TABLET (FP) PO SCH (10:14)
[2017-05-29] MEDS: ESCITALOPRAM OXALATE 10 MG TABLET (FP) PO SCH (10:14)
--- NOTE | 2017-05-29 17:42 | PN ---
Teaching Attending Note Name of Resident: Agapito Matt ATTENDING PHYSICIAN STATEMENT Time of evaluation: 10:46 AM I saw and evaluated the patient. I reviewed the resident's note and discussed the case with the resident. I agree with the resident's findings and plan as documented. SUBJECTIVE: no complaints. OBJECTIVE: Vital Signs Period Temp Pulse Resp BP Sys/Garrido Pulse Ox Last 24 Hr 98.0 F-98.2 F 64-74 16-18 123-130/65-70 96-96 Intake & Output 05/26/17 05/27/17 05/28/17 05/29/17 23:59 23:59 23:59 23:59 Intake Total 50 60 570 Balance 50 60 570 ASSESSMENT AND PLAN: 71 yo F with no significant medical history who presented to the ER with confusion and poor oral intake, found hypernatremic, later course complicated by abnormal LFts. -Major Depressive disorder with psychotic features/Paranoia -Encephalopathy -Hypovolumic hypernatremia -Acute transaminitis, likely medication induced from zyprexa -Hypokalemia, resolved -Leucocytosis, likely reactive/From hemoconcentration, resolved Plan: Psych/neurology input noted. MRI brain neg for acute concerns. Deemed to not have decision making capacity currently. Hypernatremia resolved. LFts almost normalized. Zyprexa dose decreased, no new concerns. Medically ok to be transferred to psychiatric facility for further care. No ongoing concerns. Discuss with CM and accepting facility. Anticipate d/c when arranged.
[2017-05-29] MEDS: OLANZapine 2.5 MG TABLET PO SCH (21:08)
[2017-05-30] MEDS: AMINO ACIDS/PROTEIN HYDROLYS 30 ML LIQUID.PKT PO SCH ×2 (08:26→17:06)
[2017-05-30] MEDS: MULTIVITAMINS (DAILY MVI) TABLET (FP) PO SCH (10:03)
[2017-05-30] MEDS: ESCITALOPRAM OXALATE 10 MG TABLET (FP) PO SCH (10:03)
--- NOTE | 2017-05-30 11:25 | PN ---
Teaching Attending Note Name of Resident: Teja Munoz ATTENDING PHYSICIAN STATEMENT Time of evaluation: 9:10 AM I saw and evaluated the patient. I reviewed the resident's note and discussed the case with the resident. I agree with the resident's findings and plan as documented. SUBJECTIVE: Patient seen and examined. feels nauseous but no other complaints. OBJECTIVE: Vital Signs Period Temp Pulse Resp BP Sys/Garrido Pulse Ox Last 24 Hr 97.6 F-98.2 F 64-93 16-20 117-151/58-81 96 Intake & Output 05/27/17 05/28/17 05/29/17 05/30/17 23:59 23:59 23:59 23:59 Intake Total 50 60 720 Balance 50 60 720 General: sitting in bed in no acute distress CVS: S1s2 regular Chest CTAB, no rales or wheezing abdomen: soft, NT, ND, positive bowel sounds ASSESSMENT AND PLAN: 71 yo F with no significant medical history who presented to the ER with confusion and poor oral intake, found hypernatremic, later course complicated by abnormal LFts. -Major Depressive disorder with psychotic features/Paranoia -Encephalopathy -Hypovolumic hypernatremia -Acute transaminitis, likely medication induced from zyprexa -Hypokalemia, resolved -Leucocytosis, likely reactive/From hemoconcentration, resolved Plan: Psych/neurology input noted. MRI brain neg for acute concerns. Deemed to not have decision making capacity currently. Hypernatremia resolved. LFts almost normalized. Zyprexa dose decreased, started on lexapro, no new concerns. Medically ok to be transferred to psychiatric facility for further care. No ongoing concerns. Discuss with CM and accepting facility. Anticipate d/c when arranged
[2017-05-30] MEDS: OLANZapine 2.5 MG TABLET PO SCH (22:39)
[2017-05-31] MEDS: ESCITALOPRAM OXALATE 10 MG TABLET (FP) PO SCH (09:07)
[2017-05-31] MEDS: AMINO ACIDS/PROTEIN HYDROLYS 30 ML LIQUID.PKT PO SCH ×2 (09:07→17:29)
[2017-05-31] MEDS: MULTIVITAMINS (DAILY MVI) TABLET (FP) PO SCH (09:07)
--- NOTE | 2017-05-31 12:09 | PN ---
Teaching Attending Note Name of Resident: . ATTENDING PHYSICIAN STATEMENT Time of evaluation: 9:20 AM I saw and evaluated the patient. I reviewed the resident's note and discussed the case with the resident. I agree with the resident's findings and plan as documented. SUBJECTIVE: Patoent seen and examined. NO complaints. OBJECTIVE: Vital Signs Period Temp Pulse Resp BP Sys/Garrido Pulse Ox Last 24 Hr 97.9 F-98.3 F 69-80 16-20 101-123/56-69 95 Intake & Output 05/28/17 05/29/17 05/30/17 05/31/17 23:59 23:59 23:59 23:59 Intake Total 60 720 Output Total 200 Balance 60 720 -200 General: sitting in bed in no acute distress CVS: S1S2 regular Chest: CTAB, no rales or wheezing abdomen: soft, NT, ND, positive bowel sounds extremities: no edema Active Medications Generic Name Dose Route Start Last Admin Trade Name Freq PRN Reason Stop Dose Admin Amino Acids 30 ml 05/26/17 08:00 05/31/17 09:07 Prosource No Carb Liquid Pkt PO 30 ml BID@0800,1730 MOJGAN Administration Escitalopram Oxalate 10 mg 05/27/17 10:00 05/31/17 09:07 Lexapro - PO 10 mg DAILY MOJGAN Administration Multivitamins/Minerals/Vitamin C 1 tab 05/26/17 10:00 05/31/17 09:07 Tab-A-Vit - PO 1 tab DAILY MOJGAN Administration Olanzapine 2.5 mg 05/29/17 22:00 05/30/17 22:39 Zyprexa - PO 2.5 mg HS MOJGAN Administration Microbiology 05/16/17 19:52 Urine - Urine - Catheterized Urine Culture - Final NO GROWTH OBTAINED Laboratory Results - last 24 hr 05/30/17 16:40 POC Glucometer 88 ASSESSMENT AND PLAN: 71 yo F with no significant medical history who presented to the ER with confusion and poor oral intake, found hypernatremic, later course complicated by abnormal LFts. -Major Depressive disorder with psychotic features/Paranoia -Encephalopathy -Hypovolumic hypernatremia -Acute transaminitis, likely medication induced from zyprexa -Hypokalemia, resolved -Leucocytosis, likely reactive/From hemoconcentration, resolved Plan: Psych/neurology input noted. MRI brain neg for acute concerns. Deemed to not have decision making capacity currently. Hypernatremia resolved. LFts almost normalized. Zyprexa dose decreased, started on lexapro, no new concerns. Medically ok to be transferred to psychiatric facility for further care. No ongoing concerns. Discuss with CM and accepting facility. Anticipate d/c when arranged
[2017-05-31] MEDS: OLANZapine 2.5 MG TABLET PO SCH (22:31)
--- NOTE | 2017-06-01 07:53 | PN ---
Physical Exam: SUBJECTIVE: Patient seen and examined. Continues to be paranoid stating that she is "in trouble". Oriented to self, place, month, and year but states it "could be a different year". OBJECTIVE: Vital Signs Period Temp Pulse Resp BP Sys/Garrido Pulse Ox Last 24 Hr 97.8 F-98.6 F 56-84 16-20 110-144/53-75 GEN: AAOx3 immediate memory recall intact, still paranoid HEENT: PERRLA, EOMi CV: S1, S2, RRR LUNG: CTABL ABD: Soft, NT, ND, normoactive BS MSK: Scattered excoriations along body NEURO: Difficult to assess, patient is still tangential in thoughts. But MSK and sensation intact. Active Medications Generic Name Dose Route Start Last Admin Trade Name Freq PRN Reason Stop Dose Admin Amino Acids 30 ml 05/26/17 08:00 05/31/17 17:29 Prosource No Carb Liquid Pkt PO Not Given BID@0800,1730 MOJGAN Escitalopram Oxalate 10 mg 05/27/17 10:00 05/31/17 09:07 Lexapro - PO 10 mg DAILY MOJGAN Administration Multivitamins/Minerals/Vitamin C 1 tab 05/26/17 10:00 05/31/17 09:07 Tab-A-Vit - PO 1 tab DAILY MOJGAN Administration Olanzapine 2.5 mg 05/29/17 22:00 05/31/17 22:31 Zyprexa - PO 2.5 mg HS MOJGAN Administration ASSESSMENT/PLAN: Ms Ramey is a 71yo F with no significant PMHx, no psychiatric history, who was brought to the ER by her sister due to gradual onset AMS after poor PO intake. Found to have significant hypernatremia of 155. # Acute on Chronic Encephalopathy - metabolic w/u neg, likely underlying psych condition exacerbated by stressors, MRI negative, Na+ corrected - Decreased Zyprexa to 2.5mg QD, Lexapro 10mg daily, involuntarily transfer to inpatient psych, papers signed, 1:1, awaiting bed, Dr. Story in agreement - Pt is on waiting list at multiple facilities # Transaminitis - no abd pain, hep panel negative, will get repeat LFTs today to assess trend # Hypernatremia improved, was due to poor PO intake on admission # Hypokalemia - resolved, will replete PRN, normal Mg level # FEN - No IVF, sodium controlled diet # PPx - Heparin SQ TID, PT ordered # Dispo Pt is medically stable, continuing to fill out paperwork for transfer for inpatient psych d/w Dr Uziel Matt MD - PGY1 Internal Medicine Visit type - Emergency Visit Emergency Visit: No - New Patient This patient is new to me today: No - Critical Care Critical Care patient: No - Discharge Referral Referred to [facility] Med P.C.: No
--- NOTE | 2017-06-01 08:00 | PN ---
Teaching Attending Note Name of Resident: Agapito Matt ATTENDING PHYSICIAN STATEMENT Time of evaluation: 10:45 AM I saw and evaluated the patient. I reviewed the resident's note and discussed the case with the resident. I agree with the resident's findings and plan as documented. SUBJECTIVE: Patient seen and examined. Remains paranoid "I'm never getting out of here". No other complaints. OBJECTIVE: Vital Signs Period Temp Pulse Resp BP Sys/Garrido Pulse Ox Last 24 Hr 97.8 F-98.6 F 56-84 16-20 110-144/53-75 Intake & Output 05/29/17 05/30/17 05/31/17 06/01/17 23:59 23:59 23:59 23:59 Intake Total 720 150 Output Total 200 Balance 720 -200 150 General: lying in bed in no acute distress Chest CTAB Abdomen soft, NT, ND, positive bowel sounds extremities: no edema Active Medications Generic Name Dose Route Start Last Admin Trade Name Freq PRN Reason Stop Dose Admin Amino Acids 30 ml 05/26/17 08:00 05/31/17 17:29 Prosource No Carb Liquid Pkt PO Not Given BID@0800,1730 MOJGAN Escitalopram Oxalate 10 mg 05/27/17 10:00 05/31/17 09:07 Lexapro - PO 10 mg DAILY MOJGAN Administration Multivitamins/Minerals/Vitamin C 1 tab 05/26/17 10:00 05/31/17 09:07 Tab-A-Vit - PO 1 tab DAILY MOJGAN Administration Olanzapine 2.5 mg 05/29/17 22:00 05/31/17 22:31 Zyprexa - PO 2.5 mg HS MOJGAN Administration ASSESSMENT AND PLAN: 71 yo F with no significant medical history who presented to the ER with confusion and poor oral intake, found hypernatremic, later course complicated by abnormal LFts. -Major Depressive disorder with psychotic features/Paranoia -Encephalopathy -Hypovolumic hypernatremia -Acute transaminitis, likely medication induced from zyprexa -Hypokalemia, resolved -Leucocytosis, likely reactive/From hemoconcentration, resolved Plan: Psych/neurology input noted. MRI brain neg for acute concerns. Deemed to not have decision making capacity currently. Hypernatremia resolved. LFts almost normalized. Zyprexa dose decreased, started on lexapro, no new concerns. Medically ok to be transferred to psychiatric facility for further care. No ongoing concerns. Discuss with CM and accepting facility. Anticipate d/c when arranged
--- NOTE | 2017-06-01 09:53 | PN ---
Progress Note (short form) - Note Progress Note: Neurology History of Present Illness The patient is a 71 year old female, with reportedly no significant past medical history who presented to the emergency department reportedly accompanied by family members with signs of altered mental status for an unknown period of time. As per sister who arrived to the patients home from [place] n day of admission, the patient was found to be increasingly confused and with multiple lesions to the head, feet, and other extremities. Sister reports patient was able to recognize her and open the door. Family reports the patient lives at home with her brother. As per brother, patient visited her father at the hospital 1 week ago, and since then she has not wanted to leave the house, has been pulling her hair out, missing meals, and not bathing. Family states patient has been under a lot of stress over the past 6 months, as she has been hypervigilant over her father who has been at a senior living facility. The patient's brother reported she has had multiple episodes of urinary incontinence and she has complained of dysuria. Patient states the words are not making sense. the patient was admitted for further evaluation and management. She completed a noncontrast head CT which did not show any acute changes. During my evaluation, she was minimally verbal but more alert and cooperative today. Seen by neuropsychologist who deemed patient does not have capacity. Also noted auditory hallucinations. Unclear if recent stressors may have but will evaluate for any organic etiology and MRI brain completed and reviewed in detail without significant structural abnormalities. Continues to be paranoid and disorganized despite being on Zyprexa, Lexapro also added. Plan is for inpatient involuntary psych admission as she continues to have auditory hallucinations. This morning reports being scared that she will be killed here. She's states her 1:1 will kill her. Psych function does not seem to have improved. Active Medications Amino Acids (Prosource No Carb Liquid Pkt) 30 ml PO BID@0800,1730 [facility] Last Admin: 05/31/17 17:29 Dose: Not Given Escitalopram Oxalate (Lexapro -) 10 mg PO DAILY [facility] Last Admin: 05/31/17 09:07 Dose: 10 mg Multivitamins/Minerals/Vitamin C (Tab-A-Vit -) 1 tab PO DAILY [facility] Last Admin: 05/31/17 09:07 Dose: 1 tab Olanzapine (Zyprexa -) 2.5 mg PO HS [facility] Last Admin: 05/31/17 22:31 Dose: 2.5 mg *Physical Exam Vital Signs Period Temp Pulse Resp BP Sys/Garrido Pulse Ox Last 24 Hr 97.8 F-98.6 F 56-84 16-20 110-144/53-75 CONSTITUTIONAL: Awake and alert; confused, disheveled, in no apparent distress HEAD: Normocephalic; atraumatic; + numerous excoriated circular lesions to the scalp; EYES: PERRL; EOM intact; no photophobia ENMT: External appears normal; mm-dry NECK: Supple; non-tender; no cervical lymphadenopathy; CARD: Normal S1, S2; no murmurs, rubs, or gallops RESP: Normal chest excursion with respiration; breath sounds clear and equal bilaterally; no wheezes, rhonchi, or rales ABD: Soft, non-distended; non-tender; no palpable organomegaly, no palpable hernias EXT: Normal ROM in all four extremities; non-tender to palpation; distal pulses intact SKIN: Warm, dry, + numerous circular (approximately 0.5 cm in diameter), excoriated lesions to upper chest, upper and mid back and lower extremities; NEURO: Patient oriented to self and place only; hearing voices, confused to date ; uncooperative, moving all extremities symmetrically, gait-deferred; CBCD WBC 7.3 K/mm3 (4.0-10.0) 05/22/17 13:29 RBC 4.64 M/mm3 (3.60-5.2) 05/22/17 13:29 Hgb 13.4 GM/dL (10.7-15.3) 05/22/17 13:29 Hct 40.8 % (32.4-45.2) 05/22/17 13:29 MCV 88.0 fl (80-96) 05/22/17 13:29 MCHC 32.8 g/dl (32.0-36.0) 05/22/17 13:29 RDW 14.4 % (11.6-15.6) 05/22/17 13:29 Plt Count 149 K/MM3 (134-434) 05/22/17 13:29 MPV 11.0 fl (7.5-11.1) 05/22/17 13:29 CMP Sodium 139 mmol/L (136-145) 05/26/17 06:30 Potassium 3.9 mmol/L (3.5-5.1) 05/26/17 06:30 Chloride 103 mmol/L (98-107) 05/26/17 06:30 Carbon Dioxide 24 mmol/L (21-32) 05/26/17 06:30 Anion Gap 12 (8-16) 05/26/17 06:30 BUN 16 mg/dL (7-18) 05/26/17 06:30 Creatinine 0.5 mg/dL (0.55-1.02) L 05/26/17 06:30 Creat Clearance w eGFR > 60 (>60) 05/26/17 06:30 Calcium 9.7 mg/dL (8.5-10.1) 05/26/17 06:30 Total Bilirubin 0.8 mg/dL (0.2-1.0) 05/29/17 07:40 AST 38 U/L (15-37) H D 05/29/17 07:40 ALT 99 U/L (12-78) H D 05/29/17 07:40 Alkaline Phosphatase 104 U/L (45-117) 05/29/17 07:40 Total Protein 6.3 g/dl (6.4-8.2) L 05/29/17 07:40 Albumin 3.2 g/dl (3.4-5.0) L 05/29/17 07:40 - RADIOLOGY CT head as reported MRI brain as reported Medical Decision Making 71 year old female, with reportedly no significant past medical history who presented to the emergency department reportedly accompanied by family members with signs of altered mental status for an unknown period of time. She completed a noncontrast head CT which did not show any acute changes. She was seen by psychiatry and has been put on Zyprexa and Lexapro Deemed not to have decision making capacity MRI brain with age related changes but no acute abnormalities and mild volume loss that is expected for age Continued PO and IV hydration Plan for inpatient psych admission Neurologically stable and without focal deficits Agree with psych admission plan Awaiting bed at a facility Continue 1:1 monitoring for safety Remains paranoid No further rec'd at this time
[2017-06-01] MEDS: AMINO ACIDS/PROTEIN HYDROLYS 30 ML LIQUID.PKT PO SCH ×2 (10:47→17:58)
[2017-06-01] MEDS: ESCITALOPRAM OXALATE 10 MG TABLET (FP) PO SCH (10:47)
[2017-06-01] MEDS: MULTIVITAMINS (DAILY MVI) TABLET (FP) PO SCH (10:47)
[2017-06-01] MEDS: OLANZapine 2.5 MG TABLET PO SCH (21:48)
--- NOTE | 2017-06-02 08:28 | PN ---
Physical Exam: SUBJECTIVE: Patient seen and examined. Was eating breakfast this AM. Slept well last night. Paranoia has decreased since yesterday. She states she "wants to get out of here". OBJECTIVE: Vital Signs Period Temp Pulse Resp BP Sys/Garrido Pulse Ox Last 24 Hr 97.2 F-98.2 F 67-79 17-20 99-128/51-63 96-98 GEN: AAOx3 immediate memory recall intact, paranoid HEENT: PERRLA, EOMi CV: S1, S2, RRR LUNG: CTABL ABD: Soft, NT, ND, normoactive BS MSK: Scattered excoriations along body NEURO: Difficult to assess, patient is still tangential in thoughts. But MSK and sensation intact. Active Medications Generic Name Dose Route Start Last Admin Trade Name Freq PRN Reason Stop Dose Admin Amino Acids 30 ml 05/26/17 08:00 06/01/17 17:58 Prosource No Carb Liquid Pkt PO Not Given BID@0800,1730 MOJGAN Escitalopram Oxalate 10 mg 05/27/17 10:00 06/01/17 10:47 Lexapro - PO 10 mg DAILY MOJGAN Administration Multivitamins/Minerals/Vitamin C 1 tab 05/26/17 10:00 06/01/17 10:47 Tab-A-Vit - PO Not Given DAILY MOJGAN Olanzapine 2.5 mg 05/29/17 22:00 06/01/17 21:48 Zyprexa - PO 2.5 mg HS MOJGAN Administration ASSESSMENT/PLAN: Ms Ramey is a 71yo F with no significant PMHx, no psychiatric history, who was brought to the ER by her sister due to gradual onset AMS after poor PO intake. Found to have significant hypernatremia of 155. # Acute on Chronic Encephalopathy - metabolic w/u neg, likely underlying psych condition exacerbated by stressors, MRI negative, Na+ corrected - Decreased Zyprexa to 2.5mg QD, Lexapro 10mg daily, involuntarily transfer to inpatient psych, papers signed, 1:1, awaiting bed, Dr. Story in agreement - Continuing to call inpatient psych centers for beds # Transaminitis - resolved, no abd pain, hep panel negative # FEN - No IVF, sodium controlled diet # PPx - Heparin SQ TID, PT ordered # Dispo Pt is medically stable, continuing to fill out paperwork for transfer for inpatient psych d/w Dr Jenny Matt MD - PGY1 Internal Medicine Visit type - Emergency Visit Emergency Visit: No - New Patient This patient is new to me today: No - Critical Care Critical Care patient: No - Discharge Referral Referred to [facility] Med P.C.: No
--- NOTE | 2017-06-02 09:40 | PN ---
Progress Note (short form) - Note Progress Note: Neurology History of Present Illness The patient is a 71 year old female, with reportedly no significant past medical history who presented to the emergency department reportedly accompanied by family members with signs of altered mental status for an unknown period of time. As per sister who arrived to the patients home from [place] n day of admission, the patient was found to be increasingly confused and with multiple lesions to the head, feet, and other extremities. Sister reports patient was able to recognize her and open the door. Family reports the patient lives at home with her brother. As per brother, patient visited her father at the hospital 1 week ago, and since then she has not wanted to leave the house, has been pulling her hair out, missing meals, and not bathing. Family states patient has been under a lot of stress over the past 6 months, as she has been hypervigilant over her father who has been at a long term facility. The patient's brother reported she has had multiple episodes of urinary incontinence and she has complained of dysuria. Patient states the words are not making sense. the patient was admitted for further evaluation and management. She completed a noncontrast head CT which did not show any acute changes. During my evaluation, she was minimally verbal but more alert and cooperative today. Seen by neuropsychologist who deemed patient does not have capacity. Also noted auditory hallucinations. Unclear if recent stressors may have but will evaluate for any organic etiology and MRI brain completed and reviewed in detail without significant structural abnormalities. Able to tell me she's in the hospital and date written on board but says she doesn't trust the date. Still on 1:1 and awaiting placement. Active Medications Amino Acids (Prosource No Carb Liquid Pkt) 30 ml PO BID@0800,1730 [facility] Last Admin: 06/01/17 17:58 Dose: Not Given Escitalopram Oxalate (Lexapro -) 10 mg PO DAILY [facility] Last Admin: 06/01/17 10:47 Dose: 10 mg Multivitamins/Minerals/Vitamin C (Tab-A-Vit -) 1 tab PO DAILY [facility] Last Admin: 06/01/17 10:47 Dose: Not Given Olanzapine (Zyprexa -) 2.5 mg PO HS [facility] Last Admin: 06/01/17 21:48 Dose: 2.5 mg *Physical Exam Vital Signs Period Temp Pulse Resp BP Sys/Garrido Pulse Ox Last 24 Hr 97.2 F-98.2 F 67-79 18-20 99-128/51-63 96 CONSTITUTIONAL: Awake and alert; confused, disheveled, in no apparent distress HEAD: Normocephalic; atraumatic; + numerous excoriated circular lesions to the scalp; EYES: PERRL; EOM intact; no photophobia ENMT: External appears normal; mm-dry NECK: Supple; non-tender; no cervical lymphadenopathy; CARD: Normal S1, S2; no murmurs, rubs, or gallops RESP: Normal chest excursion with respiration; breath sounds clear and equal bilaterally; no wheezes, rhonchi, or rales ABD: Soft, non-distended; non-tender; no palpable organomegaly, no palpable hernias EXT: Normal ROM in all four extremities; non-tender to palpation; distal pulses intact SKIN: Warm, dry, + numerous circular (approximately 0.5 cm in diameter), excoriated lesions to upper chest, upper and mid back and lower extremities; NEURO: Patient oriented to self and place only; hearing voices, confused to date ; uncooperative, moving all extremities symmetrically, gait-deferred; CBCD WBC 7.3 K/mm3 (4.0-10.0) 05/22/17 13:29 RBC 4.64 M/mm3 (3.60-5.2) 05/22/17 13:29 Hgb 13.4 GM/dL (10.7-15.3) 05/22/17 13:29 Hct 40.8 % (32.4-45.2) 05/22/17 13:29 MCV 88.0 fl (80-96) 05/22/17 13:29 MCHC 32.8 g/dl (32.0-36.0) 05/22/17 13:29 RDW 14.4 % (11.6-15.6) 05/22/17 13:29 Plt Count 149 K/MM3 (134-434) 05/22/17 13:29 MPV 11.0 fl (7.5-11.1) 05/22/17 13:29 CMP Sodium 139 mmol/L (136-145) 05/26/17 06:30 Potassium 3.9 mmol/L (3.5-5.1) 05/26/17 06:30 Chloride 103 mmol/L (98-107) 05/26/17 06:30 Carbon Dioxide 24 mmol/L (21-32) 05/26/17 06:30 Anion Gap 12 (8-16) 05/26/17 06:30 BUN 16 mg/dL (7-18) 05/26/17 06:30 Creatinine 0.5 mg/dL (0.55-1.02) L 05/26/17 06:30 Creat Clearance w eGFR > 60 (>60) 05/26/17 06:30 Calcium 9.7 mg/dL (8.5-10.1) 05/26/17 06:30 Total Bilirubin 0.8 mg/dL (0.2-1.0) 05/29/17 07:40 AST 38 U/L (15-37) H D 05/29/17 07:40 ALT 99 U/L (12-78) H D 05/29/17 07:40 Alkaline Phosphatase 104 U/L (45-117) 05/29/17 07:40 Total Protein 6.3 g/dl (6.4-8.2) L 05/29/17 07:40 Albumin 3.2 g/dl (3.4-5.0) L 05/29/17 07:40 - RADIOLOGY CT head as reported MRI brain as reported Medical Decision Making 71 year old female, with reportedly no significant past medical history who presented to the emergency department reportedly accompanied by family members with signs of altered mental status for an unknown period of time. She completed a noncontrast head CT which did not show any acute changes. She was seen by psychiatry and has been put on Zyprexa and Lexapro Deemed not to have decision making capacity MRI brain with age related changes but no acute abnormalities and mild volume loss that is expected for age Continued PO and IV hydration Plan for inpatient psych admission Agree with psych admission plan Awaiting bed at a facility Continue 1:1 monitoring for safety Remains paranoid
[2017-06-02] MEDS: MULTIVITAMINS (DAILY MVI) TABLET (FP) PO SCH (09:49)
[2017-06-02] MEDS: ESCITALOPRAM OXALATE 10 MG TABLET (FP) PO SCH (09:49)
[2017-06-02] MEDS: AMINO ACIDS/PROTEIN HYDROLYS 30 ML LIQUID.PKT PO SCH ×3 (09:49→18:30)
--- NOTE | 2017-06-02 10:51 | PN ---
Progress Note (short form) - Note Progress Note: Homer Ramey was seen again for therapy. She was more communicative and responsive to the visit. The patient denied auditory hallucinations. However, she still imagines that there is another person in the room (a patient). She also still experiences paranoid delusions of persecution as she feels that people are going to harm her. We attempted exploring the basis for these beliefs and tried to use reasoning to discredit the validity of them. The patient still was unable to accept this process of cognitive therapy. The patient was receptive to self applied acupressure - rubbing her hands for anxiety reduction. In summary, she was engaging and wanted me to remain in the room as she felt comfort with my presence and enjoyed talking with me. I asked Rev. Manuel Mcqueen if he could visit her to offer support. Rev. Harvey Mcqueen indicated he will look in on her as often as possible.
--- NOTE | 2017-06-02 15:41 | PN ---
Teaching Attending Note Name of Resident: Agapito Matt ATTENDING PHYSICIAN STATEMENT I saw and evaluated the patient. I reviewed the resident's note and discussed the case with the resident. I agree with the resident's findings and plan as documented. SUBJECTIVE:paranoid OBJECTIVE: Last Vital Signs Temp Pulse Resp BP Pulse Ox 98.7 F 63 18 122/56 96 06/02/17 10:00 06/02/17 10:00 06/02/17 10:00 06/02/17 10:00 06/02/17 09:00 general NAD ASSESSMENT AND PLAN: 71 yo F with no significant medical history who presented to the ER with confusion and poor oral intake. 1. Encephalopathy with paranoia- remains paranoid. workup negative. pt poses risk to others due to hallucinations and commands. on 1:1 observation. 2 PC committed. awaiting bed availability at inpatient psych. zyprexa dose decreased due to transaminitis, started on lexapro. neuropsych and neuro on board 2. Acute transaminitis- possible due to zyprexa. now trending down and almost normalized. hepatits panel negative. 3. Hypernatremia-due to poor oral intake. resolved. 4. Hypokalemia- Resolved 5, leukocytosis- likely reactive. no signs of infection. resolved 6. DVT ppx- lovenox 7. Medically stable for transfer for inpatient psych
[2017-06-02] MEDS ORDERED: PT OWN MED DRAWER 7, Y5N ONE (21:05)
[2017-06-02] MEDS: OLANZapine 2.5 MG TABLET PO SCH (21:43)
[2017-06-03] MEDS: AMINO ACIDS/PROTEIN HYDROLYS 30 ML LIQUID.PKT PO SCH ×2 (08:28→16:41)
--- NOTE | 2017-06-03 09:49 | PN ---
Progress Note (short form) - Note Progress Note: Neurology History of Present Illness The patient is a 71 year old female, with reportedly no significant past medical history who presented to the emergency department reportedly accompanied by family members with signs of altered mental status for an unknown period of time. As per sister who arrived to the patients home from [place] n day of admission, the patient was found to be increasingly confused and with multiple lesions to the head, feet, and other extremities. Sister reports patient was able to recognize her and open the door. Family reports the patient lives at home with her brother. As per brother, patient visited her father at the hospital 1 week ago, and since then she has not wanted to leave the house, has been pulling her hair out, missing meals, and not bathing. Family states patient has been under a lot of stress over the past 6 months, as she has been hypervigilant over her father who has been at a [facility] facility. The patient's brother reported she has had multiple episodes of urinary incontinence and she has complained of dysuria. Patient states the words are not making sense. the patient was admitted for further evaluation and management. She completed a noncontrast head CT which did not show any acute changes. During my evaluation, she was minimally verbal but more alert and cooperative today. Seen by neuropsychologist who deemed patient does not have capacity. Slightly more cooperative today, remembers me but reports hearing a sound earlier this morning. Did not have any acute neurologic events overnight. Still on 1:1 and awaiting placement. Active Medications Amino Acids (Prosource No Carb Liquid Pkt) 30 ml PO BID@0800,1730 [facility] Last Admin: 06/03/17 08:28 Dose: Not Given Escitalopram Oxalate (Lexapro -) 10 mg PO DAILY [facility] Last Admin: 06/02/17 09:49 Dose: 10 mg Multivitamins/Minerals/Vitamin C (Tab-A-Vit -) 1 tab PO DAILY [facility] Last Admin: 06/02/17 09:49 Dose: 1 tab Olanzapine (Zyprexa -) 2.5 mg PO HS [facility] Last Admin: 06/02/17 21:43 Dose: 2.5 mg *Physical Exam Vital Signs Temperature 98.2 F 06/03/17 06:00 Pulse Rate 72 06/03/17 06:00 Respiratory Rate 20 06/03/17 06:00 Blood Pressure 112/54 06/03/17 06:00 O2 Sat by Pulse Oximetry (%) 96 06/02/17 21:00 CONSTITUTIONAL: Awake and alert; confused, disheveled, in no apparent distress HEAD: Normocephalic; atraumatic; + numerous excoriated circular lesions to the scalp; EYES: PERRL; EOM intact; no photophobia ENMT: External appears normal; mm-dry NECK: Supple; non-tender; no cervical lymphadenopathy; CARD: Normal S1, S2; no murmurs, rubs, or gallops RESP: Normal chest excursion with respiration; breath sounds clear and equal bilaterally; no wheezes, rhonchi, or rales ABD: Soft, non-distended; non-tender; no palpable organomegaly, no palpable hernias EXT: Normal ROM in all four extremities; non-tender to palpation; distal pulses intact SKIN: Warm, dry, + numerous circular (approximately 0.5 cm in diameter), excoriated lesions to upper chest, upper and mid back and lower extremities; NEURO: Patient oriented to self and place only; hearing voices, confused to date ; uncooperative, moving all extremities symmetrically, gait-deferred; CBCD WBC 7.3 K/mm3 (4.0-10.0) 05/22/17 13:29 RBC 4.64 M/mm3 (3.60-5.2) 05/22/17 13:29 Hgb 13.4 GM/dL (10.7-15.3) 05/22/17 13:29 Hct 40.8 % (32.4-45.2) 05/22/17 13:29 MCV 88.0 fl (80-96) 05/22/17 13:29 MCHC 32.8 g/dl (32.0-36.0) 05/22/17 13:29 RDW 14.4 % (11.6-15.6) 05/22/17 13:29 Plt Count 149 K/MM3 (134-434) 05/22/17 13:29 MPV 11.0 fl (7.5-11.1) 05/22/17 13:29 CMP Sodium 139 mmol/L (136-145) 05/26/17 06:30 Potassium 3.9 mmol/L (3.5-5.1) 05/26/17 06:30 Chloride 103 mmol/L (98-107) 05/26/17 06:30 Carbon Dioxide 24 mmol/L (21-32) 05/26/17 06:30 Anion Gap 12 (8-16) 05/26/17 06:30 BUN 16 mg/dL (7-18) 05/26/17 06:30 Creatinine 0.5 mg/dL (0.55-1.02) L 05/26/17 06:30 Creat Clearance w eGFR > 60 (>60) 05/26/17 06:30 Calcium 9.7 mg/dL (8.5-10.1) 05/26/17 06:30 Total Bilirubin 0.8 mg/dL (0.2-1.0) 05/29/17 07:40 AST 38 U/L (15-37) H D 05/29/17 07:40 ALT 99 U/L (12-78) H D 05/29/17 07:40 Alkaline Phosphatase 104 U/L (45-117) 05/29/17 07:40 Total Protein 6.3 g/dl (6.4-8.2) L 05/29/17 07:40 Albumin 3.2 g/dl (3.4-5.0) L 05/29/17 07:40 - RADIOLOGY CT head as reported MRI brain as reported Medical Decision Making 71 year old female, with reportedly no significant past medical history who presented to the emergency department reportedly accompanied by family members with signs of altered mental status for an unknown period of time. She completed a noncontrast head CT which did not show any acute changes. She was seen by psychiatry and has been put on Zyprexa and Lexapro Deemed not to have decision making capacity MRI brain with age related changes but no acute abnormalities and mild volume loss that is expected for age Continued PO and IV hydration Plan for inpatient psych admission Agree with psych admission plan Awaiting bed at a facility Continue 1:1 monitoring for safety Remains paranoid
[2017-06-03] MEDS: ESCITALOPRAM OXALATE 10 MG TABLET (FP) PO SCH (10:33)
[2017-06-03] MEDS: MULTIVITAMINS (DAILY MVI) TABLET (FP) PO SCH (10:33)
--- NOTE | 2017-06-03 11:44 | PN ---
Physical Exam: SUBJECTIVE: Patient seen and examined. Ate breakfast well. She continues to ask about disposition plan. Still paranoid. OBJECTIVE: Vital Signs Period Temp Pulse Resp BP Sys/Garrido Pulse Ox Last 24 Hr 98.2 F-98.4 F 67-76 18-20 104-135/51-58 96 GEN: AAOx3 immediate memory recall intact, paranoid HEENT: PERRLA, EOMi CV: S1, S2, RRR LUNG: CTABL ABD: Soft, NT, ND, normoactive BS MSK: Scattered excoriations along body NEURO: Difficult to assess, patient is still tangential in thoughts. But MSK and sensation intact. Active Medications Generic Name Dose Route Start Last Admin Trade Name Freq PRN Reason Stop Dose Admin Amino Acids 30 ml 05/26/17 08:00 06/03/17 08:28 Prosource No Carb Liquid Pkt PO Not Given BID@0800,1730 [facility] Escitalopram Oxalate 10 mg 05/27/17 10:00 06/03/17 10:33 Lexapro - PO 10 mg DAILY [facility] Administration Multivitamins/Minerals/Vitamin C 1 tab 05/26/17 10:00 06/03/17 10:33 Tab-A-Vit - PO 1 tab DAILY [facility] Administration Olanzapine 2.5 mg 05/29/17 22:00 06/02/17 21:43 Zyprexa - PO 2.5 mg HS [facility] Administration ASSESSMENT/PLAN: Ms Ramey is a 71yo F with no significant PMHx, no psychiatric history, who was brought to the ER by her sister due to gradual onset AMS after poor PO intake. Found to have significant hypernatremia of 155. # Acute on Chronic Encephalopathy - metabolic w/u neg, likely underlying psych condition exacerbated by stressors, MRI negative, Na+ corrected - Continue with Zyprexa 2.5mg QD, Lexapro 10mg daily, will get STAT CMP to assess LFTs as to help proceed with inpatient transfer - Involuntarily transfer to inpatient psych, papers signed, 1:1, awaiting bed , Dr. Story in agreement - Continuing to call inpatient psych centers for beds # Transaminitis - STAT CMP today to assess, no abd pain, hep panel negative, still medically stable. # FEN - No IVF, sodium controlled diet # PPx - Heparin SQ TID, PT ordered # Dispo Pt is medically stable, continuing to fill out paperwork for transfer for inpatient psych d/w Dr Jenny Matt MD - PGY1 Internal Medicine Visit type - Emergency Visit Emergency Visit: No - New Patient This patient is new to me today: No - Critical Care Critical Care patient: No - Discharge Referral Referred to [facility] Med P.C.: No
[2017-06-03 12:31] LABS: MCH 28.7 pg (25.7-33.7); MCHC 32.5 g/dl (32.0-36.0); MEAN CELL VOLUME 88.3 fl (80-96); MEAN PLT VOLUME 8.9 fl (7.5-11.1); PLATELET COUNT 247 K/MM3 (134-434); RDW 15.3 % (11.6-15.6); WHITE BLOOD COUNT 7.5 K/mm3 (4.0-10.0)
[2017-06-03 12:48] LABS: ALBUMIN 3.2 g/dl (3.4-5.0); BILIRUBIN,DIRECT 0.2 mg/dL (0.0-0.2); BILIRUBIN,TOTAL 0.5 mg/dL (0.2-1.0); TOT PROT 6.3 g/dl (6.4-8.2)
--- NOTE | 2017-06-03 13:24 | PN ---
Teaching Attending Note Name of Resident: Agapito Matt ATTENDING PHYSICIAN STATEMENT I saw and evaluated the patient. I reviewed the resident's note and discussed the case with the resident. I agree with the resident's findings and plan as documented. SUBJECTIVE:asymptomatic OBJECTIVE: Last Vital Signs Temp Pulse Resp BP Pulse Ox 98.4 F 65 20 90/45 97 06/03/17 10:00 06/03/17 10:00 06/03/17 10:00 06/03/17 10:00 06/03/17 09:00 general NAD ASSESSMENT AND PLAN: 71 yo F with no significant medical history who presented to the ER with confusion and poor oral intake. 1. Encephalopathy with paranoia- remains paranoid. workup negative. pt poses risk to others due to hallucinations and commands. on 1:1 observation. 2 PC committed. awaiting bed availability at inpatient psych. zyprexa dose decreased due to transaminitis, started on lexapro. neuropsych and neuro on board 2. Acute transaminitis- possible due to zyprexa. now resolved. hepatits panel negative. 3. Hypernatremia-due to poor oral intake. resolved. 4. Hypokalemia- Resolved 5, leukocytosis- likely reactive. no signs of infection. resolved 6. DVT ppx- lovenox 7. Medically stable for transfer for inpatient psych. there is no acute medical issue that requires inpatient care.
[2017-06-03 17:17] LABS: ANION GAP 9 (8-16); CALCIUM 9.2 mg/dL (8.5-10.1); CO2 27 mmol/L (21-32); CREATININE 0.7 mg/dL (0.55-1.02); GLUCOSE,RANDOM 82 mg/dL (74-106)
--- NOTE | 2017-06-03 17:27 | CON.PSY ---
Psychiatry Consult Chief Complaint: Asked to see Ms. jewell seen for a psychiatric follow up. History of Present Problem: Patient states that she feels "OK" Still delusional and psychotic. No behaviral issues observed or reported. Symptoms: reports: Depressed Mood, Anxiety, Restlessness - Current Medications Current Medications: Active Medications Amino Acids (Prosource No Carb Liquid Pkt) 30 ml PO BID@0800,1730 [facility] Last Admin: 06/03/17 16:41 Dose: Not Given Escitalopram Oxalate (Lexapro -) 10 mg PO DAILY [facility] Last Admin: 06/03/17 10:33 Dose: 10 mg Multivitamins/Minerals/Vitamin C (Tab-A-Vit -) 1 tab PO DAILY [facility] Last Admin: 06/03/17 10:33 Dose: 1 tab Olanzapine (Zyprexa -) 2.5 mg PO HS [facility] Last Admin: 06/02/17 21:43 Dose: 2.5 mg - Allergies Allergies: Allergies Allergy/AdvReac Type Severity Reaction Status Date / Time No Known Allergies Allergy Verified 05/18/17 19:19 - Current Living Status Usual Living Arrangement: Other (with brother) - Current Mental Status Evaluation Attitude: Suspicious - Affect Affect: Constrictive - Mood Mood: Anxious, Irritable - Speech/Language Expressive: Delayed Receptive: Delayed Receptive Comprehension - Psychomotor Activity Psychomotor Activity: Normal - Thought Process Thought Process: Loosening of Associations, Transgential - Thought Content Hallucinations: Present Type: Auditory, Visual Delusions: Present Type: Persectory - Cognition Attention: Diminished Memory, Immediate Recall: Impaired Memory, Remote: Impaired - Concentration Serial Sevens Intact: No Simple Calculations Intact: No - Abstraction Proverb Interpretation: Impaired Judgement: Moderately Impaired - Impulse Control Impulse Control: Minimally Impaired - Suicidal Ideation Suicidal Ideation: No - Homicidal Ideation Homicidal Ideation: No Assessment/Plan Alert to self only Patient is delusinal with disorganized thinking - Paranoid ideation elicited Preoccupied with poor insight and judgment. Patient needs in patient psychiatrist care at this time
[2017-06-03] MEDS ORDERED: PT OWN MED DRAWER 7, Y5N ONE (20:22)
[2017-06-03] MEDS: OLANZapine 2.5 MG TABLET PO SCH (21:30)
[2017-06-04] MEDS: AMINO ACIDS/PROTEIN HYDROLYS 30 ML LIQUID.PKT PO SCH ×2 (08:51→17:29)
--- NOTE | 2017-06-04 09:32 | PN ---
Progress Note (short form) - Note Progress Note: Neurology History of Present Illness The patient is a 71 year old female, with reportedly no significant past medical history who presented to the emergency department reportedly accompanied by family members with signs of altered mental status for an unknown period of time. As per sister who arrived to the patients home from [place] n day of admission, the patient was found to be increasingly confused and with multiple lesions to the head, feet, and other extremities. Sister reports patient was able to recognize her and open the door. Family reports the patient lives at home with her brother. As per brother, patient visited her father at the hospital 1 week ago, and since then she has not wanted to leave the house, has been pulling her hair out, missing meals, and not bathing. Family states patient has been under a lot of stress over the past 6 months, as she has been hypervigilant over her father who has been at a [facility] facility. The patient's brother reported she has had multiple episodes of urinary incontinence and she has complained of dysuria. Patient states the words are not making sense. the patient was admitted for further evaluation and management. She completed a noncontrast head CT which did not show any acute changes. During my evaluation, she was minimally verbal but more alert and cooperative today. Seen by neuropsychologist who deemed patient does not have capacity. Was requesting help but not specific on her needs. Appeared suspicious of 1:1 at bedside. Asking for general physician but also requesting me to not leave the room. Did not have any acute neurologic events overnight. Still on 1:1 and awaiting placement. Active Medications Amino Acids (Prosource No Carb Liquid Pkt) 30 ml PO BID@0800,1730 [facility] Last Admin: 06/04/17 08:51 Dose: Not Given Escitalopram Oxalate (Lexapro -) 10 mg PO DAILY [facility] Last Admin: 06/03/17 10:33 Dose: 10 mg Multivitamins/Minerals/Vitamin C (Tab-A-Vit -) 1 tab PO DAILY [facility] Last Admin: 06/03/17 10:33 Dose: 1 tab Olanzapine (Zyprexa -) 2.5 mg PO HS [facility] Last Admin: 06/03/17 21:30 Dose: 2.5 mg *Physical Exam Vital Signs Temperature 98.4 F 06/04/17 06:00 Pulse Rate 66 06/04/17 06:00 Respiratory Rate 20 06/04/17 06:00 Blood Pressure 104/58 06/04/17 06:00 O2 Sat by Pulse Oximetry (%) 97 06/03/17 21:00 CONSTITUTIONAL: Awake and alert; confused, disheveled, in no apparent distress HEAD: Normocephalic; atraumatic; + numerous excoriated circular lesions to the scalp; EYES: PERRL; EOM intact; no photophobia ENMT: External appears normal; mm-dry NECK: Supple; non-tender; no cervical lymphadenopathy; CARD: Normal S1, S2; no murmurs, rubs, or gallops RESP: Normal chest excursion with respiration; breath sounds clear and equal bilaterally; no wheezes, rhonchi, or rales ABD: Soft, non-distended; non-tender; no palpable organomegaly, no palpable hernias EXT: Normal ROM in all four extremities; non-tender to palpation; distal pulses intact SKIN: Warm, dry, + numerous circular (approximately 0.5 cm in diameter), excoriated lesions to upper chest, upper and mid back and lower extremities; NEURO: Patient oriented to self and place only; hearing voices, confused to date ; uncooperative, moving all extremities symmetrically, gait-deferred; CBCD WBC 7.5 K/mm3 (4.0-10.0) 06/03/17 12:00 RBC 4.55 M/mm3 (3.60-5.2) 06/03/17 12:00 Hgb 13.0 GM/dL (10.7-15.3) 06/03/17 12:00 Hct 40.2 % (32.4-45.2) 06/03/17 12:00 MCV 88.3 fl (80-96) 06/03/17 12:00 MCHC 32.5 g/dl (32.0-36.0) 06/03/17 12:00 RDW 15.3 % (11.6-15.6) 06/03/17 12:00 Plt Count 247 K/MM3 (134-434) D 06/03/17 12:00 MPV 8.9 fl (7.5-11.1) D 06/03/17 12:00 CMP Sodium 142 mmol/L (136-145) 06/03/17 15:40 Potassium 4.0 mmol/L (3.5-5.1) 06/03/17 15:40 Chloride 106 mmol/L (98-107) 06/03/17 15:40 Carbon Dioxide 27 mmol/L (21-32) 06/03/17 15:40 Anion Gap 9 (8-16) 06/03/17 15:40 BUN 18 mg/dL (7-18) 06/03/17 15:40 Creatinine 0.7 mg/dL (0.55-1.02) D 06/03/17 15:40 Creat Clearance w eGFR > 60 (>60) 05/26/17 06:30 Calcium 9.2 mg/dL (8.5-10.1) 06/03/17 15:40 Total Bilirubin 0.5 mg/dL (0.2-1.0) D 06/03/17 12:00 AST 25 U/L (15-37) D 06/03/17 12:00 ALT 51 U/L (12-78) D 06/03/17 12:00 Alkaline Phosphatase 84 U/L (45-117) 06/03/17 12:00 Total Protein 6.3 g/dl (6.4-8.2) L 06/03/17 12:00 Albumin 3.2 g/dl (3.4-5.0) L 06/03/17 12:00 - RADIOLOGY CT head as reported MRI brain as reported Medical Decision Making 71 year old female, with reportedly no significant past medical history who presented to the emergency department reportedly accompanied by family members with signs of altered mental status for an unknown period of time. She completed a noncontrast head CT which did not show any acute changes. She was seen by psychiatry and has been put on Zyprexa and Lexapro Deemed not to have decision making capacity MRI brain with age related changes but no acute abnormalities and mild volume loss that is expected for age Continued PO and IV hydration Plan for inpatient psych admission Agree with psych admission plan Awaiting bed at a facility Continue 1:1 monitoring for safety Remains paranoid
[2017-06-04] MEDS: ESCITALOPRAM OXALATE 10 MG TABLET (FP) PO SCH (09:54)
[2017-06-04] MEDS: MULTIVITAMINS (DAILY MVI) TABLET (FP) PO SCH (09:54)
--- NOTE | 2017-06-04 12:02 | PN ---
Physical Exam: SUBJECTIVE: Patient seen and examined. Still paranoid, stating that she does not want the examiner to leave. OBJECTIVE: Vital Signs Period Temp Pulse Resp BP Sys/Garrido Pulse Ox Last 24 Hr 98.1 F-98.5 F 64-78 18-20 91-109/48-60 97-98 GEN: AAOx3 immediate memory recall intact, paranoid HEENT: PERRLA, EOMi CV: S1, S2, RRR LUNG: CTABL ABD: Soft, NT, ND, normoactive BS MSK: Scattered excoriations along body NEURO: Difficult to assess, patient is still tangential in thoughts. But MSK and sensation intact. Laboratory Last Values WBC 7.5 K/mm3 (4.0-10.0) 06/03/17 12:00 RBC 4.55 M/mm3 (3.60-5.2) 06/03/17 12:00 Hgb 13.0 GM/dL (10.7-15.3) 06/03/17 12:00 Hct 40.2 % (32.4-45.2) 06/03/17 12:00 MCV 88.3 fl (80-96) 06/03/17 12:00 MCH 28.7 pg (25.7-33.7) 06/03/17 12:00 MCHC 32.5 g/dl (32.0-36.0) 06/03/17 12:00 RDW 15.3 % (11.6-15.6) 06/03/17 12:00 Plt Count 247 K/MM3 (134-434) D 06/03/17 12:00 MPV 8.9 fl (7.5-11.1) D 06/03/17 12:00 Neutrophils % 45.6 % (42.8-82.8) D 05/22/17 13:29 Lymphocytes % 39.3 % (8-40) D 05/22/17 13:29 Monocytes % 11.4 % (3.8-10.2) H 05/22/17 13:29 Eosinophils % 2.8 % (0-4.5) 05/22/17 13:29 Basophils % 0.9 % (0-2.0) 05/22/17 13:29 RBC Morphology 05/22/17 13:29 PT with INR 13.30 SEC (9.98-11.88) H 05/16/17 18:00 INR 1.18 (0.82-1.09) H 05/16/17 18:00 Sodium 142 mmol/L (136-145) 06/03/17 15:40 Potassium 4.0 mmol/L (3.5-5.1) 06/03/17 15:40 Chloride 106 mmol/L (98-107) 06/03/17 15:40 Carbon Dioxide 27 mmol/L (21-32) 06/03/17 15:40 Anion Gap 9 (8-16) 06/03/17 15:40 BUN 18 mg/dL (7-18) 06/03/17 15:40 Creatinine 0.7 mg/dL (0.55-1.02) D 06/03/17 15:40 Creat Clearance w eGFR > 60 (>60) 05/26/17 06:30 POC Glucometer 88 UNITS (80-120) 05/30/17 16:40 Random Glucose 82 mg/dL (74-106) 06/03/17 15:40 Calcium 9.2 mg/dL (8.5-10.1) 06/03/17 15:40 Magnesium 2.2 mg/dL (1.8-2.4) 05/25/17 07:00 Total Bilirubin 0.5 mg/dL (0.2-1.0) D 06/03/17 12:00 Direct Bilirubin 0.2 mg/dL (0.0-0.2) D 06/03/17 12:00 AST 25 U/L (15-37) D 06/03/17 12:00 ALT 51 U/L (12-78) D 06/03/17 12:00 Alkaline Phosphatase 84 U/L (45-117) 06/03/17 12:00 Creatine Kinase 22 IU/L (26-192) L 05/25/17 07:00 Ammonia < 10.00 umol/L (11-32) L 06/03/17 15:40 Troponin I < 0.02 ng/ml (0.00-0.05) 05/16/17 18:00 Total Protein 6.3 g/dl (6.4-8.2) L 06/03/17 12:00 Albumin 3.2 g/dl (3.4-5.0) L 06/03/17 12:00 Urine Color Isi 05/16/17 19:52 Urine Appearance Slcloudy 05/16/17 19:52 Urine pH 5.0 (5.0-8.0) 05/16/17 19:52 Ur Specific [place] 1.025 (1.005-1.025) 05/16/17 19:52 Urine Protein 1+ (NEGATIVE) H 05/16/17 19:52 Urine Glucose (UA) 1+ (NEGATIVE) H 05/16/17 19:52 Urine Ketones Trace (NEGATIVE) H 05/16/17 19:52 Urine Blood Negative (NEGATIVE) 05/16/17 19:52 Urine Nitrite Negative (NEGATIVE) 05/16/17 19:52 Urine Bilirubin Negative (NEGATIVE) 05/16/17 19:52 Urine Urobilinogen 2.0 mg/dL (0.2-1.0) H 05/16/17 19:52 Ur Leukocyte Esterase Negative (NEGATIVE) 05/16/17 19:52 Urine RBC 1 /hpf (0-3) 05/16/17 19:52 Urine WBC 4 /hpf (3-5) 05/16/17 19:52 Ur Epithelial Cells Rare /hpf (FEW) 05/16/17 19:52 Urine Bacteria Rare /hpf (NONE SEEN) 05/16/17 19:52 Hyaline Casts 9 /lpf 05/16/17 19:52 Urine Mucus Few 05/16/17 19:52 Urine Osmolality 1208 mosm/kg (300-900) H 05/16/17 23:37 Ur Random Sodium 223 MMOL/L 05/16/17 23:37 Salicylates < 4.0 mg/dl (0.0-30.0) 05/16/17 18:00 Opiates Screen Negative ng/ml (LWWQWM=601) 05/16/17 18:00 Methadone Screen Negative ng/ml (MGKGJA=859) 05/16/17 18:00 Acetaminophen < 2.0 ug/ml (10.0-30.0) L 05/16/17 18:00 Barbiturate Screen Negative ng/ml (NAGMWG=358) 05/16/17 18:00 Phencyclidine Screen Negative ng/ml (CUTOFF=25) 05/16/17 18:00 Ur Amphetamines Screen Negative ng/ml (TZBPMJ=605) 05/16/17 18:00 MDMA (Ecstasy) Screen Negative ng/ml (BHVEEN=207) 05/16/17 18:00 Benzodiazepines Screen Negative ng/ml (DMJCHC=581) 05/16/17 18:00 Cocaine Screen Negative ng/ml (VFQSRV=603) 05/16/17 18:00 U Marijuana (THC) Screen Negative ng/ml (CUTOFF=50) 05/16/17 18:00 Alcohol, Quantitative < 5.0 mg/dl (0-5) 05/16/17 18:00 Hepatitis A IgM Ab Negative (Negative) 05/24/17 07:54 Hep Bs Antigen Negative (Negative) 05/24/17 07:54 Hep B Core IgM Ab Negative (Negative) 05/24/17 07:54 Hepatitis C Ab (EIA) <0.1 s/co ratio (0.0-0.9) 05/24/17 07:54 Active Medications Generic Name Dose Route Start Last Admin Trade Name Markusq PRN Reason Stop Dose Admin Amino Acids 30 ml 05/26/17 08:00 06/04/17 08:51 Prosource No Carb Liquid Pkt PO Not Given BID@0800,1730 [facility] Escitalopram Oxalate 10 mg 05/27/17 10:00 06/04/17 09:54 Lexapro - PO 10 mg DAILY [facility] Administration Multivitamins/Minerals/Vitamin C 1 tab 05/26/17 10:00 06/04/17 09:54 Tab-A-Vit - PO 1 tab DAILY [facility] Administration Olanzapine 2.5 mg 05/29/17 22:00 06/03/17 21:30 Zyprexa - PO 2.5 mg HS [facility] Administration ASSESSMENT/PLAN: Ms Ramey is a 71yo F with no significant PMHx, no psychiatric history, who was brought to the ER by her sister due to gradual onset AMS after poor PO intake. Found to have significant hypernatremia of 155. # Acute on Chronic Encephalopathy - metabolic w/u neg, likely underlying psych condition exacerbated by stressors, MRI negative, Na+ corrected - Continue with Zyprexa 2.5mg QD, Lexapro 10mg daily, latest labs are WNL - Involuntarily transfer to inpatient psych, papers signed, 1:1, awaiting bed , Dr. Story in agreement - Continuing to call inpatient psych centers for beds # FEN - No IVF, sodium controlled diet # PPx - Heparin SQ TID, PT ordered # Dispo Pt is medically stable, continuing to fill out paperwork for transfer for inpatient psych d/w Dr Jenny Matt MD - PGY1 Internal Medicine Visit type - Emergency Visit Emergency Visit: No - New Patient This patient is new to me today: No - Critical Care Critical Care patient: No - Discharge Referral Referred to [facility] Med P.C.: No
--- NOTE | 2017-06-04 13:56 | PN ---
Teaching Attending Note Name of Resident: Agapito Matt ATTENDING PHYSICIAN STATEMENT I saw and evaluated the patient. I reviewed the resident's note and discussed the case with the resident. I agree with the resident's findings and plan as documented. SUBJECTIVE:continues to be preoccupied with . denies CP, SOB OBJECTIVE: Last Vital Signs Temp Pulse Resp BP Pulse Ox 98.2 F 64 20 109/51 98 06/04/17 09:47 06/04/17 09:47 06/04/17 09:47 06/04/17 09:47 06/04/17 09:00 general NAD ASSESSMENT AND PLAN: 71 yo F with no significant medical history who presented to the ER with confusion and poor oral intake. 1. Encephalopathy with paranoia- remains paranoid. workup negative. pt poses risk to others due to hallucinations and commands. on 1:1 observation. 2 PC committed. awaiting bed availability at inpatient psych. zyprexa dose decreased due to transaminitis, started on lexapro. neuropsych and neuro on board 2. Acute transaminitis- possible due to zyprexa. now resolved. hepatits panel negative. 3. Hypernatremia-due to poor oral intake. resolved. 4. Hypokalemia- Resolved 5, leukocytosis- likely reactive. no signs of infection. resolved 6. DVT ppx- lovenox 7. Medically stable for transfer for inpatient psych. there is no acute medical issue that requires inpatient care.
[2017-06-04] MEDS ORDERED: PT OWN MED DRAWER 7, Y5N ONE (20:30)
[2017-06-04] MEDS: OLANZapine 2.5 MG TABLET PO SCH (21:21)
--- NOTE | 2017-06-05 07:19 | PN ---
Physical Exam: SUBJECTIVE: Patient seen and examined. Still suspiciously looking at people, stating she has "many problems". Labile affect OBJECTIVE: Vital Signs Period Temp Pulse Resp BP Sys/Garrido Pulse Ox Last 24 Hr 98 F-98.2 F 60-72 18-20 109-121/51-63 98-98 GEN: AAOx3 immediate memory recall intact, paranoid HEENT: PERRLA, EOMi CV: S1, S2, RRR LUNG: CTABL ABD: Soft, NT, ND, normoactive BS MSK: Scattered excoriations along body NEURO: Difficult to assess, patient is still tangential in thoughts. But MSK and sensation intact. Laboratory Results - last 24 hr 06/04/17 06/04/17 06/04/17 19:00 19:00 19:00 Vitamin B12 567 TSH 0.88 RPR Titer Nonreactive Active Medications Generic Name Dose Route Start Last Admin Trade Name Freq PRN Reason Stop Dose Admin Amino Acids 30 ml 05/26/17 08:00 06/04/17 17:29 Prosource No Carb Liquid Pkt PO Not Given BID@0800,1730 MOJGAN Escitalopram Oxalate 10 mg 05/27/17 10:00 06/04/17 09:54 Lexapro - PO 10 mg DAILY MOJGAN Administration Multivitamins/Minerals/Vitamin C 1 tab 05/26/17 10:00 06/04/17 09:54 Tab-A-Vit - PO 1 tab DAILY MOJGAN Administration Olanzapine 2.5 mg 05/29/17 22:00 06/04/17 21:21 Zyprexa - PO 2.5 mg HS MOJGAN Administration ASSESSMENT/PLAN: Ms Ramey is a 71yo F with no significant PMHx, no psychiatric history, who was brought to the ER by her sister due to gradual onset AMS after poor PO intake. Found to have significant hypernatremia of 155. # Acute on Chronic Encephalopathy - metabolic w/u neg, likely underlying psych condition exacerbated by stressors - Continue with Zyprexa 2.5mg QD, Lexapro 10mg daily - Normal CBC, CMP, Hep Panel, B12, TSH, RPR, LFTs; Negative MRI - Involuntarily transfer to inpatient psych, papers signed, 1:1, awaiting bed , Dr. Story in agreement # FEN - No IVF, sodium controlled diet # PPx - Heparin SQ TID, PT ordered # Dispo Pt is medically stable, continuing to fill out paperwork for transfer for inpatient psych d/w Dr Jenny Matt MD - PGY1 Internal Medicine Visit type - Emergency Visit Emergency Visit: No - New Patient This patient is new to me today: No - Critical Care Critical Care patient: No - Discharge Referral Referred to [facility] Med P.C.: No
[2017-06-05] MEDS: AMINO ACIDS/PROTEIN HYDROLYS 30 ML LIQUID.PKT PO SCH ×2 (09:46→17:15)
[2017-06-05] MEDS: MULTIVITAMINS (DAILY MVI) TABLET (FP) PO SCH (09:49)
[2017-06-05] MEDS: ESCITALOPRAM OXALATE 10 MG TABLET (FP) PO SCH (09:49)
--- NOTE | 2017-06-05 10:15 | PN ---
Progress Note (short form) - Note Progress Note: Neurology History of Present Illness The patient is a 71 year old female, with reportedly no significant past medical history who presented to the emergency department reportedly accompanied by family members with signs of altered mental status for an unknown period of time. As per sister who arrived to the patients home from [place] n day of admission, the patient was found to be increasingly confused and with multiple lesions to the head, feet, and other extremities. Sister reports patient was able to recognize her and open the door. Family reports the patient lives at home with her brother. As per brother, patient visited her father at the hospital 1 week ago, and since then she has not wanted to leave the house, has been pulling her hair out, missing meals, and not bathing. Family states patient has been under a lot of stress over the past 6 months, as she has been hypervigilant over her father who has been at a alf facility. The patient's brother reported she has had multiple episodes of urinary incontinence and she has complained of dysuria. Patient states the words are not making sense. the patient was admitted for further evaluation and management. She completed a noncontrast head CT which did not show any acute changes. Awaiting bed at psych facility. 1:1 present, no acute events overnight. Active Medications Amino Acids (Prosource No Carb Liquid Pkt) 30 ml PO BID@0800,1730 [facility] Last Admin: 06/05/17 09:46 Dose: Not Given Escitalopram Oxalate (Lexapro -) 10 mg PO DAILY [facility] Last Admin: 06/05/17 09:49 Dose: 10 mg Multivitamins/Minerals/Vitamin C (Tab-A-Vit -) 1 tab PO DAILY [facility] Last Admin: 06/05/17 09:49 Dose: 1 tab Olanzapine (Zyprexa -) 2.5 mg PO HS [facility] Last Admin: 06/04/17 21:21 Dose: 2.5 mg *Physical Exam Vital Signs Temperature 97.6 F 06/05/17 09:52 Pulse Rate 74 06/05/17 09:52 Respiratory Rate 18 06/05/17 09:52 Blood Pressure 126/72 06/05/17 09:52 O2 Sat by Pulse Oximetry (%) 98 06/04/17 21:00 CONSTITUTIONAL: Awake and alert; in no apparent distress HEAD: Normocephalic; atraumatic; + numerous excoriated circular lesions to the scalp; EYES: PERRL; EOM intact; no photophobia ENMT: External appears normal; mm-dry NECK: Supple; non-tender; no cervical lymphadenopathy; CARD: Normal S1, S2; no murmurs, rubs, or gallops RESP: Normal chest excursion with respiration; breath sounds clear and equal bilaterally; no wheezes, rhonchi, or rales ABD: Soft, non-distended; non-tender; no palpable organomegaly, no palpable hernias EXT: Normal ROM in all four extremities; non-tender to palpation; distal pulses intact SKIN: Warm, dry, + numerous circular (approximately 0.5 cm in diameter), excoriated lesions to upper chest, upper and mid back and lower extremities; CBCD WBC 7.5 K/mm3 (4.0-10.0) 06/03/17 12:00 RBC 4.55 M/mm3 (3.60-5.2) 06/03/17 12:00 Hgb 13.0 GM/dL (10.7-15.3) 06/03/17 12:00 Hct 40.2 % (32.4-45.2) 06/03/17 12:00 MCV 88.3 fl (80-96) 06/03/17 12:00 MCHC 32.5 g/dl (32.0-36.0) 06/03/17 12:00 RDW 15.3 % (11.6-15.6) 06/03/17 12:00 Plt Count 247 K/MM3 (134-434) D 06/03/17 12:00 MPV 8.9 fl (7.5-11.1) D 06/03/17 12:00 CMP Sodium 142 mmol/L (136-145) 06/03/17 15:40 Potassium 4.0 mmol/L (3.5-5.1) 06/03/17 15:40 Chloride 106 mmol/L (98-107) 06/03/17 15:40 Carbon Dioxide 27 mmol/L (21-32) 06/03/17 15:40 Anion Gap 9 (8-16) 06/03/17 15:40 BUN 18 mg/dL (7-18) 06/03/17 15:40 Creatinine 0.7 mg/dL (0.55-1.02) D 06/03/17 15:40 Creat Clearance w eGFR > 60 (>60) 05/26/17 06:30 Calcium 9.2 mg/dL (8.5-10.1) 06/03/17 15:40 Total Bilirubin 0.5 mg/dL (0.2-1.0) D 06/03/17 12:00 AST 25 U/L (15-37) D 06/03/17 12:00 ALT 51 U/L (12-78) D 06/03/17 12:00 Alkaline Phosphatase 84 U/L (45-117) 06/03/17 12:00 Total Protein 6.3 g/dl (6.4-8.2) L 06/03/17 12:00 Albumin 3.2 g/dl (3.4-5.0) L 06/03/17 12:00 - RADIOLOGY CT head as reported MRI brain as reported Medical Decision Making 71 year old female, with reportedly no significant past medical history who presented to the emergency department reportedly accompanied by family members with signs of altered mental status for an unknown period of time. She completed a noncontrast head CT which did not show any acute changes. She was seen by psychiatry and has been put on Zyprexa and Lexapro Deemed not to have decision making capacity MRI brain with age related changes but no acute abnormalities and mild volume loss that is expected for age Continued PO and IV hydration Plan for inpatient psych admission Agree with psych admission plan Awaiting bed at a facility Continue 1:1 monitoring for safety Remains paranoid
--- NOTE | 2017-06-05 13:16 | PN ---
Teaching Attending Note Name of Resident: Agapito Matt ATTENDING PHYSICIAN STATEMENT I saw and evaluated the patient. I reviewed the resident's note and discussed the case with the resident. I agree with the resident's findings and plan as documented. SUBJECTIVE:paranoid we are speaking to her that means something may be wrong. denies CP, SOB OBJECTIVE: Last Vital Signs Temp Pulse Resp BP Pulse Ox 97.6 F 74 18 126/72 98 06/05/17 09:52 06/05/17 09:52 06/05/17 09:52 06/05/17 09:52 06/05/17 09:00 general NAD ASSESSMENT AND PLAN: 71 yo F with no significant medical history who presented to the ER with confusion and poor oral intake. 1. Encephalopathy with paranoia- remains paranoid. workup negative. pt poses risk to others due to hallucinations and commands. on 1:1 observation. 2 PC committed. awaiting bed availability at inpatient psych. zyprexa dose decreased due to transaminitis, started on lexapro. neuropsych and neuro on board 2. Acute transaminitis- possible due to zyprexa. now resolved. hepatits panel negative. 3. Hypernatremia-due to poor oral intake. resolved. 4. Hypokalemia- Resolved 5, leukocytosis- likely reactive. no signs of infection. resolved 6. DVT ppx- lovenox 7. Medically stable for transfer for inpatient psych. there is no acute medical issue that requires inpatient care.
--- NOTE | 2017-06-05 16:59 | DS ---
Physical Exam: SUBJECTIVE: Patient seen and examined this AM. Still paranoid, stating that she doesn't want the examiner to leave. She is worried that she is not eating enough , asking if it is a problem. OBJECTIVE: Vital Signs Period Temp Pulse Resp BP Sys/Garrido Pulse Ox Last 24 Hr 97.6 F-98.2 F 64-74 18-20 114-126/55-72 98-98 PHYSICAL EXAM GEN: AAOx3 immediate memory recall intact, paranoid HEENT: PERRLA, EOMi CV: S1, S2, RRR LUNG: CTABL ABD: Soft, NT, ND, normoactive BS MSK: Scattered excoriations along head and body NEURO: Difficult to assess, patient is still tangential in thoughts. But MSK and sensation intact. LABS Laboratory Last Values WBC 7.5 K/mm3 (4.0-10.0) 06/03/17 12:00 RBC 4.55 M/mm3 (3.60-5.2) 06/03/17 12:00 Hgb 13.0 GM/dL (10.7-15.3) 06/03/17 12:00 Hct 40.2 % (32.4-45.2) 06/03/17 12:00 MCV 88.3 fl (80-96) 06/03/17 12:00 MCH 28.7 pg (25.7-33.7) 06/03/17 12:00 MCHC 32.5 g/dl (32.0-36.0) 06/03/17 12:00 RDW 15.3 % (11.6-15.6) 06/03/17 12:00 Plt Count 247 K/MM3 (134-434) D 06/03/17 12:00 MPV 8.9 fl (7.5-11.1) D 06/03/17 12:00 Neutrophils % 45.6 % (42.8-82.8) D 05/22/17 13:29 Lymphocytes % 39.3 % (8-40) D 05/22/17 13:29 Monocytes % 11.4 % (3.8-10.2) H 05/22/17 13:29 Eosinophils % 2.8 % (0-4.5) 05/22/17 13:29 Basophils % 0.9 % (0-2.0) 05/22/17 13:29 RBC Morphology 05/22/17 13:29 PT with INR 13.30 SEC (9.98-11.88) H 05/16/17 18:00 INR 1.18 (0.82-1.09) H 05/16/17 18:00 Sodium 142 mmol/L (136-145) 06/03/17 15:40 Potassium 4.0 mmol/L (3.5-5.1) 06/03/17 15:40 Chloride 106 mmol/L (98-107) 06/03/17 15:40 Carbon Dioxide 27 mmol/L (21-32) 06/03/17 15:40 Anion Gap 9 (8-16) 06/03/17 15:40 BUN 18 mg/dL (7-18) 06/03/17 15:40 Creatinine 0.7 mg/dL (0.55-1.02) D 06/03/17 15:40 Creat Clearance w eGFR > 60 (>60) 05/26/17 06:30 POC Glucometer 88 UNITS (80-120) 05/30/17 16:40 Random Glucose 82 mg/dL (74-106) 06/03/17 15:40 Calcium 9.2 mg/dL (8.5-10.1) 06/03/17 15:40 Magnesium 2.2 mg/dL (1.8-2.4) 05/25/17 07:00 Total Bilirubin 0.5 mg/dL (0.2-1.0) D 06/03/17 12:00 Direct Bilirubin 0.2 mg/dL (0.0-0.2) D 06/03/17 12:00 AST 25 U/L (15-37) D 06/03/17 12:00 ALT 51 U/L (12-78) D 06/03/17 12:00 Alkaline Phosphatase 84 U/L (45-117) 06/03/17 12:00 Creatine Kinase 22 IU/L (26-192) L 05/25/17 07:00 Ammonia < 10.00 umol/L (11-32) L 06/03/17 15:40 Troponin I < 0.02 ng/ml (0.00-0.05) 05/16/17 18:00 Total Protein 6.3 g/dl (6.4-8.2) L 06/03/17 12:00 Albumin 3.2 g/dl (3.4-5.0) L 06/03/17 12:00 Vitamin B12 567 pg/ml (180-914) 06/04/17 19:00 TSH 0.88 uIU/ml (0.358-3.74) 06/04/17 19:00 Urine Color Isi 05/16/17 19:52 Urine Appearance Slcloudy 05/16/17 19:52 Urine pH 5.0 (5.0-8.0) 05/16/17 19:52 Ur Specific [place] 1.025 (1.005-1.025) 05/16/17 19:52 Urine Protein 1+ (NEGATIVE) H 05/16/17 19:52 Urine Glucose (UA) 1+ (NEGATIVE) H 05/16/17 19:52 Urine Ketones Trace (NEGATIVE) H 05/16/17 19:52 Urine Blood Negative (NEGATIVE) 05/16/17 19:52 Urine Nitrite Negative (NEGATIVE) 05/16/17 19:52 Urine Bilirubin Negative (NEGATIVE) 05/16/17 19:52 Urine Urobilinogen 2.0 mg/dL (0.2-1.0) H 05/16/17 19:52 Ur Leukocyte Esterase Negative (NEGATIVE) 05/16/17 19:52 Urine RBC 1 /hpf (0-3) 05/16/17 19:52 Urine WBC 4 /hpf (3-5) 05/16/17 19:52 Ur Epithelial Cells Rare /hpf (FEW) 05/16/17 19:52 Urine Bacteria Rare /hpf (NONE SEEN) 05/16/17 19:52 Hyaline Casts 9 /lpf 05/16/17 19:52 Urine Mucus Few 05/16/17 19:52 Urine Osmolality 1208 mosm/kg (300-900) H 05/16/17 23:37 Ur Random Sodium 223 MMOL/L 05/16/17 23:37 Salicylates < 4.0 mg/dl (0.0-30.0) 05/16/17 18:00 Opiates Screen Negative ng/ml (DCYZSF=457) 05/16/17 18:00 Methadone Screen Negative ng/ml (NSNYIF=902) 05/16/17 18:00 Acetaminophen < 2.0 ug/ml (10.0-30.0) L 05/16/17 18:00 Barbiturate Screen Negative ng/ml (TIHOFG=010) 05/16/17 18:00 Phencyclidine Screen Negative ng/ml (CUTOFF=25) 05/16/17 18:00 Ur Amphetamines Screen Negative ng/ml (OPWCIE=428) 05/16/17 18:00 MDMA (Ecstasy) Screen Negative ng/ml (ZWUYMA=588) 05/16/17 18:00 Benzodiazepines Screen Negative ng/ml (AYKTMS=124) 05/16/17 18:00 Cocaine Screen Negative ng/ml (XKCRNG=336) 05/16/17 18:00 U Marijuana (THC) Screen Negative ng/ml (CUTOFF=50) 05/16/17 18:00 Alcohol, Quantitative < 5.0 mg/dl (0-5) 05/16/17 18:00 RPR Titer Nonreactive (NONREACTIVE) 06/04/17 19:00 Hepatitis A IgM Ab Negative (Negative) 05/24/17 07:54 Hep Bs Antigen Negative (Negative) 05/24/17 07:54 Hep B Core IgM Ab Negative (Negative) 05/24/17 07:54 Hepatitis C Ab (EIA) <0.1 s/co ratio (0.0-0.9) 05/24/17 07:54 HOSPITAL COURSE: Date of Admission:05/16/17 Date of Discharge: 06/06/17 Briefly, Ms Ramey is a 71yo F with no significant past medical history, no psychiatric history, who was brought to the Emergency Department by her sister due to Altered Mental status. History was taken from sister and from ER records of what the brother stated. The patient had been vigilantly taking care of her sick father in a [facility]. The sister (who lives out of town) would talk to her over the phone, and slowly notice a decline in her mental status over the past 1 month, stating her words would get shorter, and her thoughts would make less sense. For the past week she did not want to leave her house, and has been pulling her hair out, skipping meals, not drinking water, or bathing. When the sister came to visit, she saw the patient dry, eyes sunken, unkempt, with urine on the floor, and noticeably paranoia saying "you all are not real". She was found to have a hypernatremia of 155, which was slowly titrated down to normal with fluids, with no improvement in mental status. Numerous labs were taken which showed no metabolic cause to her encephalopathy, and a brain MRI showed no acute pathology. She was followed by Psychiatry who started her on Lexapro 10mg daily and Zyprexa 5mg, which was decreased to 2.5mg due to transaminitis. Throughout her stay, the patient continued to remain noticeably paranoid, and fixating on the concept of , writing numerous notes about dying. She has very poor insight and judgment. She hallucinates about a male figure who speaks to her and tells her she and her family have to "pay for what she has done". Because she is a threat to herself and others, the decision was made to transfer the patient involuntarily to an inpatient psychiatric facility.The patient's family was in agreement with this decision. The patient is medically stable for discharge. Minutes to complete discharge: 45 Discharge Summary Reason For Visit: AMS HYPERNATREMIA Current Active Problems Altered mental status (Acute) Hypernatremia (Acute) Condition: Guarded - Instructions Diet, Activity, Other Instructions: RECOMMENDATIONS: - You were admitted because of a change in your mental status - We think you have an underlying psychiatric illness that got worse, you need to be transferred to an inpatient psychiatric facility - You need to take your Zyprexa every night - You will be receiving visiting nurse services who will assess your home- care and physical therapy needs - Please continue to eat and drink, to avoid dehydration NEW MEDICATIONS: - Zyprexa 2.5mg by mouth every night - Lexapro 10mg by mouth daily FOLLOWUPS: - Dr. Simon (Psychologist) - in 2 weeks - Dr Owen (Primary Care Doctor) - in 2 weeks Referrals: Manuel Simon PSYD [Psychologist] - 2 Weeks Manuel Owen MD [Staff Physician] - 2 Weeks Disposition: HOME - Home Medications Comprehensive Discharge Medication List: Ambulatory Orders Escitalopram Oxalate [Lexapro -] 10 mg PO DAILY tablet 05/29/17 Olanzapine [Zyprexa -] 2.5 mg PO HS tablet 05/29/17 This patient is new to me today: No Emergency Visit: No Critical Care patient: No - Discharge Referral Referred to [facility] Med P.C.: No
[2017-06-05] MEDS ORDERED: PT OWN MED DRAWER 7, Y5N ONE (20:24)
[2017-06-05] MEDS: OLANZapine 2.5 MG TABLET PO SCH (21:07)
[2017-06-06] MEDS: AMINO ACIDS/PROTEIN HYDROLYS 30 ML LIQUID.PKT PO SCH (08:30)
[2017-06-06] MEDS: MULTIVITAMINS (DAILY MVI) TABLET (FP) PO SCH (09:00)
[2017-06-06] MEDS: ESCITALOPRAM OXALATE 10 MG TABLET (FP) PO SCH (09:00)
--- NOTE | 2017-06-06 09:00 | PN ---
Teaching Attending Note Name of Resident: Agapito Matt ATTENDING PHYSICIAN STATEMENT I saw and evaluated the patient. I reviewed the resident's note and discussed the case with the resident. I agree with the resident's findings and plan as documented. SUBJECTIVE:has no complaints. denies CP, SOB OBJECTIVE: Last Vital Signs Temp Pulse Resp BP Pulse Ox 97.9 F 89 18 118/65 98 06/06/17 07:21 06/06/17 07:21 06/06/17 07:21 06/06/17 07:21 06/05/17 21:00 general NAD ASSESSMENT AND PLAN: 71 yo F with no significant medical history who presented to the ER with confusion and poor oral intake. 1. Encephalopathy with paranoia- remains paranoid. workup negative. pt poses risk to others due to hallucinations and commands. on 1:1 observation. 2 PC committed. awaiting bed availability at inpatient psych. zyprexa dose decreased due to transaminitis, started on lexapro. neuropsych and neuro on board 2. Acute transaminitis- possible due to zyprexa. now resolved. hepatits panel negative. 3. Hypernatremia-due to poor oral intake. resolved. 4. Hypokalemia- Resolved 5, leukocytosis- likely reactive. no signs of infection. resolved 6. DVT ppx- lovenox 7. Medically stable for transfer for inpatient psych. d/c to [facility] inpatient psych unit.
[2017-06-06 09:24] VITALS: BP 107/52; PULSE 74; TEMP 98.1
== END 2017-06-06 10:00 | disposition home or self-care (01) | DRG 885 ==
LOC: JER 16:28 → JERBED 22:09 → J8W 05-17 01:08
PROVIDERS: ADMIT Internal Medicine; ATTEND Internal Medicine
DX: F22 Delusional disorders (principal); G93.41 Metabolic encephalopathy; E87.0 Hyperosmolality and hypernatremia; N17.9 Acute kidney failure, unspecified; R44.0 Auditory hallucinations; F32.3 Major depressive disorder, single episode, severe with psychotic features; R41.82 Altered mental status, unspecified; E86.0 Dehydration; E87.6 Hypokalemia; E78.1 Pure hyperglyceridemia; F03.90 Unspecified dementia, unspecified severity, without behavioral disturbance, psychotic disturbance, mood disturbance, and anxiety; D72.828 Other elevated white blood cell count; R74.0 Nonspecific elevation of levels of transaminase and lactic acid dehydrogenase [LDH]; E86.1 Hypovolemia
CPT/HCPCS: 36415; 70450-TC; 70551-TC; 71010-TC; 80048; 80053; 80074; 80076; 80307; 81003; 81015; 82140; 82550; 82607; 83735; 83935; 84300; 84443; 84484; 85025; 85027; 85610; 86593; 87086; 93005; 93010; 97116-GP; 97162-GP; 99281-25; J1644